=== PATIENT | male | born 1940 | race Caucasian/White ===

== ENCOUNTER 2016-06-28 05:46 | Day surgery (SDC) | payer BC, MEDICARE ==
[2016-06-22 16:56] VITALS: BMI 28.0
[2016-06-28] MEDS ORDERED: LACTATED RINGERS 1,000 ML IV SCH (06:06)
[2016-06-28] MEDS ORDERED: SODIUM CHLORIDE 0.9% 1,000 ML IV SCH ×2 (06:06→07:30)
[2016-06-28] MEDS ORDERED: BENZOCAINE SPRAY 100 APPLIC/CAN MUCOUS MEM ONE ×2 (07:00→07:09)
[2016-06-28] MEDS ORDERED: KETOROLAC 30 MG/ML 1 ML VIAL ONE (07:05)
[2016-06-28] MEDS ORDERED: PROPOFOL 10 MG/ML 20 ML VIAL IV ONE (07:05)
[2016-06-28 07:12] VITALS: RESP 16
[2016-06-28] MEDS ORDERED: FLUNISOLIDE INHALATION PRN (07:24)
[2016-06-28] MEDS ORDERED: NON-FORMULARY DRUG (Omeprazole [Prilosec] 20 MG) PO SCH (07:30)
--- NOTE | 2016-06-28 07:35 | ECHOT ---
DATE OF SERVICE: INDICATION: Evaluation of left atrial appendage. PROCEDURE: After explaining the procedure to the patient's, its risk and complications, his blood pressure, heart rate, O2 saturation was monitored. The throat was sprayed with Cetacaine. He received sedation per Anesthesia Department. The probe was introduced into the esophagus without difficulty. Images were obtained. Following that, the probe was removed. There was no immediate complication. FINDINGS: Left atrial size is mildly dilated. Left ventricular size and systolic function normal. The left atrial appendage is normal. Left ventricular size and systolic function are normal. The aortic valve with fibrocalcific change of aortic cusp with preserved opening. Mitral annular calcification was noted. The tricuspid valve is normal. Descending thoracic aorta revealed mild atherosclerotic changes. No pericardial effusion was noted. Contrast bubble study revealed no evidence of shunting across the interatrial septum. Doppler pulse wave obtained revealed a moderate mitral with mild to moderate tricuspid and mild aortic regurgitation. There was no shunting across the interatrial septum. CONCLUSION: 1. Normal left ventricular size and systolic function. 2. Dilated left atrium with normal appearance of left atrial appendage. 3. Aortic sclerosis with no evidence of stenosis. 4. Mitral annular calcification. 5. Moderate mitral with mild to moderate tricuspid regurgitation and mild aortic regurgitation. MTDD
--- NOTE | 2016-06-28 07:35 | CE ---
DATE OF SERVICE: CARDIOVERSION PROCEDURE NOTE INDICATIONS: Atrial flutter. PROCEDURE: After explaining the procedure to patient, its risks and complications and after performing transesophageal echocardiogram and obtaining sedated state by anesthesia department, a synchronized biphasic cardioversion using 200 joules was performed with druze of normal sinus rhythm. There was no immediate complication.
[2016-06-28 08:27] VITALS: TEMP 98
[2016-06-28 08:54] VITALS: BP 117/57; PULSE 74
[2016-06-28] MEDS ORDERED: predniSONE 10 MG TAB PO SCH (09:00)
[2016-06-28] MEDS ORDERED: THEOPHYLLINE 24 HOUR 300 MG CAP.ER.24H PO SCH (09:00)
[2016-06-28] MEDS ORDERED: DILTIAZEM CD 180 MG CAP.ER.24H PO SCH (09:00)
[2016-06-28] MEDS ORDERED: MONTELUKAST 10 MG TAB PO SCH (09:00)
[2016-06-28] MEDS ORDERED: AMIODARONE 200 MG TAB PO SCH (09:00)
[2016-06-28] MEDS ORDERED: NON-FORMULARY DRUG (Celecoxib 200 MG) PO SCH (09:00)
[2016-06-28] MEDS ORDERED: NON-FORMULARY DRUG (Rivaroxaban [Xarelto] 20 MG) PO SCH (09:00)
== END 2016-06-28 08:55 | disposition home or self-care (01) ==
LOC: CATHCVL 05:46
PROVIDERS: ATTEND Internal Medicine Interventional Cardiology
DX: I48.1 Persistent atrial fibrillation (principal); I25.10 Atherosclerotic heart disease of native coronary artery without angina pectoris; Z95.5 Presence of coronary angioplasty implant and graft; I08.3 Combined rheumatic disorders of mitral, aortic and tricuspid valves; I10 Essential (primary) hypertension; E78.5 Hyperlipidemia, unspecified; Z79.01 Long term (current) use of anticoagulants; Z79.51 Long term (current) use of inhaled steroids; Z79.52 Long term (current) use of systemic steroids; Z79.899 Other long term (current) drug therapy; Z88.6 Allergy status to analgesic agent; Z91.09 Other allergy status, other than to drugs and biological substances
CPT/HCPCS: 93312; 93320; 93005; 93325; 92960; J1885; J2704; 99152

== ENCOUNTER 2017-02-12 10:31 | Inpatient (IN) | payer BC, MEDICARE ==
[2017-02-12 16:38] LABS: Anisocytosis Slight; Basophils % (A) 0 %; CH 32.4; CHCM 32.6; Eosinophils # (A) 0.1 k/uL (0-0.7); Eosinophils % (A) 1 %; HCT 42.7 % (39.0-53.0); HDW 2.97; HGB 13.9 gm/dL (13.0-17.5); Luc # (Auto) 0.16; Luc % (Auto) 2; Lymphocytes # (A) 0.4 k/uL (1.0-4.8); Lymphocytes % (A) 5 %; MCH 32.5 pg (25.0-35.0); MCHC 32.5 g/dL (31.0-37.0); Macrocytosis Slight; Mean Platelet Volume 7.1; Monocytes # (A) 0.4 k/uL (0-1.0); Monocytes % (A) 5 %; Neutrophils # (A) 6.8 k/uL (1.3-7.7); Neutrophils % (A) 86 %; RBC 4.27 m/uL (4.30-5.90); RDW 16.5 % (11.5-15.5); WBC 7.9 k/uL (3.8-10.6); WBC (Perox) 8.57
[2017-02-12 16:47] LABS: Prothrombin Time 10.2 sec (9.0-12.0)
[2017-02-12 16:59] LABS: ALT 38 U/L (21-72); AST 23 U/L (17-59); Alkaline Phosphatase 59 U/L (38-126); Anion Gap 7 mmol/L; Blood Urea Nitrogen 18 mg/dL (9-20); Calcium 8.4 mg/dL (8.4-10.2); Carbon Dioxide 26 mmol/L (22-30); Chloride 105 mmol/L (98-107); Glucose 110 mg/dL (74-99); Non-African American GFR(MDRD) >60 (>60 ml/min/1.73 sqM); Potassium 4.5 mmol/L (3.5-5.1); Sodium 138 mmol/L (137-145); Total Bilirubin 0.4 mg/dL (0.2-1.3); Total Protein 5.4 g/dL (6.3-8.2)
[2017-02-12] MEDS: SODIUM CHLORIDE 0.9% 1,000 ML IV SCH (18:50)
[2017-02-12] MEDS ORDERED: BUDESONIDE 0.5 MG/2 ML NEBU INHALATION PRN (21:44)
[2017-02-13] MEDS: PANTOPRAZOLE 40 MG TABLET PO SCH (06:36)
[2017-02-13] MEDS: SODIUM CHLORIDE 0.9% 1,000 ML IV SCH ×2 (06:38→17:26)
[2017-02-13] MEDS: ALBUTEROL NEBULIZED 2.5 MG/3 ML INHALATION PRN (07:22)
[2017-02-13] MEDS ORDERED: DILTIAZEM CD 180 MG CAP.ER.24H PO SCH (09:00)
[2017-02-13] MEDS: MONTELUKAST 10 MG TAB PO SCH (09:09)
[2017-02-13] MEDS: MULTIVITAMINS, THERA 1 EACH TAB PO SCH (09:09)
[2017-02-13] MEDS: MELOXICAM 7.5 MG TAB PO SCH (09:10)
[2017-02-13] MEDS: CHOLECALCIFEROL 1,000 UNIT TAB PO SCH (09:10)
[2017-02-13] MEDS: RIVAROXABAN 10 MG TAB PO SCH (09:10)
[2017-02-13] MEDS: TAMSULOSIN 0.4 MG CAP.ER.24H PO SCH (09:11)
[2017-02-13] MEDS: THEOPHYLLINE 24 HOUR 300 MG CAP.ER.24H PO SCH (09:11)
[2017-02-13] MEDS: predniSONE 10 MG TAB PO SCH (09:11)
[2017-02-13] MEDS: CYANOCOBALAMIN 500 MCG TAB PO SCH (09:11)
--- NOTE | 2017-02-13 11:36 | ECHOF ---
Referral Reason:aflutter MEASUREMENTS -------- HEIGHT: 180.3 cm WEIGHT: 80.7 kg BP: 130/71 IVSd: 1.3 cm (0.6 - 1.1) LVIDd: 3.1 cm (3.9 - 5.3) LVPWd: 1.0 cm (0.6 - 1.1) EDV(Teich): 38 ml IVSs: 1.4 cm LVIDs: 2.2 cm LVPWs: 1.4 cm %IVS Thck: 9 % ESV(Teich): 16 ml EF(Teich): 57 % %FS: 29 % SV(Teich): 22 ml Ao Diam: 3.7 cm (2.0 - 3.7) AV Cusp: 1.9 cm (1.5 - 2.6) LA Diam: 2.8 cm (2.7 - 3.8) MV EXCURSION: 17.007 mm (> 18.000) MV EF SLOPE: 216 mm/s (70 - 150) MR Vmax: 1.27 m/s MR maxP.42 mmHg AV Vmax: 1.47 m/s AV maxP.63 mmHg AR Vmax: 3.44 m/s AR maxP.40 mmHg AR PHT: 512 ms AR Dec Time: 1765 ms AR Dec [place]: 2.0 m/s TR Vmax: 2.50 m/s TR maxP.10 mmHg RAP: 5.00 mmHg RVSP: 30.10 mmHg FINDINGS -------- The rhythm appears to be atrial flutter. This was a technically good study. There is mild concentric left ventricular hypertrophy. Overall left ventricular systolic function is normal with, an EF between 55 - 60 %. The right ventricle is normal in size and function. The left atrium is normal in size. The right atrium is normal in size. Aortic valve is trileaflet and is mildly thickened. There is mild aortic regurgitation. The mitral valve leaflets are mildly thickened. Mild mitral regurgitation is present. Mild tricuspid regurgitation present. The right ventricular systolic pressure, as measured by Doppler, is 30.10mmHg. Pulmonic valve appears structurally normal. The aortic root size is normal. The pericardium is normal. CONCLUSIONS -------- 1. The rhythm appears to be atrial flutter. 2. The mitral valve leaflets are mildly thickened. 3. Mild mitral regurgitation is present. 4. Mild tricuspid regurgitation present. 5. The right ventricular systolic pressure, as measured by Doppler, is 30.10mmHg. 6. Pulmonic valve appears structurally normal. 7. The aortic root size is normal. 8. The pericardium is normal. 9. This was a technically good study. 10. There is mild concentric left ventricular hypertrophy. 11. Overall left ventricular systolic function is normal with, an EF between 55 - 60 %. 12. The right ventricle is normal in size and function. 13. The left atrium is normal in size. 14. The right atrium is normal in size. 15. Aortic valve is trileaflet and is mildly thickened. 16. There is mild aortic regurgitation. G[employer] PLUMBING INSPECTOR: Angela Dukes RDCS
--- NOTE | 2017-02-13 14:49 | HP ---
CHIEF COMPLAINT: Shortness of breath and chest pain with palpitations going on close to 2 weeks with shortness of breath just starting over the last 24 hours. This is a 76-year-old white male with a longstanding history of atrial fib flutter who has been in atrial fib for a long period of time and had been asymptomatic and of a sudden had shortness of breath and nonspecific chest pain. Came to my office. He was seen to have borderline CHF with some pulmonary venous congestion. At that period of time was placed in the hospital accordingly. He was admitted up to [facility]. Patient came to the hospital and unbeknownst to me, instead of being placed upstairs was actually sat in a waiting area for up to 4-1/2 hours before he came upstairs. I just talked to Cardiology this morning and they received a consult on him 8:00, 9:00 last p.m. after I told the girl here up on [facility] to take care of him. Through the night he has had no chest pain. He is still short of breath and had a very restless night. His telemetry through the night showed a heart rate in atrial flutter somewhere between 80 to 130 and 140 which was much improved since his admission. He basically has also a history of asthma, COPD. He worked in the [employer] business for a long period of time. This gentleman had a longstanding history of cardiovascular disease. He has had cardiac stent placement. Other surgeries had with left knee total and herniography also and shoulder surgery. He had a reversed shoulder. His past medical history is that of hypertension, cardiovascular disease and atrial fib. His social history, patient is not a smoker, occasional drinker. Lives with his . His allergies are ASPIRIN and to IV DYE. His medications are that of a daily vitamin. He takes also vitamin B12. He takes a vitamin B6. He is on Xarelto 20 daily. Fosamax 0.4 daily. He is Lunesta 2 mg p.r.n. for sleep. Tylenol with Codeine No. 3 p.r.n. for severe back pain. Albuterol updrafts p.r.n. He is on Cardiozyme ER 180 at 24 hours, Spiriva 18 mcg by puff daily, Maxalt inhaler, Lasix 20 twice a day, Celebrex 200 mg daily, omeprazole 20 daily, prednisone 10, Theophylline 300 and potassium 10. He also was on [place] as needed for pain and Zaroxolyn 0.2 daily. There is some question about him still being on the amiodarone 200 mg a day. Cardiac consult has been taken care off and also an echocardiogram. REVIEW OF SYSTEMS: CARDIOPULMONARY: Shortness of breath, nonspecific chest pain with palpitations. This has been going on for 2 weeks with shortness of breath just being acute. GI: No hematemesis, melena, hematochezia, no constipation, no diarrhea. : Has been normal except he does have BPH and has a very hard time urinating without his Flomax. NEUROMUSCULAR: Has weakness in his arms and his legs, especially on his left side due to his polio longstanding and also some progressive arthritis. VASCULAR: He has some varicose veins in his lower legs with a fair amount of swelling. He does have a history of coronary artery disease. INTEGUMENTARY: He has got some stasis dermatitis and also varicosities in his legs. PHYSICAL EXAMINATION: Temperature is 100, blood pressure is 130/70, respiratory rate is 18, pulse rate is 84. EYES: Pupils are equal, round and reactive to light and accommodation. ENT showed tympanic membranes and pharynx appears to be negative. Neck is supple with a midline trachea. Chest has decreased breath sounds throughout. Heart is in a regular rate and on EKG shows evidence of a flutter. Abdomen is soft, nontender with no organomegaly. Lower extremities, he has got arthritis in these and you can see the knee replacement scar. He has got swelling in the lower legs along with varicosities. He has got this very distorted feet with severe arthritis, polio on the left side of his arm and hand with atrophy. He has decreased shoulder range of motion in both sides. He has got decreased hand strength on the right side because of polio but also because of arthritis. The cervical spine has decreased limitations of the neck. He has some kyphosis, lower back range of motion is within normal limits but patient is very unsteady on his legs and pain in his lower back. ASSESSMENT: 1. Acute onset of atrial flutter, acute atrial fibrillation/flutter. 2. Hypertension. 3. Polio. 4. Severe asthma, secondary chronic obstructive pulmonary disease. 5. Previous history of atrial fibrillation. 6. Benign prostatic hypertrophy. 7. Generalized osteoarthritis. 8. Previous history of coronary artery disease with stent placement. PLAN: Patient was now admitted. I talked with Cardiology. They will see him immediately and follow him accordingly. LEE
[2017-02-13] MEDS: DILTIAZEM ORAL 60 MG TAB PO SCH ×3 (17:26→20:58)
[2017-02-13 20:48] LABS: Glucose,Whole Blood 123 mg/dL (75-99)
[2017-02-13] MEDS: HYDROcodone/APAP 10-325MG 1 EACH TAB PO PRN (23:27)
[2017-02-14] MEDS: PANTOPRAZOLE 40 MG TABLET PO SCH (07:03)
[2017-02-14] MEDS: RIVAROXABAN 10 MG TAB PO SCH (08:44)
[2017-02-14] MEDS: MELOXICAM 7.5 MG TAB PO SCH (08:44)
[2017-02-14] MEDS: MULTIVITAMINS, THERA 1 EACH TAB PO SCH (08:44)
[2017-02-14] MEDS: DILTIAZEM ORAL 60 MG TAB PO SCH ×3 (08:44→20:27)
[2017-02-14] MEDS: CHOLECALCIFEROL 1,000 UNIT TAB PO SCH (08:44)
[2017-02-14] MEDS: predniSONE 10 MG TAB PO SCH (08:44)
[2017-02-14] MEDS: TAMSULOSIN 0.4 MG CAP.ER.24H PO SCH (08:44)
[2017-02-14] MEDS: CYANOCOBALAMIN 500 MCG TAB PO SCH (08:44)
[2017-02-14] MEDS: THEOPHYLLINE 24 HOUR 300 MG CAP.ER.24H PO SCH (08:44)
[2017-02-14] MEDS: MONTELUKAST 10 MG TAB PO SCH (08:44)
--- NOTE | 2017-02-14 12:38 | P.PN ---
Subjective Principal diagnosis: Atrial flutter This is a 76-year-old gentleman with history of hypertension, asthma, COPD, who presented to the hospital with symptoms of shortness of breath with associated palpitations. Patient was found to be in atrial flutter by EKG on admission. He was seen in consultation yesterday by Dr. Heredia. Cardizem orally was added to his medication regime. Patient has been on Xarelto as an outpatient for paroxysmal atrial fibrillation. Patient was advised to undergo atrial flutter ablation, this will be scheduled tomorrow with Dr. Borrego. This morning he continues to be in atrial flutter. Overall he states that his breathing is stable. CBC normal, potassium 4.5, BUN 18, creatinine 0.7. TSH is 0.3, troponins negative 3. Blood pressure today 112/60 with a heart rate in the 80s. Temperature 97.9. Echocardiogram with Doppler study was performed which revealed normal left ventricular systolic function. Objective - Vital Signs Vital signs: Vital Signs Temp 97.9 F 02/14/17 12:00 Pulse 82 02/14/17 12:00 Resp 16 02/14/17 12:00 BP 112/62 02/14/17 12:00 Pulse Ox 96 02/14/17 12:00 Intake & Output 02/13/17 02/14/17 02/14/17 18:59 06:59 18:59 Intake Total 1200 150 Output Total 350 Balance 850 150 Weight 80.9 kg Intake: IV 0 Sodium Chloride 0.9% 1, 0 000 ml @ 75 mls/hr IV . [id number] JIMMY Rx#:[id number] Oral 1200 150 Output: Urine 350 Other: # Voids 1 # Bowel Movements 0 - Exam PHYSICAL EXAMINATION: HEENT: Head is atraumatic, normocephalic. Pupils equal, round. Neck is supple. There is no elevated jugular venous pressure. HEART EXAMINATION: S1 and S2 irregularly irregular CHEST EXAMINATION: Lungs are clear to auscultation and precussion. No chest wall tenderness is noted on palpation or with deep breathing. ABDOMEN: Soft, nontender. Bowel sounds are heard. No organomegaly noted. EXTREMITIES: 2+ peripheral pulses with no evidence of peripheral edema and no calf tenderness noted. NEUROLOGIC patient is awake, alert and oriented -3. . - Labs CBC & Chem 7: 02/12/17 16:15 02/12/17 16:15 Labs: Abnormal Lab Results - Last 24 Hours (Table) 02/13/17 Range/Units 20:46 POC Glucose (mg/dL) 123 H (75-99) mg/dL Assessment and Plan (1) Atrial flutter Status: Acute (2) Paroxysmal a-fib Status: Acute (3) Asthma Status: Acute (4) Sleep apnea Status: Acute (5) CAD (coronary artery disease) Status: Acute Plan: From cardiology's perspective, we'll continue the patient on his current medications. He will be scheduled for atrial flutter ablation tomorrow with Dr. Borrego. DNP note has been reviewed, I agree with a documented findings and plan of care. Patient was seen and examined.
[2017-02-14] MEDS: SODIUM CHLORIDE 0.9% 1,000 ML IV SCH (15:25)
--- NOTE | 2017-02-14 15:42 | CONS ---
CONSULTATION Date of Consultation: DATE OF CONSULTATION: 02/13/2017 This is a patient of Dr. Cancino and Dr. Larose who presented to Dr. Larose's office complaining of shortness of breath for the last several weeks, and particularly so for the weekend prior. He denied any chest discomfort. He was just complaining of shortness of breath and lack of energy, tiredness and fatigue. When he came into the hospital he was in atrial flutter with RVR. He was sent by Dr. Larose to the ER and then subsequently came upstairs to the telemetry unit. When I saw him, he was still in atrial flutter and he has been anticoagulated appropriately. No loss of consciousness, dizziness, simply shortness of breath, tiredness and fatigue. PAST HISTORY: Atrial fibrillation. He has undergone electrical cardioversion by Dr. Cacnino about 6 months back. At that time, he had a ALEXANDER. He does have a mild RA and RV enlargement LV function is normal. Past history also includes hypertension, COPD. SOCIAL HISTORY: No history of smoking, occasional alcohol use. ALLERGIES: ASPIRIN and IV DYE. MEDICATIONS AT HOME: Reviewed and are documented in the chart and they include vitamins, Xarelto 20 mg p.o. daily, Fosamax, Lunesta, Tylenol with codeine, Cardizem ER 180 mg daily, Spiriva, Maxair, Lasix, Celebrex, omeprazole, prednisone 10 mg daily, Theophylline and potassium. He also takes Zaroxolyn as needed. REVIEW OF SYSTEMS: No fever, chills, or rigors. No cough or expectoration. No nausea, vomiting or diarrhea. No hematuria or dysuria. No stroke, seizures, skin lesions or musculoskeletal complaints. PHYSICAL EXAMINATION: His blood pressure on admission was 130/70 mmHg and his pulse rate is in the 80s to 90s. HEAD AND NECK EXAMINATION: Normal, no JVD, thyromegaly or carotid bruits. Heart sounds irregular with no murmurs, gallops, no rub. Breath sounds are reduced bilaterally. The are very faint rhonchi, no crackles bilaterally. Abdomen is soft, nontender. Extremities are warm, no edema. He has had knee surgery in the past. A 12-lead ECG shows a rhythm consistent with typical atrial flutter. IMPRESSION: 1. Atrial flutter, symptomatic on anticoagulation with Xarelto 20 mg p.o. daily. 2. Atrial fibrillation status post electrical cardioversion 6 months back. 3. Hypertension. 4. History of polio. 5. History of asthma, on steroids. 6. Past history of coronary artery disease with stent placement. SUGGEST: Continue anticoagulation with Xarelto 20 mg p.o. daily. Switch from oral Cardizem to short-acting Cardizem. Will hold Cardizem after 24 hours and proceed with atrial flutter ablation. This gentleman is already anticoagulated and will proceed with atrial flutter ablation on and hopefully he should be able to go home on Sunday. Check TSH. MMODL / IJN: [id number] /
[2017-02-15] MEDS: PANTOPRAZOLE 40 MG TABLET PO SCH (06:21)
[2017-02-15] MEDS: CHOLECALCIFEROL 1,000 UNIT TAB PO SCH (06:22)
[2017-02-15] MEDS: MELOXICAM 7.5 MG TAB PO SCH (06:22)
[2017-02-15] MEDS: CYANOCOBALAMIN 500 MCG TAB PO SCH (06:22)
[2017-02-15] MEDS: RIVAROXABAN 10 MG TAB PO SCH (06:24)
[2017-02-15] MEDS: predniSONE 10 MG TAB PO SCH (06:24)
[2017-02-15] MEDS: MONTELUKAST 10 MG TAB PO SCH (06:24)
[2017-02-15] MEDS: MULTIVITAMINS, THERA 1 EACH TAB PO SCH (06:24)
[2017-02-15] MEDS: SODIUM CHLORIDE 0.9% 1,000 ML IV SCH (06:25)
[2017-02-15] MEDS: THEOPHYLLINE 24 HOUR 300 MG CAP.ER.24H PO SCH (06:25)
[2017-02-15] MEDS: TAMSULOSIN 0.4 MG CAP.ER.24H PO SCH (06:25)
[2017-02-15] MEDS: ALBUTEROL NEBULIZED 2.5 MG/3 ML INHALATION PRN (09:03)
--- NOTE | 2017-02-15 11:14 | PN ---
This is a 76 -year-old white male that came in with acute atrial flutter. At this point, he is being, I talked with Dr. Borrego, he is being set up for ablation tomorrow. He has less shortness of breath, less chest pain. His flutter is unchanged anywhere from 80 to 120. No further chest pain at this time. Again, this gentleman has longstanding history of COPD. He has history of polio. History of atrial fib, hypertension, asthma and previous cardiac stent placement. Surgeries include that of total knee, hernia repair, shoulder , reverse shoulder surgery. Medications are unchanged from previous noted yesterday. Review of systems: Cardiopulmonary: Still some shortness of breath, nonspecific. Palpitations. No chest pain. No paroxysmal nocturnal dyspnea. Did not get much sleep last night the patient states. GI: No hematemesis, melena or hematochezia, constipation or diarrhea. : Normal except for BPH. He had a hard time urinating ( ). Neuromuscular: Just weakness in legs and arms especially left side due to polio. Some progressive arthritis. Varicose veins positive in both legs. Coronary artery disease. Integument: Stasis dermatitis and varicosity disease in his legs. PHYSICAL EXAMINATION: Temperature 98, heart rate was 83. Blood pressure 117/ 81. Respiratory rate 16. Eyes: Pupils are equal, round and reactive to light and accommodation. ENT: Tympanic membranes and pharynx to be negative. Neck is supple with midline trachea. Chest is essentially clear to auscultation with minimal wheezes. Heart is irregularly irregular with atrial flutter. Abdomen soft, nontender with no organomegaly. Weakness in left leg and deformity to his left hand from polio plus swelling in right lower leg. Lab work from yesterday Chem-17 is within normal limits as is hematological stable. Blood sugars have also been normal. ASSESSMENT: 1. Acute atrial flutter, history of atrial fibrillation. 2. History of polio. 3. Long standing history of hypertension. 4. Longstanding asthma. 5. Benign prostatic disorder. 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 7. Previous coronary artery disease with stent placement. 8. Generalized osteoarthritis. PLAN: I talked with Dr. Borrego. The patient is being set up for ablation. He understands all and was explained to accordingly. Please refer to my orders. MTDD
[2017-02-15] MEDS ORDERED: MIDAZOLAM 2 MG/2 ML VIAL IV ONE (11:21)
[2017-02-15] MEDS ORDERED: MIDAZOLAM 2 MG/2 ML VIAL ONE ×2 (11:22→12:23)
[2017-02-15] MEDS ORDERED: IV FLUID CONTINUATION 1,000 ML IV ONE (12:23)
[2017-02-15] MEDS ORDERED: NEOSTIGMINE 1 MG/ML 10 ML VIAL ONE (12:23)
[2017-02-15] MEDS ORDERED: fentaNYL (PF) 50 MCG/ML 2 ML AMP ONE (12:23)
[2017-02-15] MEDS ORDERED: LIDOCAINE 1% INJ 10MG/ML (20 ML MDV) ONE (12:23)
[2017-02-15] MEDS ORDERED: GLYCOPYRROLATE 0.2 MG/ML 2 ML VIAL ONE (12:23)
[2017-02-15] MEDS ORDERED: PHENYLEPHRINE-0.9% NACL SYG 1 MG/10 ML SYRINGE ONE (12:23)
[2017-02-15] MEDS ORDERED: SUCCINYLCHOLINE CHLORIDE 100 MG/5 ML SYR IV ONE (12:23)
[2017-02-15] MEDS ORDERED: ROCURONIUM BROMIDE 10 MG/ML 10 ML VIAL IV ONE (12:23)
[2017-02-15] MEDS ORDERED: ePHEDrine SULFATE/0.9% NACL/PF 50 MG/5 ML SYRINGE IV ONE (12:23)
[2017-02-15] MEDS ORDERED: PROPOFOL 10 MG/ML 20 ML VIAL IV ONE (12:23)
[2017-02-15] MEDS ORDERED: LIDOCAINE 2% INJ 20 MG/ML SQ ONE (13:12)
[2017-02-15] MEDS ORDERED: HEPARIN SODIUM (1,000 UNIT/ML) 1,000 UNIT in SODIUM CHLORIDE 0.9% 1,000 ML IRRIGATION ONE (15:51)
[2017-02-15] MEDS ORDERED: HYDROcodone/APAP 5-325MG 1 EACH TAB PO PRN (15:51)
[2017-02-15] MEDS ORDERED: ACETAMINOPHEN IV (For NPO) 1,000 MG in EMPTY BAG 1 BAG IVPB ONE (15:51)
[2017-02-15] MEDS ORDERED: ACETAMINOPHEN TAB 325 MG TAB PO PRN (15:51)
[2017-02-15] MEDS ORDERED: LACTATED RINGERS 1,000 ML IV ONE (15:51)
--- NOTE | 2017-02-15 15:54 | P.PCN ---
Preoperative Diagnosis: Procedures Comprehensive diagnostic EP study with attempted arrhythmia induction CS pacing and recording Programmed stimulation following Isuprel 3-D mapping of the right atrium Intracardiac echocardiography RF ablation of atrial flutter, typical with confirmed bidirectional the differential pacing Result Successful radiofrequency ablation for atrial flutter. Plan Anticoagulation long-term to continue Watch for episodes of atrial fibrillation Postoperative Diagnosis: Procedure(s) Performed: Implants: Indications for Procedure: Operative Findings: Description of Procedure:
[2017-02-15] MEDS: DILTIAZEM CD 180 MG CAP.ER.24H PO SCH (18:12)
--- NOTE | 2017-02-15 18:45 | PN ---
PROGRESS NOTE Date of Service: 76-year-old, white male that was admitted directly from my office with acute onset of atrial flutter, had been going on for a few days prior to admission. Had shortness of breath and nonspecific chest pain. He was brought to the hospital and was put up on telemetry. At that period of time Cardiology evaluated him and now he is being set up for his ablation which is to be performed today. Today his complaints are wheezing and on auscultation he was wheezing so an updraft was being completed before he went down. Last night he did fine except for some wheezing that he was having. He did have a history of atrial fibrillation status post electrical cardioversion six months ago. That was not successful. At this time Cardizem is being held for 24 hours as atrial flutter ablation is to be performed: Had a long talk with Dr. Borrego, process owner, that stated the above. LABORATORY DATA: Blood sugars were done and there was nothing new since February 12. REVIEW OF SYSTEMS: CARDIOPULMONARY: He is short of breath. Nonspecific chest discomfort, tightness in nature, no severe pain. No paroxysmal nocturnal dyspnea. He is wheezing at this time with minimal amount of cough. GI: No hematemesis melena or hematochezia. : Good urination. NEUROMUSCULAR: Just the weakness he has had from his polio in his arms and legs accordingly. PHYSICAL EXAMINATION: VITAL SIGNS: Blood pressure is 108/67, heart rate is in the 70s, respiratory rate is 16, O2 saturation is 94 with a 97 temperature. EYES: Pupils are equal, round, react to light and accommodation. ENT: Showed tympanic membranes and pharynx to be negative. NECK: Supple with a midline trachea. CHEST: Essentially clear except for some wheezes on expiration. HEART: Regular, irregular with atrial flutter. At the time that I listened to him his heart rate was between 90 and 110. His O2 saturation is 94 on room air. Alert, well oriented to person, place, and time. Both him and his understand the procedure that is about to occur. They both commented on how excellent Dr. Borrego presented the ablation procedure and reason for. Patient is anxious but there is no depression. ABDOMEN: Soft, nontender with no organomegaly. Negative swelling in the legs. Good strength and good palpable lower extremity pulses. ASSESSMENT: 1. Acute atrial flutter. 2. Previous history of atrial fibrillation. 3. Long-standing polio with left arm dystrophy. 4. Post-polio syndrome with some nonspecific generalized pain. 5. Hypertension. 6. History of asthma on steroids. 7. Coronary artery disease with previous stent placement. PLAN: We will place the patient on medication accordingly per Dr. Borrego. He will go for ablation today and patient understands if everything goes well, possibility of discharge in the a.m. Echocardiogram was also completed which shows his EF to be between 50 and 65%. Right heart pressure was normal and valves are all within normal limits. Considered to be with very, very mild left ventricular hypertrophy. Prognosis is good. Please refer to my orders. MMODL / IJN: [id number] /
[2017-02-15] MEDS: HYDROcodone/APAP 10-325MG 1 EACH TAB PO PRN (21:10)
[2017-02-16] MEDS: HYDROcodone/APAP 10-325MG 1 EACH TAB PO PRN (05:15)
[2017-02-16] MEDS: PANTOPRAZOLE 40 MG TABLET PO SCH (07:32)
[2017-02-16 08:13] VITALS: BP 101/59; PULSE 111; RESP 16; TEMP 97
[2017-02-16] MEDS: DILTIAZEM CD 180 MG CAP.ER.24H PO SCH (08:25)
[2017-02-16] MEDS: CHOLECALCIFEROL 1,000 UNIT TAB PO SCH (08:25)
[2017-02-16] MEDS: CYANOCOBALAMIN 500 MCG TAB PO SCH (08:25)
[2017-02-16] MEDS: predniSONE 10 MG TAB PO SCH (08:26)
[2017-02-16] MEDS: MULTIVITAMINS, THERA 1 EACH TAB PO SCH (08:26)
[2017-02-16] MEDS: MELOXICAM 7.5 MG TAB PO SCH (08:26)
[2017-02-16] MEDS: RIVAROXABAN 10 MG TAB PO SCH (08:26)
[2017-02-16] MEDS: MONTELUKAST 10 MG TAB PO SCH (08:26)
[2017-02-16] MEDS: TAMSULOSIN 0.4 MG CAP.ER.24H PO SCH (08:27)
[2017-02-16] MEDS: THEOPHYLLINE 24 HOUR 300 MG CAP.ER.24H PO SCH (08:27)
[2017-02-16] MEDS: SODIUM CHLORIDE 0.9% 1,000 ML IV SCH (08:27)
[2017-02-16 09:49] VITALS: BMI 25.7
--- NOTE | 2017-02-16 13:37 | P.PCN ---
Preoperative Diagnosis: Patient was brought to the EP lab in a fasting state. Written informed consent was obtained prior to the procedure. Both groins were prepped and draped as a protocol and 3 venous sheaths were placed in the right femoral veins. Diagnostic catheters and intracardiac echo catheter and mapping and ablation cath was replaced. Diagnostic catheters and the high right atrium His bundle area RV and Mark sinus Patient was in the tachycardia the start of the study tachycardia cycle length 183 ms QRS 88 ms TN interval 151 ms QT 300 ms. Later when he converted to sinus rhythm during ablation is sinus cycle length was 455 ms and HV interval was 44 ms and HV interval was 31 ms. Sinus node recovery times at 504 100 ms was 641 and 661 ms. AV node Wenckebach block 370 ms. VA Wenckebach block 320 ms AV node ERP from the Mark sinus was 450\to 60 ms High-dose Isuprel was returned sinus rhythm. No A. fib induced Intracardiac echocardiography was performed no thrombus in the right atrial appendage thrombus in the left atrial appendage normal RV size and function and normal LV size and function 3-D mapping was performed Entrainment mapping of the cavo tricuspid isthmus proved concealed entrainment from the site RF ablation was performed in the cava tricuspid isthmus Atrial flutter was terminated The RF line was then completed and bidirectional block was proven with differential pacing Intracardiac echocardiography at the end of the procedure showed no pericardial effusion. Patient was successfully extubated and transferred back to telemetry Impression Diagnostic EP study revealing typical atrial flutter proven by concealed entrainment from the cavo tricuspid isthmus. Successful mapping and ablation performed Patient has sinus tachycardia after the procedure with a normal pericardium by intracardiac echo. Check TSH Postoperative Diagnosis: Procedure(s) Performed: Implants: Indications for Procedure: Operative Findings: Description of Procedure:
--- NOTE | 2017-02-16 14:30 | P.PN ---
Subjective Principal diagnosis: Atrial flutter This is a 76-year-old gentleman with history of hypertension, asthma, COPD, who presented to the hospital with symptoms of shortness of breath with associated palpitations. Patient was found to be in atrial flutter by EKG on admission. He was seen in consultation yesterday by Dr. Heredia. Cardizem orally was added to his medication regime. Patient has been on Xarelto as an outpatient for paroxysmal atrial fibrillation. Patient was advised to undergo atrial flutter ablation, this will be scheduled tomorrow with Dr. Borrego. This morning he continues to be in atrial flutter. Overall he states that his breathing is stable. CBC normal, potassium 4.5, BUN 18, creatinine 0.7. TSH is 0.3, troponins negative 3. Blood pressure today 112/60 with a heart rate in the 80s. Temperature 97.9. Echocardiogram with Doppler study was performed which revealed normal left ventricular systolic function. 02/16/2017. Patient underwent diagnostic EP study as well as atrial flutter ablation yesterday. This morning he appears to be in a sinus tachycardia. He' s been up ambulating in the hallway this morning without any difficulty. Denies any dizziness, no lightheadedness, breathing is stable. Blood pressure 100/60 heart rate 110. 93 percent on room air. Patient was also noted to have a low TSH level, which will be addressed as an outpatient by his primary care. Objective - Vital Signs Vital signs: Vital Signs Temp 97.0 F L 02/16/17 08:00 Pulse 111 H 02/16/17 09:30 Resp 16 02/16/17 08:00 BP 101/59 02/16/17 08:00 Pulse Ox 93 L 02/16/17 08:00 Intake & Output 02/15/17 02/16/17 02/16/17 18:59 06:59 18:59 Intake Total 2252 236 Output Total 295 900 Balance 1956 - 236 Weight 81.5 kg 81.5 kg Intake: IV 2172 Intake, IV Titration 80 Amount Sodium Chloride 0.9% 1, 80 000 ml @ 20 mls/hr IV . Q24H JIMMY Rx#:[id number] Oral 236 Output: Urine 295 900 Other: Voiding Method Toilet Urinal Urinal # Voids 2 1 1 - Exam PHYSICAL EXAMINATION: HEENT: Head is atraumatic, normocephalic. Pupils equal, round. Neck is supple. There is no elevated jugular venous pressure. HEART EXAMINATION: S1 and S2 normal CHEST EXAMINATION: Lungs are clear to auscultation and precussion. No chest wall tenderness is noted on palpation or with deep breathing. ABDOMEN: Soft, nontender. Bowel sounds are heard. No organomegaly noted. EXTREMITIES: 2+ peripheral pulses with no evidence of peripheral edema and no calf tenderness noted. NEUROLOGIC patient is awake, alert and oriented -3. . - Labs CBC & Chem 7: 02/12/17 16:15 02/12/17 16:15 Assessment and Plan (1) Atrial flutter Status: Acute (2) Paroxysmal a-fib Status: Acute (3) Asthma Status: Acute (4) Sleep apnea Status: Acute (5) CAD (coronary artery disease) Status: Acute (6) S/P ablation of atrial flutter Status: Acute Plan: From cardiology's perspective, we'll continue the patient on his current medications. He may be able to be discharged home from cardiology's perspective. A low up appointment with Dr. Cancino. DNP note has been reviewed, I agree with a documented findings and plan of care. Patient was seen and examined.
--- NOTE | 2017-02-17 12:50 | DS ---
DISCHARGE SUMMARY DATE OF ADMISSION: 02/12/2017. DATE OF DISCHARGE: 02/16/2017 DISCHARGE DIAGNOSES: 1. Symptomatic acute atrial flutter. 2. History of hypertension. 3. Polio. 4. Severe asthma and secondary chronic obstructive pulmonary disease. 5. Previous history of atrial fibrillation. 6. Benign prostatic hypertrophy. 7. Generalized osteoarthritis and. 8. Previous coronary artery disease with stent placement. This is a 76-year-old white male that came to my office with acute atrial fib/flutter. He had a rate between 80 and 110 and he was very short of breath, immediately placed into the hospital and when he also appeared to have some borderline CHF and pulmonary congestion, at that time he was placed in the hospital on [facility]. I brought Cardiology to take into see him. Dr. Borrego saw him and took him up to ablation on day before discharge. It was successful and now patient is in sinus rhythm. At this time he feels good. He has no shortness of breath. No chest pain. He continues to do well and I had a long talk with him and now he is going to be discharged. DISCHARGE REVIEW OF SYSTEMS: At this period of time, his constitutional: He is well orientated to person, place and thing. He feels much improved with decreased shortness of breath. No chest pain. His eyes are without double vision. ENT: He said he has a dry mouth and some poor hearing. RESPIRATORY: He is coughing occasionally, says it is postnasal drip. CARDIOVASCULAR: No chest pain. No orthopnea. No paroxysmal nocturnal dyspnea and no palpitations. GI: No hematemesis, melena, hematochezia. : He says is no excessive urination. INTEGUMENTARY: He has no on his skin, except he does have some swelling still in the ankles. ENDOCRINE: He has a little bit of a rapid heartbeat. Will watch accordingly. Dr. Heredia I talked about it, will do some investigation of his thyroid. ALLERGY/IMMUNE: There is nothing new. HEMATOLOGICAL: He is not anemic. His white count has been normal. MUSCULOSKELETAL: Just weakness in his legs, especially in his left arm and leg due to his polio. He also has some atrophy on the other side. NEUROLOGICALLY: Occasionally he is unsteady, but that is with his neurological disease. PSYCHIATRIC: He is very happy with what happened. No shortness of breath or chest pain. No orthopnea. PHYSICAL EXAMINATION: At this time, his blood pressure 101/59, heart rate is right around 100, temperature is 97, respiratory rate 16. EYES: Pupils are equal, round, reactive to accommodation. ENT shows a dry mouth. Tympanic membranes are normal. Neck is supple with a midline trachea. Throat is negative. HEART: Sinus rhythm with no murmur. ABDOMEN: Soft, nontender with no organomegaly. He is in sinus rhythm. LUNGS: Clear to auscultation. Occasional wheeze here on deep inspiration. ABDOMEN: Soft, nontender with no organomegaly. No palpable masses. No hernias. LOWER EXTREMITIES: He has atrophy of all the left leg with some swelling bilaterally of both ankles. He also has some atrophy of the left hand which is that of polio. He also has some severe arthritis in both hands and wrists. PSYCHIATRIC: Again, well orientated to person, place and thing. No depression. No anxiety. Very happy with his outcome. LYMPHATIC: No lymph nodes in the lower groin area. SKIN: He does have some stasis dermatitis changes. He has some swelling of the legs. NEUROLOGICALLY: He is stable. Cranial nerves, grossly 2 through 12 intact. PLAN: He will be discharged home. His medications on dischargewill be: 1. Theophylline 200 mg daily. 2. Multiple vitamin. 3. Singular. 4. Albuterol updraft. 5. Pulmicort. 6. Vitamin D daily. 7. Cyanocobalmin daily. 8. Cardizem 180 daily. 9. Owings 10/325, 1 every 8 hours for severe back pain. 10.Singular 10. 11.Theophylline 24 daily. 12.He also will be on Celebrex 200 daily. 13.Omeprazole 20 daily. 14.Prednisone 10. 15.Xarelto 20. 16.Inhaler 1 puff p.r.n. or updrafts with albuterol every 6 hours p.r.n. 17.Aerospan 1 puff daily. 18.Flomax 0.4 daily. He will follow up with Dr. Cancino. He will follow up with myself within 1 to 2 weeks. He is going to be on a regular diet, at this time low salt, and his prognosis is good. MMODL / IJN: [id number] /
== END 2017-02-16 12:42 | disposition home or self-care (01) | DRG 274 ==
LOC: 6SEL 14:57
PROVIDERS: ADMIT Family Medicine; ATTEND Family Medicine
PROC: 02583ZZ Destruction of Conduction Mechanism, Percutaneous Approach (ICD-10-PCS; principal; 2017-02-15 12:30)
PROC: 4A0234Z Measurement of Cardiac Electrical Activity, Percutaneous Approach (ICD-10-PCS; 2017-02-15 12:30)
PROC: 4A023FZ Measurement of Cardiac Rhythm, Percutaneous Approach (ICD-10-PCS; 2017-02-15 12:30)
PROC: 02K83ZZ Map Conduction Mechanism, Percutaneous Approach (ICD-10-PCS; 2017-02-15 12:30)
DX: I48.3 Typical atrial flutter (principal); I11.0 Hypertensive heart disease with heart failure; J44.9 Chronic obstructive pulmonary disease, unspecified; I50.9 Heart failure, unspecified; I48.0 Paroxysmal atrial fibrillation; G14 Postpolio syndrome; I25.10 Atherosclerotic heart disease of native coronary artery without angina pectoris; I87.8 Other specified disorders of veins; N40.0 Benign prostatic hyperplasia without lower urinary tract symptoms; M19.91 Primary osteoarthritis, unspecified site; G47.30 Sleep apnea, unspecified; M54.9 Dorsalgia, unspecified; Z79.01 Long term (current) use of anticoagulants; Z79.52 Long term (current) use of systemic steroids; Z79.899 Other long term (current) drug therapy; Z95.5 Presence of coronary angioplasty implant and graft; Z96.652 Presence of left artificial knee joint; Z88.6 Allergy status to analgesic agent; Z91.041 Radiographic dye allergy status
CPT/HCPCS: 80053; 84439; 84443; 84484; 85025; 85610; 93306; 93613; 93623; 93656; 93662; 94640

== ENCOUNTER → 2017-03-20 | Outpatient (CLI) | payer BC, MEDICARE ==
--- NOTE | 2017-03-20 17:51 | PN ---
PROGRESS NOTE This is a 76-year-old male patient coming in for an annual check regarding his obstructive sleep apnea. The patient was diagnosed having MERLIN which was severe with an AHI of 56 and the patient was treated with a CPAP pressure of 8 cm of water. Since his last evaluation back in 2016, the patient has lost around 19 pounds. He used to weight 201 pounds and currently is down to 182. He is very compliant with CPAP therapy, CPAP used for more than 4 hours on 27 out of 30 days and his AHI while on treatment is down to 2.2. His leak factor is 28L per minute, and he is still benefitting from the treatment, waking up alert and refreshed during the day. He seems to be interested in losing more weight and he is aiming to a body weight of around 160. He has no other new onset co-morbidities. No chest pain. No nocturnal heartburn. No nocturia. No daytime sleepiness. He does not take any naps during the day. His current Richland score is at 5. REVIEW OF SYSTEMS: 12-point review of system was done and the positive findings are all mentioned above in the history of present illness. His interval history is positive for significant weight loss. No sleepwalking or sleep talking no parasomnias. BP is 105/68, pulse 82, respirations 16, and temperature is 97.6, saturation 97% on room air. Weight is 182, height is 5 feet 6 inches. GENERAL APPEARANCE: Calm, comfortable. HEENT: Short neck. Crowding of posterior pharynx. There is no goiter or neck mass. LUNGS: Diminished breath sounds; otherwise clear. HEART: Sounds are regular rate and rhythm. Normal S1, S2. No S3 or S4. No murmurs. ABDOMEN: Soft, nontender. No organomegaly. EXTREMITIES: No edema. No cyanosis or clubbing. NEURO: A and O x3. There are no focal neurological deficits. PSYCH: Negative for anxiety or depression. SKIN: Negative for ulcers, wounds or cellulitis. IMPRESSION: 1. Severe symptomatic obstructive sleep apnea with an apnea-hypopnea index of 56, continues to successfully be treated with continuous positive airway pressure pressure of 8 cm of water. 2. Chronic hypersomnia, improved. Richland score currently down to 5. 3. Obesity with interval weight loss. Current body mass index is down to 29.3. PLAN: 1. Continue CPAP therapy at the same level of pressure. 2. Renew the Mirage FX nose mask. 3. Encourage further weight loss. 4. Continue implementing good sleep hygiene measures. 5. See me back in a year's time, earlier if needed if treatment remains successful. MMALICIAL / IJN: [id number] /
== END ==
LOC: SLEEP 13:48
PROVIDERS: ATTEND Internal Medicine Critical Care Medicine
DX: G47.33 Obstructive sleep apnea (adult) (pediatric) (principal); G47.10 Hypersomnia, unspecified; E66.9 Obesity, unspecified; Z68.29 Body mass index [BMI] 29.0-29.9, adult

== ENCOUNTER 2018-04-22 08:21 | Emergency (ER) | payer BC, MEDICARE ==
--- NOTE | 2018-04-22 08:53 | ED ---
General Adult HPI - General Chief complaint: Extremity Injury, Lower Stated complaint: bruised leg Time Seen by Provider: 04/22/18 08:34 Source: patient, RN notes reviewed, old records reviewed Mode of arrival: wheelchair Limitations: no limitations - History of Present Illness Initial comments: 77 yo male presenting with pain swelling in the left leg. Patient's symptoms have been present for the past one week. Minor injury on the lateral aspect of his steven one week ago had noted some bruising and swelling in the area and swelling progressing into the ankle. Yesterday evening he struck the medial aspect of his left steven causing more pain and swelling. Patient is on Xarelto, for history of atrial fibrillation. Denies pain or numbness in his foot. He has been applying ice with minimal improvement. No injury noted otherwise. No head or neck trauma. No swelling in the right leg. - Related Data Home Medications Medication Instructions Recorded Confirmed Celecoxib [CeleBREX] 200 mg PO DAILY 06/24/15 04/22/18 Omeprazole [PriLOSEC] 20 mg PO AC-BRKFST 06/24/15 04/22/18 predniSONE 10 mg PO DAILY 06/24/15 04/22/18 Maxair Inhaler 1 - 2 puff INHALATION RT-DAILY PRN 08/19/15 04/22/18 Rivaroxaban [Xarelto] 20 mg PO DAILY 08/19/15 04/22/18 Flunisolide [Aerospan] 1 puff INHALATION RT-BID PRN 04/25/16 04/22/18 Tamsulosin [Flomax] 0.4 mg PO DAILY 02/12/17 04/22/18 Ascorbic Acid [Vitamin C] 1,000 mg PO DAILY 04/22/18 04/22/18 Magnesium 200 mg PO DAILY 04/22/18 04/22/18 Previous Rx's Medication Instructions Recorded Cholecalciferol [Vitamin D3] 1,000 unit PO DAILY tab 02/16/17 Cyanocobalamin [Vitamin B-12] 500 mcg PO DAILY tab 02/16/17 Diltiazem Cd [Cardizem CD] 180 mg PO DAILY cap 02/16/17 Montelukast [Singulair] 10 mg PO DAILY tab 02/16/17 Multivitamins, Thera [Multivitamin 1 each PO DAILY tab 02/16/17 (formulary)] Theophylline 24 Hour [Topehr-24] 300 mg PO DAILY cap 02/16/17 Allergies Allergy/AdvReac Type Severity Reaction Status Date / Time aspirin Allergy Rash/Hives Verified 04/22/18 09:29 Iodinated Contrast- Oral and Allergy Dyspnea, Verified 04/22/18 09:29 IV Dye HIVES [Iodinated Contrast Media - IV Dye] CHLORINE Allergy Dyspnea Uncoded 04/22/18 08:33 Review of Systems ROS Statement: Those systems with pertinent positive or pertinent negative responses have been documented in the HPI. ROS Other: All systems not noted in ROS Statement are negative. Past Medical History Past Medical History: Atrial Fibrillation, Asthma, Coronary Artery Disease (CAD) , Chest Pain / Angina, Eye Disorder, Osteoarthritis (OA), Sleep Apnea/CPAP/BIPAP Additional Past Medical History / Comment(s): HX CATARACTS. ONLY HAS LEFT KIDNEY - RT ONE REMOVED "BECAUSE IT WAS DETERIORATING". USES CPAP, HX POLIO LT ARM.. History of Any Multi-Drug Resistant Organisms: None Reported Past Surgical History: Appendectomy, Heart Catheterization With Stent, Hernia Repair, Joint Replacement, Orthopedic Surgery Additional Past Surgical History / Comment(s): RT KIDNEY REMOVED. EXC CATARACTS. LEFT HAND THUMB AND INDEX FINGER SX ON MUSCLE, LEFT KNEE REPLACEMENT , REVERSE TOTAL RT Shoulder. PTCA W/ STENT X2.ALEXANDER, CARDIVERSION Past Anesthesia/Blood Transfusion Reactions: No Reported Reaction Date of Last Stent Placement:: 2010 Past Psychological History: No Psychological Hx Reported Smoking Status: Former smoker - Past Family History Father Family Medical History: CVA/TIA Mother Family Medical History: Cancer Additional Family Medical History / Comment(s): BREAST CANCER General Exam Limitations: no limitations General appearance: alert, in no apparent distress Head exam: Present: atraumatic, normocephalic Eye exam: Present: normal appearance, PERRL ENT exam: Present: normal exam Neck exam: Present: normal inspection, full ROM. Absent: tenderness, meningismus Respiratory exam: Present: normal lung sounds bilaterally. Absent: respiratory distress, wheezes Cardiovascular Exam: Present: regular rate, normal rhythm GI/Abdominal exam: Present: soft. Absent: distended, tenderness Extremities exam: Present: tenderness (Left leg, distal pulses intact, 2+. There is ecchymosis on the lateral aspect of the mid steven and associated swelling. Ecchymosis and swelling on the medial aspect of the steven. There is 1 + pedal edema in the ankle. Right leg within normal limits.), pedal edema, calf tenderness, other Neurological exam: Present: alert, oriented X3 Psychiatric exam: Present: normal affect, normal mood Skin exam: Present: warm, dry Course Vital Signs 04/22/18 08:31 Pulse Rate 85 Respiratory 18 Rate Blood Pressure 127/88 O2 Sat by Pulse 97 Oximetry Medical Decision Making - Medical Decision Making 77 yo male with swelling and bruising in the left leg status post minor trauma. X-rays obtained, negative for acute bony abnormalities, there is some soft tissue swelling. No soft tissue gas. Patient has normal distal pulses. Ultrasound obtained which is negative for DVT. Patient is placed in an Don wrap for compression, will elevate and ice the extremity. Will follow-up with primary care physician for reevaluation. Disposition Clinical Impression: Ecchymosis, Hematoma of lower extremity Disposition: HOME SELF-CARE Instructions: Hematoma (ED), Contusion in Adults (ED) Is patient prescribed a controlled substance at d/c from ED?: No Referrals: Hugo Larose MD [Primary Care Provider] - 1-2 days Time of Disposition: 10:02
--- NOTE | 2018-04-22 09:07 | XR ---
EXAMINATION TYPE: XR tibia fibula LT DATE OF EXAM: 04/22/2018 COMPARISON: NONE HISTORY: Pain TECHNIQUE: Two views are submitted. FINDINGS: The osseous structures are intact. Postsurgical change involving the knee. Vascular calcifications no bacilio. Calcaneal spur noted and there is hypertrophic change and probable arthropathy involving the ct t. Soft tissue edema seen. IMPRESSION: 1. No acute osseous abnormality. 2. Probable arthropathy involving the foot with calcaneal spur and hypertrophic changes. Correlate cl inically.
--- NOTE | 2018-04-22 09:42 | US ---
EXAMINATION TYPE: US venous doppler duplex LE LT DATE OF EXAM: 04/22/2018 9:22 AM COMPARISON: US 2011 CLINICAL HISTORY: Pain. Left lower leg pain and swelling, no previous DVT, patient on blood thinners, exam done portable in ER. SIDE PERFORMED: Left TECHNIQUE: The lower extremity deep venous system is examined utilizing real time linear array sonog jeancarlos with graded compression, doppler sonography and color-flow sonography. VESSELS IMAGED: External Iliac Vein (EIV) Common Femoral Vein Deep Femoral Vein Greater Saphenous Vein * Femoral Vein Popliteal Vein Small Saphenous Vein * Proximal Calf Veins (* superficial vessels) Left Leg: Appears negative for DVT IMPRESSION: 1. No diagnostic evidence of DVT.
[2018-04-22 10:16] VITALS: BP 118/80; PULSE 75; RESP 16; TEMP 97.4
== END 2018-04-22 10:15 | disposition home or self-care (01) ==
LOC: EC 08:21
DX: S90.32XA Contusion of left foot, initial encounter (principal); I48.91 Unspecified atrial fibrillation; I25.119 Atherosclerotic heart disease of native coronary artery with unspecified angina pectoris; J45.909 Unspecified asthma, uncomplicated; M19.90 Unspecified osteoarthritis, unspecified site; G47.30 Sleep apnea, unspecified; Z99.89 Dependence on other enabling machines and devices; Z87.891 Personal history of nicotine dependence; Z79.01 Long term (current) use of anticoagulants; Z79.52 Long term (current) use of systemic steroids; Z79.899 Other long term (current) drug therapy; Z91.041 Radiographic dye allergy status; Z88.6 Allergy status to analgesic agent; Z91.09 Other allergy status, other than to drugs and biological substances; Z95.5 Presence of coronary angioplasty implant and graft; Z96.652 Presence of left artificial knee joint; W01.10XA Fall on same level from slipping, tripping and stumbling with subsequent striking against unspecified object, initial encounter
CPT/HCPCS: 99284

== ENCOUNTER 2019-11-23 08:15 | Emergency (ER) | payer BC, MEDICARE ==
[2019-11-23 08:22] VITALS: RESP 18; TEMP 98.2
[2019-11-23] MEDS ORDERED: HYDROmorphone 0.5 MG/0.5 ML SYRINGE IVP STA (08:42)
[2019-11-23] MEDS ORDERED: cefTRIAXone IN SWFI 1,000 MG/10 ML SYRINGE IVP STA (08:42)
--- NOTE | 2019-11-23 08:48 | ED ---
General Adult HPI - General Chief complaint: Wound/Laceration Stated complaint: R leg injury Time Seen by Provider: 11/23/19 08:15 Source: patient, RN notes reviewed, old records reviewed Mode of arrival: ambulatory Limitations: no limitations - History of Present Illness Initial comments: This a 79-year-old male who presents emergency Department stating that he cut his right lower leg medial aspect on some metal at home. Patient went to [facility] had the area sutured up. Patient states since then his legs become more swollen and more painful and is becoming very difficult to ambulate on. Patient denies any other injury. Patient also is noted the area around it is a little more red than normal and he is concerned that it may be infected. Patient is on Xarelto. Patient has a history of atrial fibrillation and is on chronic steroids for his asthma. - Related Data Home Medications Medication Instructions Recorded Confirmed Celecoxib [CeleBREX] 200 mg PO DAILY 06/24/15 09/23/18 Omeprazole [PriLOSEC] 20 mg PO AC-BRKFST 06/24/15 09/23/18 predniSONE 10 mg PO DAILY 06/24/15 09/23/18 Maxair Inhaler 1 - 2 puff INHALATION RT-DAILY PRN 08/19/15 09/23/18 Rivaroxaban [Xarelto] 20 mg PO DAILY 08/19/15 09/23/18 Flunisolide [Aerospan] 1 puff INHALATION RT-BID PRN 04/25/16 09/23/18 Tamsulosin [Flomax] 0.4 mg PO DAILY 02/12/17 09/23/18 Ascorbic Acid [Vitamin C] 1,000 mg PO DAILY 04/22/18 09/23/18 Magnesium 200 mg PO DAILY 04/22/18 09/23/18 Multivitamins, Thera [Multivitamin 1 tab PO DAILY 04/25/18 09/23/18 (formulary)] hydrOXYzine HCL [Atarax] 25 mg PO TID PRN 09/23/18 09/23/18 Previous Rx's Medication Instructions Recorded Cholecalciferol [Vitamin D3 (25 1,000 unit PO DAILY tab 02/16/17 Mcg = 1000 Iu)] Cyanocobalamin [Vitamin B-12] 500 mcg PO DAILY tab 02/16/17 Diltiazem Cd [Cardizem CD] 180 mg PO DAILY cap 02/16/17 Montelukast [Singulair] 10 mg PO DAILY tab 02/16/17 Theophylline 24 Hour [Topher-24] 300 mg PO DAILY cap 02/16/17 Docusate [Colace] 100 mg PO BID cap 04/30/18 Magnesium Hydroxide [Milk of 2,400 mg PO DAILY PRN ml 04/30/18 Magnesia Concentrate] HYDROcodone/APAP 7.5-325MG [[place] 1 each PO Q6H PRN #12 tab 05/02/18 7.5-325] Cephalexin [Keflex] 500 mg PO Q6HR #40 cap 11/23/19 Allergies Allergy/AdvReac Type Severity Reaction Status Date / Time aspirin Allergy Rash/Hives Verified 11/23/19 08:22 Iodinated Contrast Media Allergy Dyspnea, Verified 11/23/19 08:22 [Iodinated Contrast Media - HIVES IV Dye] CHLORINE Allergy Dyspnea Uncoded 11/23/19 08:22 Review of Systems ROS Statement: Those systems with pertinent positive or pertinent negative responses have been documented in the HPI. ROS Other: All systems not noted in ROS Statement are negative. Past Medical History Past Medical History: Atrial Fibrillation, Asthma, Coronary Artery Disease (CAD), Chest Pain / Angina, Eye Disorder, Osteoarthritis (OA), Sleep Apnea/C PAP/BIPAP Additional Past Medical History / Comment(s): HX CATARACTS. ONLY HAS LEFT KIDNEY- RT ONE REMOVED "BECAUSE IT WAS DETERIORATING". USES CPAP, HX POLIO LT ARM.. History of Any Multi-Drug Resistant Organisms: None Reported Past Surgical History: Appendectomy, Heart Catheterization With Stent, Hernia Repair, Joint Replacement, Orthopedic Surgery Additional Past Surgical History / Comment(s): RT KIDNEY REMOVED. EXC CATARACTS. LEFT HAND THUMB AND INDEX FINGER SX ON MUSCLE, LEFT KNEE REPLACEMENT, REVERSE TOTAL RT Shoulder. PTCA W/ STENT X2.ALEXANDER, CARDIVERSION Past Anesthesia/Blood Transfusion Reactions: No Reported Reaction Additional Past Anesthesia/Blood Transfusion Reaction / Comment(s): "has never received blood" Date of Last Stent Placement:: 2010 Past Psychological History: No Psychological Hx Reported Smoking Status: Former smoker Past Alcohol Use History: Occasional Past Drug Use History: None Reported - Past Family History Father Family Medical History: CVA/TIA Mother Family Medical History: Cancer Additional Family Medical History / Comment(s): BREAST CANCER General Exam - General Exam Comments Initial Comments: GENERAL: Patient is well-developed and well-nourished. Patient is nontoxic and well- hydrated and is in mild distress. ENT: Neck is soft and supple. No significant lymphadenopathy is noted. Oropharynx is clear. Moist mucous membranes. Neck has full range of motion without eliciting any pain. EYES: The sclera were anicteric and conjunctiva were pink and moist. Extraocular movements were intact and pupils were equal round and reactive to light. Eyelids were unremarkable. PULMONARY: Unlabored respirations. Good breath sounds bilaterally. No audible rales rhonchi or wheezing was noted. CARDIOVASCULAR: There is a regular rate and rhythm without any murmurs gallops or rubs. SKIN: Skin is clear with no lesions or rashes and otherwise unremarkable. NEUROLOGIC: Patient is alert and oriented x3. Cranial nerves II through XII are grossly intact. Motor and sensory are also intact. Normal speech, volume and content. Symmetrical smile. MUSCULOSKELETAL: Patient has a laceration to the medial aspect of his right leg which is been sutured up on Sunday. The area around it has some hematoma and mild erythema. It is exquisitely tender. PSYCHIATRIC: Normal psychiatric evaluation. Limitations: no limitations Course Vital Signs 11/23/19 08:17 Temperature 98.2 F Pulse Rate 102 H Respiratory 18 Rate Blood Pressure 124/78 O2 Sat by Pulse 98 Oximetry Medical Decision Making - Lab Data Result diagrams: 11/23/19 09:00 11/23/19 09:00 Lab Results 11/23/19 11/23/19 11/23/19 Range/Units 09:00 09:00 09:00 WBC 8.0 (3.8-10.6) k/uL RBC 4.20 L (4.30-5.90) m/uL Hgb 8.5 L (13.0-17.5) gm/dL Hct 30.7 L (39.0-53.0) % MCV 73.1 L (80.0-100.0) fL MCH 20.2 L (25.0-35.0) pg MCHC 27.7 L (31.0-37.0) g/dL RDW 17.5 H (11.5-15.5) % Plt Count 208 (150-450) k/uL Hypochromasia Marked Anisocytosis Slight Microcytosis Moderate Sodium 137 (137-145) mmol/L Potassium 3.8 (3.5-5.1) mmol/L Chloride 106 (98-107) mmol/L Carbon Dioxide 25 (22-30) mmol/L Anion Gap 6 mmol/L BUN 21 H (9-20) mg/dL Creatinine 0.77 (0.66-1.25) mg/dL Est GFR (CKD-EPI)AfAm >90 (>60 ml/min/1.73 sqM) Est GFR (CKD-EPI)NonAf 87 (>60 ml/min/1.73 sqM) Glucose 101 H (74-99) mg/dL Plasma Lactic Acid Alvaro 0.9 (0.7-2.0) mmol/L Calcium 8.5 (8.4-10.2) mg/dL Total Bilirubin 0.3 (0.2-1.3) mg/dL AST 24 (17-59) U/L ALT 14 (4-49) U/L Alkaline Phosphatase 48 (38-126) U/L Total Protein 5.7 L (6.3-8.2) g/dL Albumin 3.3 L (3.5-5.0) g/dL Disposition Clinical Impression: Infected wound, Bakers cyst Disposition: HOME SELF-CARE Condition: Good Additional Instructions: Patient should follow-up with Dr. Hinkle. Patient should take antibiotics as prescribed. Prescriptions: Cephalexin [Keflex] 500 mg PO Q6HR #40 cap Is patient prescribed a controlled substance at d/c from ED?: No Referrals: Hugo Larose MD [Primary Care Provider] - 1-2 days Time of Disposition: 10:08
[2019-11-23] MEDS ORDERED: FUROSEMIDE 10 MG/ML 4 ML VIAL IV STA (09:01)
[2019-11-23 09:21] LABS: Anisocytosis Slight; HCT 30.7 % (39.0-53.0); HGB 8.5 gm/dL (13.0-17.5); Hypochromasia Marked; MCH 20.2 pg (25.0-35.0); MCHC 27.7 g/dL (31.0-37.0); MCV 73.1 fL (80.0-100.0); Mean Platelet Volume 8.3; Microcytosis Moderate; Platelet Count 208 k/uL (150-450); RDW 17.5 % (11.5-15.5)
[2019-11-23 09:31] LABS: ALT 14 U/L (4-49); AST 24 U/L (17-59); African American GFR (CKD) >90 (>60 ml/min/1.73 sqM); Albumin 3.3 g/dL (3.5-5.0); Alkaline Phosphatase 48 U/L (38-126); Anion Gap 6 mmol/L; Blood Urea Nitrogen 21 mg/dL (9-20); Calcium 8.5 mg/dL (8.4-10.2); Carbon Dioxide 25 mmol/L (22-30); Chloride 106 mmol/L (98-107); Glucose 101 mg/dL (74-99); Non-African American GFR(CKD) 87 (>60 ml/min/1.73 sqM); Potassium 3.8 mmol/L (3.5-5.1); Sodium 137 mmol/L (137-145); Total Bilirubin 0.3 mg/dL (0.2-1.3); Total Protein 5.7 g/dL (6.3-8.2)
--- NOTE | 2019-11-23 09:49 | US ---
EXAMINATION TYPE: US venous doppler duplex LE RT DATE OF EXAM: 11/23/2019 9:33 AM COMPARISON: NONE CLINICAL HISTORY: Swollen leg . Right leg swelling, patient on blood thinners SIDE PERFORMED: Right TECHNIQUE: The lower extremity deep venous system is examined utilizing real time linear array sonog jeancarlos with graded compression, doppler sonography and color-flow sonography. VESSELS IMAGED: External Iliac Vein (EIV) Common Femoral Vein Deep Femoral Vein Greater Saphenous Vein * Femoral Vein Popliteal Vein Small Saphenous Vein * Proximal Calf Veins (* superficial vessels) Right Leg: Appears negative for DVT There is a complex 3.9 cm popliteal fossa mass lesion. IMPRESSION: 1. THIS EXAMINATION IS NEGATIVE FOR DVT WITHIN THE RIGHT LEG. 2. PROMINENT, COMPLEX POPLITEAL MASS ON THE RIGHT.
[2019-11-23 10:11] LABS: Basophils # (M) 0.08 k/uL (0-0.2); Eosinophils # (M) 0.08 k/uL (0-0.7); Monocytes # (M) 0.72 k/uL (0-1.0); Neutrophils # (M) 5.92 k/uL (1.3-7.7); Neutrophils % (M) 74 %; Nucleated Red Blood Cells 0 /100 WBC (0-0); Total Cells Counted 100
[2019-11-23 10:12] LABS: Poikilocytosis (M) Present
--- NOTE | 2019-11-23 10:12 | CONS ---
CONSULTATION Mr. Reina is well known to me from the past. Patient came to the emergency room with history of trauma to the right leg lower extremity. He had a wound on his right lower extremity. Patient came to [facility] last week and stitches were placed to cover the wound. Today he came with swelling of the right lower extremity. There was a flap necrosis noted of the skin and it is a U shaped laceration with flap necrosis. Measurement is 4 x 4 cm. The patient had ultrasound. There is no evidence of DVT. MEDICAL HISTORY: Patient has history of COPD, hypertension. The patient on Xarelto and prednisone. Femorals are palpable. The PT, DP not palpable they are by the Doppler. Patient has marked swelling of the foot and lower extremity with flap necrosis of the wound. PLAN: The patient will go home today. We will we will re-evaluate in the wound clinic at [facility] and most likely patient will need debridement of the flap necrosis and local wound care. There is no sign of infection noted. I will contact the patient. Thank you for this consultation. MMALICIAL / IJN: [id number] /
[2019-11-23 10:39] VITALS: BP 117/70; PULSE 83
== END 2019-11-23 10:39 | disposition home or self-care (01) ==
LOC: EC 08:15
DX: T81.49XA Infection following a procedure, other surgical site, initial encounter (principal); M71.21 Synovial cyst of popliteal space [Baker], right knee; S81.811D Laceration without foreign body, right lower leg, subsequent encounter; I48.91 Unspecified atrial fibrillation; J45.909 Unspecified asthma, uncomplicated; I25.119 Atherosclerotic heart disease of native coronary artery with unspecified angina pectoris; M19.90 Unspecified osteoarthritis, unspecified site; G47.30 Sleep apnea, unspecified; Z79.1 Long term (current) use of non-steroidal anti-inflammatories (NSAID); Z79.01 Long term (current) use of anticoagulants; Z79.51 Long term (current) use of inhaled steroids; Z79.52 Long term (current) use of systemic steroids; Z79.899 Other long term (current) drug therapy; Z87.891 Personal history of nicotine dependence; Z88.6 Allergy status to analgesic agent; Z91.041 Radiographic dye allergy status; Z99.89 Dependence on other enabling machines and devices; Z90.5 Acquired absence of kidney; Z95.5 Presence of coronary angioplasty implant and graft; Z96.652 Presence of left artificial knee joint; X58.XXXA Exposure to other specified factors, initial encounter
CPT/HCPCS: 36415; 80053; 83605; 85025; 87040; 93971; 99284; 96374; 96375 ×2; J1940; J0696; J1170

== ENCOUNTER → 2020-03-12 | Outpatient (CLI) | payer BC, MEDICARE ==
--- NOTE | 2020-03-12 11:22 | CT ---
EXAMINATION TYPE: CT pelvis wo con DATE OF EXAM: 03/12/2020 COMPARISON: None HISTORY: Right inguinal hernia CT DLP: 519.8 mGycm Automated exposure control for dose reduction was used. Helical imaging through the pelvis following oral contrast only FINDINGS: Left inguinal hernia contains fat. Prostate shows calcifications. No free fluid within the pelvis. No bowel obstruction. Diverticular changes associated with the colon. Nonobstructive calculi noted with in the left kidney. Aorta shows atheromatous change. No evident retroperitoneal adenopathy. Degenerat alexander disc changes are present within the lower lumbar spine, there is associated facet arthropathy. Th ere may be spinal stenosis L4-5. IMPRESSION: LEFT INGUINAL HERNIA. DEGENERATIVE DISC DISEASE AND SPINAL STENOSIS, FACET ARTHROPATHY. NONOBSTRUCTIV E LEFT NEPHROLITHIASIS.
== END | disposition home or self-care (01) ==
LOC: RADCTMAIN 07:40
PROVIDERS: ATTEND Surgery
DX: K40.90 Unilateral inguinal hernia, without obstruction or gangrene, not specified as recurrent (principal); N20.0 Calculus of kidney
CPT/HCPCS: 72192

== ENCOUNTER 2020-11-07 09:59 | Observation (INO) | payer BC, MEDICARE ==
[2020-11-07] MEDS ORDERED: ONDANSETRON 4 MG/2 ML VIAL IVP STA (10:26)
[2020-11-07] MEDS ORDERED: HYDROmorphone 1 MG/ML 1 ML SYRINGE IVP STA (10:26)
--- NOTE | 2020-11-07 10:31 | ED ---
General Adult HPI - General Chief complaint: Abdominal Pain Stated complaint: Abd pain Time Seen by Provider: 11/07/20 10:05 Source: patient, family, RN notes reviewed, old records reviewed Mode of arrival: wheelchair Limitations: physical limitation - History of Present Illness Initial comments: This is a 80-year-old male with past medical history significant for atrial fibrillation, VA, asthma, nephrectomy and significant pedal edema. Patient comes in today because he is having abdominal pain. Patient states 2 weeks ago he had similar abdominal pain radiated from both sides of the lower abdomen to the back and then it went away eventually patient states 2 days ago he had another pain very similar and it eventually went away however last night the pain started the front of his abdomen radiating around to his back and it has not gone away since. Patient states she had a bowel movement yesterday today it doesn't appear that he is passing gas. Patient states he believes his abdomen is getting a little bigger than it normally is. Patient denies any nausea vomiting diarrhea. Patient denies any fever chills or cough. Patient denies chest pain difficulty breathing shortness of breath. - Related Data Home Medications Medication Instructions Recorded Confirmed Celecoxib [CeleBREX] 200 mg PO DAILY 06/24/15 11/07/20 Omeprazole [PriLOSEC] 20 mg PO AC-BRKFST 06/24/15 11/07/20 predniSONE 10 mg PO DAILY 06/24/15 11/07/20 Rivaroxaban [Xarelto] 20 mg PO DAILY 08/19/15 11/07/20 Tamsulosin [Flomax] 0.4 mg PO DAILY 02/12/17 11/07/20 Ascorbic Acid [Vitamin C] 1,000 mg PO DAILY 04/22/18 11/07/20 Magnesium 200 mg PO DAILY 04/22/18 11/07/20 Albuterol Sulfate [Proair Hfa] 1 - 2 puff INHALATION RT-Q6H PRN 11/07/20 11/07/20 Beclomethasone Dip 80 Mcg/Puff 2 puff INHALATION RT-DAILY 11/07/20 11/07/20 [Qvar 80 mcg] Budesonide/Glycopyr/Formoterol 2 puff INHALATION RT-DAILY 11/07/20 11/07/20 [Breztri Aerosphere Inhaler] EPINEPHrine (Auto Inject) [Epipen] 0.3 mg IM ONCE PRN 11/07/20 11/07/20 HYDROcodone/APAP 10-325MG [[place] 1 tab PO Q8H PRN 11/07/20 11/07/20 10-325] Previous Rx's Medication Instructions Recorded Cholecalciferol [Vitamin D3 (25 1,000 unit PO DAILY tab 02/16/17 Mcg = 1000 Iu)] Cyanocobalamin [Vitamin B-12] 500 mcg PO DAILY tab 02/16/17 Diltiazem Cd [Cardizem CD] 180 mg PO DAILY cap 02/16/17 Montelukast [Singulair] 10 mg PO DAILY tab 02/16/17 Theophylline 24 Hour [Topher-24] 300 mg PO DAILY cap 02/16/17 Allergies Allergy/AdvReac Type Severity Reaction Status Date / Time aspirin Allergy Rash/Hives Verified 11/07/20 12:24 Iodinated Contrast Media Allergy Dyspnea, Verified 11/07/20 12:24 [Iodinated Contrast Media - HIVES IV Dye] CHLORINE Allergy Dyspnea Uncoded 11/07/20 10:12 Review of Systems ROS Statement: Those systems with pertinent positive or pertinent negative responses have been documented in the HPI. ROS Other: All systems not noted in ROS Statement are negative. Past Medical History Past Medical History: Atrial Fibrillation, Asthma, Coronary Artery Disease (CAD), Chest Pain / Angina, Eye Disorder, Osteoarthritis (OA), Sleep Apnea/CPAP/BIPAP Additional Past Medical History / Comment(s): HX CATARACTS. ONLY HAS LEFT KIDNEY- RT ONE REMOVED "BECAUSE IT WAS DETERIORATING". USES CPAP, HX POLIO LT ARM.. History of Any Multi-Drug Resistant Organisms: MRSA Date of last positivie culture/infection: 12/29/19 MDRO Source:: LEG MRSA Past Surgical History: Ablation, Appendectomy, Heart Catheterization With Stent, Hernia Repair, Joint Replacement, Orthopedic Surgery Additional Past Surgical History / Comment(s): RT KIDNEY REMOVED. EXC CATARACTS. LEFT HAND THUMB AND INDEX FINGER SX ON MUSCLE, LEFT KNEE REPLACEMENT, REVERSE TOTAL RT Shoulder. PTCA W/ STENT X2.ALEXANDER, CARDIVERSION, cervical cage neck, and back vertaflex Past Anesthesia/Blood Transfusion Reactions: No Reported Reaction Additional Past Anesthesia/Blood Transfusion Reaction / Comment(s): "has never received blood" Date of Last Stent Placement:: 2010 Past Psychological History: No Psychological Hx Reported Smoking Status: Never smoker Past Alcohol Use History: Occasional Past Drug Use History: None Reported - Past Family History Father Family Medical History: CVA/TIA Mother Family Medical History: Cancer Additional Family Medical History / Comment(s): BREAST CANCER General Exam - General Exam Comments Initial Comments: GENERAL: Patient is well-developed and well-nourished. Patient is nontoxic and well- hydrated and is in moderate distress. ENT: Neck is soft and supple. No significant lymphadenopathy is noted. Oropharynx is clear. Moist mucous membranes. Neck has full range of motion without eliciting any pain. EYES: The sclera were anicteric and conjunctiva were pink and moist. Extraocular movements were intact and pupils were equal round and reactive to light. Eyelids were unremarkable. PULMONARY: Unlabored respirations. Good breath sounds bilaterally. No audible rales rhonchi or wheezing was noted. CARDIOVASCULAR: There is a regular rate and rhythm without any murmurs gallops or rubs. ABDOMEN: Patient's abdomen is diffusely distended with diffuse tenderness but more tenderness on the left lower quadrant. SKIN: Skin is clear with no lesions or rashes and otherwise unremarkable. NEUROLOGIC: Patient is alert and oriented x3. Cranial nerves II through XII are grossly intact. Motor and sensory are also intact. Normal speech, volume and content. Symmetrical smile. MUSCULOSKELETAL: Normal extremities with adequate strength and full range of motion. Patient has 2+ edema bilaterally LYMPHATICS: No significant lymphadenopathy is noted PSYCHIATRIC: Normal psychiatric evaluation. Limitations: physical limitation Course Vital Signs 11/07/20 10:09 Temperature 98 F Pulse Rate 98 Respiratory 18 Rate Blood Pressure 112/76 O2 Sat by Pulse 95 Oximetry Medical Decision Making - Medical Decision Making EKG shows sinus tachycardia with occasional PAC at a rate of 106 bpm TN interval is 128 QRS 76 QT interval 322 QTC is 427. Patient's EKG shows no ST segment lizandro vation or depression. Patient ambulated but continued to have significant abdominal pain patient did not feel comfortable going home at this time. I spoke with Dr. Foy he agreed to admit the patient admitted the patient I wrote admitting orders. - Lab Data Result diagrams: 11/07/20 10:45 11/07/20 10:45 Lab Results 11/07/20 11/07/20 11/07/20 Range/Units 10:45 10:45 10:45 WBC 12.7 H (3.8-10.6) k/uL RBC 4.68 (4.30-5.90) m/uL Hgb 11.6 L (13.0-17.5) gm/dL Hct 38.7 L (39.0-53.0) % MCV 82.8 (80.0-100.0) fL MCH 24.8 L (25.0-35.0) pg MCHC 30.0 L (31.0-37.0) g/dL RDW 18.5 H (11.5-15.5) % Plt Count 178 (150-450) k/uL MPV 7.9 Neutrophils % 87 % Lymphocytes % 5 % Monocytes % 6 % Eosinophils % 1 % Basophils % 0 % Neutrophils # 11.0 H (1.3-7.7) k/uL Lymphocytes # 0.7 L (1.0-4.8) k/uL Monocytes # 0.8 (0-1.0) k/uL Eosinophils # 0.1 (0-0.7) k/uL Basophils # 0.0 (0-0.2) k/uL Hypochromasia Marked Anisocytosis Slight Microcytosis Slight PT 10.0 (9.0-12.0) sec INR 0.9 (<1.2) APTT 26.3 (22.0-30.0) sec Sodium (137-145) mmol/L Potassium (3.5-5.1) mmol/L Chloride (98-107) mmol/L Carbon Dioxide (22-30) mmol/L Anion Gap mmol/L BUN (9-20) mg/dL Creatinine (0.66-1.25) mg/dL Est GFR (CKD-EPI)AfAm (>60 ml/min/1.73 sqM) Est GFR (CKD-EPI)NonAf (>60 ml/min/1.73 sqM) Glucose (74-99) mg/dL Plasma Lactic Acid Alvaro (0.7-2.0) mmol/L Calcium (8.4-10.2) mg/dL Total Bilirubin (0.2-1.3) mg/dL AST (17-59) U/L ALT (4-49) U/L Alkaline Phosphatase (38-126) U/L Total Protein (6.3-8.2) g/dL Albumin (3.5-5.0) g/dL Amylase (30-110) U/L Lipase (23-300) U/L Urine Color Yellow Urine Appearance Clear (Clear) Urine pH 7.5 (5.0-8.0) Ur Specific [place] 1.024 (1.001-1.035) Urine Protein Trace H (Negative) Urine Glucose (UA) Negative (Negative) Urine Ketones Negative (Negative) Urine Blood Negative (Negative) Urine Nitrite Negative (Negative) Urine Bilirubin Negative (Negative) Urine Urobilinogen <2.0 (<2.0) mg/dL Ur Leukocyte Esterase Negative (Negative) 11/07/20 11/07/20 Range/Units 10:45 10:45 WBC (3.8-10.6) k/uL RBC (4.30-5.90) m/uL Hgb (13.0-17.5) gm/dL Hct (39.0-53.0) % MCV (80.0-100.0) fL MCH (25.0-35.0) pg MCHC (31.0-37.0) g/dL RDW (11.5-15.5) % Plt Count (150-450) k/uL MPV Neutrophils % % Lymphocytes % % Monocytes % % Eosinophils % % Basophils % % Neutrophils # (1.3-7.7) k/uL Lymphocytes # (1.0-4.8) k/uL Monocytes # (0-1.0) k/uL Eosinophils # (0-0.7) k/uL Basophils # (0-0.2) k/uL Hypochromasia Anisocytosis Microcytosis PT (9.0-12.0) sec INR (<1.2) APTT (22.0-30.0) sec Sodium 138 (137-145) mmol/L Potassium 3.9 (3.5-5.1) mmol/L Chloride 103 (98-107) mmol/L Carbon Dioxide 30 (22-30) mmol/L Anion Gap 5 mmol/L BUN 24 H (9-20) mg/dL Creatinine 0.85 (0.66-1.25) mg/dL Est GFR (CKD-EPI)AfAm >90 (>60 ml/min/1.73 sqM) Est GFR (CKD-EPI)NonAf 83 (>60 ml/min/1.73 sqM) Glucose 99 (74-99) mg/dL Plasma Lactic Acid Alvaro 1.0 (0.7-2.0) mmol/L Calcium 8.2 L (8.4-10.2) mg/dL Total Bilirubin 0.6 (0.2-1.3) mg/dL AST 24 (17-59) U/L ALT 18 (4-49) U/L Alkaline Phosphatase 59 (38-126) U/L Total Protein 5.6 L (6.3-8.2) g/dL Albumin 3.2 L (3.5-5.0) g/dL Amylase 52 (30-110) U/L Lipase 44 (23-300) U/L Urine Color Urine Appearance (Clear) Urine pH (5.0-8.0) Ur Specific [place] (1.001-1.035) Urine Protein (Negative) Urine Glucose (UA) (Negative) Urine Ketones (Negative) Urine Blood (Negative) Urine Nitrite (Negative) Urine Bilirubin (Negative) Urine Urobilinogen (<2.0) mg/dL Ur Leukocyte Esterase (Negative) Disposition Clinical Impression: Abdominal pain, Back pain Disposition: ADMITTED IP TO THIS [facility] Instructions (If sedation given, give patient instructions): Abdominal Pain (ED) Referrals: Lorraine Toney DO [Primary Care Provider] - 1-2 days Time of Disposition: 13:14
[2020-11-07 11:22] LABS: Anisocytosis Slight; Basophils % (A) 0 %; Eosinophils # (A) 0.1 k/uL (0-0.7); Eosinophils % (A) 1 %; HCT 38.7 % (39.0-53.0); HGB 11.6 gm/dL (13.0-17.5); Hypochromasia Marked; Lymphocytes # (A) 0.7 k/uL (1.0-4.8); Lymphocytes % (A) 5 %; MCH 24.8 pg (25.0-35.0); MCV 82.8 fL (80.0-100.0); Mean Platelet Volume 7.9; Microcytosis Slight; Monocytes # (A) 0.8 k/uL (0-1.0); Monocytes % (A) 6 %; Neutrophils % (A) 87 %; Platelet Count 178 k/uL (150-450); RBC 4.68 m/uL (4.30-5.90); RDW 18.5 % (11.5-15.5); WBC 12.7 k/uL (3.8-10.6)
[2020-11-07 11:24] LABS: Appearance,Urine Clear (Clear); Bilirubin,Urine Negative (Negative); Blood,Urine Negative (Negative); Color,Urine Yellow; Glucose,Urine (UA) Negative (Negative); Ketones,Urine Negative (Negative); Leukocyte Esterase,Urine Negative (Negative); Nitrite,Urine Negative (Negative); PH, Urine 7.5 (5.0-8.0); Protein,Urine Trace (Negative); Specific Gravity,Urine 1.024 (1.001-1.035); Urobilinogen,Urine <2.0 mg/dL (<2.0)
[2020-11-07 11:32] LABS: INR 0.9 (<1.2); Partial Thromboplastin Time 26.3 sec (22.0-30.0)
[2020-11-07 11:35] LABS: Albumin 3.2 g/dL (3.5-5.0); Amylase 52 U/L (30-110); Anion Gap 5 mmol/L; Carbon Dioxide 30 mmol/L (22-30); Chloride 103 mmol/L (98-107); Glucose 99 mg/dL (74-99); Potassium 3.9 mmol/L (3.5-5.1); Sodium 138 mmol/L (137-145); Total Protein 5.6 g/dL (6.3-8.2)
[2020-11-07 11:36] LABS: ALT 18 U/L (4-49); AST 24 U/L (17-59); African American GFR (CKD) >90 (>60 ml/min/1.73 sqM); Alkaline Phosphatase 59 U/L (38-126); Blood Urea Nitrogen 24 mg/dL (9-20); Calcium 8.2 mg/dL (8.4-10.2); Lipase 44 U/L (23-300); Non-African American GFR(CKD) 83 (>60 ml/min/1.73 sqM); Total Bilirubin 0.6 mg/dL (0.2-1.3)
--- NOTE | 2020-11-07 11:56 | CT ---
EXAMINATION TYPE: CT abdomen pelvis wo con DATE OF EXAM: 11/07/2020 HISTORY: Abdominal pain bilaterally, front to back CT DLP: 844.4 mGycm. Automated Exposure Control for Dose Reduction was Utilized. TECHNIQUE: CT scan of the abdomen and pelvis is performed without oral or IV contrast. History of re nal failure and single kidney. History of IV contrast allergy. COMPARISON: CT pelvis March 12, 2020 FINDINGS: Within the limitations of a non-contrast study, the following observations are made. LUNG BASES: Small to tiny bilateral pleural effusions are partially imaged with associated compressiv e atelectasis and/or consolidation. Cardiomegaly with coronary artery calcification.. LIVER/GB: No significant abnormality is appreciated. PANCREAS: Moderate to severe generalized atrophy. SPLEEN: No significant abnormality is seen. ADRENALS: No significant abnormality is seen. KIDNEYS: Right kidney is congenitally absent. There is increased left-sided retroperitoneal fat or re troperitoneal lipomatosis with local mass effect on adjacent structures. There is cortical thinning w ith scattered thin-walled cysts throughout the left kidney consistent with product of chronic medical renal disease. There are approximately 4-6 scattered left renal calculi including 10 mm elongated ca lculus axial image 73. There is no hydronephrosis or obstructing ureteral calculi however seen. Bladd er poorly distended without intraluminal calculi. BOWEL: Some diverticula in the left and sigmoid colon. Left: Deviated anteriorly due to retroperitone al lipomatosis. Stomach poorly distended and thus suboptimally evaluated. No suspicious small or larg e bowel dilatation. GENITAL ORGANS: Prostate gland not enlarged. Single tiny left-sided pelvic phlebolith. LYMPH NODES: No new greater than 1cm abdominal or pelvic lymph nodes are appreciated. OSSEOUS STRUCTURES: Postsurgical change to the posterior aspect lower lumbar spine. There is grade 1 anterolisthesis L4 on L5 and grade 1 retrolisthesis L5 on S1. Moderate to advanced disc space narrowi ng defect in this phenomenon L2-L3 through the L4-L5 levels. Moderate disc space narrowing and vacuum disc phenomenon L5-S1 level. There is facet arthropathy and ligamentum flavum hypertrophy contributi ng to multilevel spinal canal effacement with most prominent stenosis L4-L5 level axial image 90 rede monstrated. OTHER: Moderate calcified plaque in ectatic abdominal aorta. No greater than 3.0 cm aneurysm. IMPRESSION: Single left kidney with nonobstructing left renal calculi. Evidence of chronic medical re nal disease. 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 Chronic changes without new ac port gamble process identified.
[2020-11-07] MEDS ORDERED: HYDROmorphone 0.5 MG/0.5 ML SYRINGE IVP STA (13:23)
[2020-11-07] MEDS ORDERED: HYDROmorphone 0.5 MG/0.5 ML SYRINGE IVP PRN (13:23)
[2020-11-07] MEDS ORDERED: SODIUM CHLORIDE 0.9% 1,000 ML IV ONE (13:24)
[2020-11-07 15:47] VITALS: RESP 18
[2020-11-07] MEDS ORDERED: ALBUTEROL NEBULIZED 2.5 MG/3 ML INHALATION PRN (16:42)
[2020-11-07] MEDS ORDERED: HYDROcodone/APAP 10-325MG 1 EACH TAB PO PRN (16:42)
[2020-11-07] MEDS ORDERED: MELOXICAM 7.5 MG TAB PO SCH (16:45)
[2020-11-07] MEDS: PANTOPRAZOLE 40 MG TABLET PO SCH (17:21)
[2020-11-07] MEDS: CYANOCOBALAMIN 500 MCG TAB PO SCH (17:21)
[2020-11-07] MEDS: TAMSULOSIN 0.4 MG CAP.ER.24H PO SCH (17:21)
[2020-11-07] MEDS: MONTELUKAST 10 MG TAB PO SCH (17:21)
[2020-11-07] MEDS: MAGNESIUM OXIDE 400 MG TAB PO SCH (17:21)
[2020-11-07] MEDS: ASCORBIC ACID 500 MG TAB PO SCH (17:21)
[2020-11-07] MEDS: CHOLECALCIFEROL 25 MCG (1000 IU) TABLET PO SCH (17:21)
[2020-11-07] MEDS ORDERED: NON FORMULARY DRUG (Epinephrine (Auto Inject) 0.3 MG/0.3 ML Syringe) IM PRN (17:46)
[2020-11-07] MEDS ORDERED: traMADol 50 MG TAB PO PRN (17:46)
--- NOTE | 2020-11-07 17:56 | P.HPIM ---
History of Present Illness Patient was a 71-year-old male came in with compensative for circumferential abdominal pain in the mid abdomen just above the umbilical area and sharp in nature and nonradiating. Patient has significant back issues patient has multi ple surgeries in the back including a mesh in the neck and multiple lower back surgeries. Patient had significant degenerative disease and the CT of the abdomen CT of the abdomen was obtained which showed nephrolithiasis which appears to be incidental finding symptoms are not consistent with kidney stone pain. Patient had extensive history patient has bilateral lower x-ray the edema appears to be secondary to venous insufficiency. Patient had right-sided nephrectomy in the past, does have history of atrial fibrillation and is on anticoagulation. Denied any history of congestive heart failure. Patient had normal bowel movements and denied any diarrhea denied any nausea vomiting. Denied any fever chills. Patient had similar pain 3 weeks ago which resolved after a few hours. Review of Systems REVIEW OF SYSTEMS: CONSTITUTIONAL: No fever, no malaise, no fatigue. HEENT: No recent visual problems or hearing problems. Denied any sore throat. CARDIOVASCULAR: No chest pain, orthopnea, PND, no palpitations, no syncope. PULMONARY: No shortness of breath, no cough, no hemoptysis. GASTROINTESTINAL: As mentioned in HPI NEUROLOGICAL: No headaches, no weakness, no numbness. HEMATOLOGICAL: Denies any bleeding or petechiae. GENITOURINARY: Denies any burning micturition, frequency, or urgency. MUSCULOSKELETAL/RHEUMATOLOGICAL: Denies any joint pain, swelling, or any muscle pain. ENDOCRINE: Denies any polyuria or polydipsia. The rest of the 14-point review of systems is negative. Past Medical History Past Medical History: Atrial Fibrillation, Asthma, Coronary Artery Disease (CAD), Chest Pain / Angina, Eye Disorder, Osteoarthritis (OA), Sleep Apnea/CPAP/BIPAP Additional Past Medical History / Comment(s): HX CATARACTS. ONLY HAS LEFT KIDNEY- RT ONE REMOVED "BECAUSE IT WAS DETERIORATING". USES CPAP, HX POLIO LT ARM.. History of Any Multi-Drug Resistant Organisms: MRSA Date of last positivie culture/infection: 12/29/19 MDRO Source:: LEG MRSA Past Surgical History: Ablation, Appendectomy, Heart Catheterization With Stent, Hernia Repair, Joint Replacement, Orthopedic Surgery Additional Past Surgical History / Comment(s): RT KIDNEY REMOVED. EXC CATARACTS. LEFT HAND THUMB AND INDEX FINGER SX ON MUSCLE, LEFT KNEE REPLACEMENT, REVERSE TOTAL RT Shoulder. PTCA W/ STENT X2.ALEXANDER, CARDIVERSION, cervical cage neck, and back vertaflex Past Anesthesia/Blood Transfusion Reactions: No Reported Reaction Additional Past Anesthesia/Blood Transfusion Reaction / Comment(s): "has never received blood" Date of Last Stent Placement:: 2010 Past Psychological History: No Psychological Hx Reported Additional Psychological History / Comment(s): PT IS INDEPENDANT. LIVES WITH HIS IN 2 STORY HOME THAT HAS 6 [address].. NO PETS. NO OUTSIDE SERVICES. HAS A CPAP MACHINE. Smoking Status: Never smoker Past Alcohol Use History: Occasional Additional Past Alcohol Use History / Comment(s): SMOKED 28 YEARS, <1PPD, QUIT 1986. Past Drug Use History: None Reported - Past Family History Father Family Medical History: CVA/TIA Mother Family Medical History: Cancer Additional Family Medical History / Comment(s): BREAST CANCER Medications and Allergies Home Medications Medication Instructions Recorded Confirmed Type Celecoxib [CeleBREX] 200 mg PO DAILY 06/24/15 11/07/20 History Omeprazole [PriLOSEC] 20 mg PO AC-BRKFST 06/24/15 11/07/20 History predniSONE 10 mg PO DAILY 06/24/15 11/07/20 History Rivaroxaban [Xarelto] 20 mg PO DAILY 08/19/15 11/07/20 History Tamsulosin [Flomax] 0.4 mg PO DAILY 02/12/17 11/07/20 History Cholecalciferol [Vitamin D3 (25 1,000 unit PO DAILY tab 02/16/17 11/07/20 Rx Mcg = 1000 Iu)] Cyanocobalamin [Vitamin B-12] 500 mcg PO DAILY tab 02/16/17 11/07/20 Rx Diltiazem Cd [Cardizem CD] 180 mg PO DAILY cap 02/16/17 11/07/20 Rx Montelukast [Singulair] 10 mg PO DAILY tab 02/16/17 11/07/20 Rx Theophylline 24 Hour [Topher-24] 300 mg PO DAILY cap 02/16/17 11/07/20 Rx Ascorbic Acid [Vitamin C] 1,000 mg PO DAILY 04/22/18 11/07/20 History Magnesium 200 mg PO DAILY 04/22/18 11/07/20 History Albuterol Sulfate [Proair Hfa] 1 - 2 puff INHALATION RT-Q6H PRN 11/07/20 11/07/20 History Beclomethasone Dip 80 Mcg/Puff 2 puff INHALATION RT-DAILY 11/07/20 11/07/20 History [Qvar 80 mcg] Budesonide/Glycopyr/Formoterol 2 puff INHALATION RT-DAILY 11/07/20 11/07/20 History [Breztri Aerosphere Inhaler] EPINEPHrine (Auto Inject) [Epipen] 0.3 mg IM ONCE PRN 11/07/20 11/07/20 History HYDROcodone/APAP 10-325MG [[place] 1 tab PO Q8H PRN 11/07/20 11/07/20 History 10-325] Allergies Allergy/AdvReac Type Severity Reaction Status Date / Time aspirin Allergy Rash/Hives Verified 11/07/20 12:24 Iodinated Contrast Media Allergy Dyspnea, Verified 11/07/20 12:24 [Iodinated Contrast Media - HIVES IV Dye] CHLORINE Allergy Dyspnea Uncoded 11/07/20 10:12 Physical Exam Vitals: Vital Signs Temp Pulse Pulse Resp BP BP Pulse Ox 11/07/20 15:45 97.8 F 76 18 116/65 94 L 11/07/20 15:25 98.2 F 101 H 20 126/78 98 11/07/20 13:30 97.8 F 105 H 20 127/74 96 11/07/20 10:09 98 F 98 18 112/76 95 Intake and Output 11/07/20 11/07/20 11/07/20 06:59 14:59 22:59 Other: Weight 83.915 kg 83.915 kg PHYSICAL EXAMINATION: GENERAL: The patient is alert and oriented x3, not in any acute distress. Well developed, well nourished. HEENT: Pupils are round and equally reacting to light. EOMI. No scleral icterus. No conjunctival pallor. Normocephalic, atraumatic. No pharyngeal erythema. No thyromegaly. CARDIOVASCULAR: S1 and S2 present. No murmurs, rubs, or gallops. PULMONARY: Chest is clear to auscultation, no wheezing or crackles. ABDOMEN: Soft, nontender, nondistended, normoactive bowel sounds. No palpable organomegaly. MUSCULOSKELETAL: Patient has multiple deformities in both hands from rheumatoid arthritis EXTREMITIES: No cyanosis, clubbing, she does have 2+ pitting pedal edema especially extending up to both knees. NEUROLOGICAL: Gross neurological examination did not reveal any new focal deficits. does have weakness in the right arm secondary to cervical degenerative disc disease and cervical neuropathy and patient has poorly on the left arm SKIN: No rashes. Results CBC & Chem 7: 11/07/20 10:45 11/07/20 10:45 Labs: Abnormal Lab Results - Last 24 Hours (Table) 11/07/20 11/07/20 11/07/20 Range/Units 10:45 10:45 10:45 WBC 12.7 H (3.8-10.6) k/uL Hgb 11.6 L (13.0-17.5) gm/dL Hct 38.7 L (39.0-53.0) % MCH 24.8 L (25.0-35.0) pg MCHC 30.0 L (31.0-37.0) g/dL RDW 18.5 H (11.5-15.5) % Neutrophils # 11.0 H (1.3-7.7) k/uL Lymphocytes # 0.7 L (1.0-4.8) k/uL BUN 24 H (9-20) mg/dL Calcium 8.2 L (8.4-10.2) mg/dL Total Protein 5.6 L (6.3-8.2) g/dL Albumin 3.2 L (3.5-5.0) g/dL Urine Protein Trace H (Negative) Thrombosis Risk Factor Assmnt - Choose All That Apply Any of the Below Risk Factors Present?: Yes Each Factor Represents 1 point: Obesity (BMI >25) Other Risk Factors: Yes Each Risk Factor Represents 3 Points: Age 75 years or older Thrombosis Risk Factor Assessment Total Risk Factor Score: 4 Thrombosis Risk Factor Assessment Level: Moderate Risk Assessment and Plan Plan: Abdominal pain: Patient's abdominal pain is mostly circumferential appears to be secondary to thoracolumbar degenerative disc disease, orthopedic surgeon and a patient services specialist will be consulted. Patient will be started on prednisone. Will not use any nonsteroidal anti-inflammatory medications because of one kidney. Patient will be started on tramadol for pain continue with his home [place] dose. Physical therapy occupational therapy will be consulted. -Bilateral pedal edema: Patient will be started on IV Lasix IV fluids will be discontinued patient the pedal edema is secondary to venous insufficiency. -Paroxysmal A. fib patient is presently sinus tachycardia patient will be continued on anticoagulation with is also continue his home rate control medications. -Leukocytosis: Reactive in nature -Chronic back pain and chronic back issues -Incidental finding of nephrolithiasis: I do not believe this is contributing to his abdominal pain will get the opinion of the neurologist. 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 -Coronary artery disease with stents in the past -DVT prophylaxis patient is already on anticoagulation with xarelto.
[2020-11-07] MEDS ORDERED: FUROSEMIDE 40 MG TAB PO STA (20:23)
[2020-11-07] MEDS: predniSONE 10 MG TAB PO SCH (20:43)
[2020-11-07] MEDS: RIVAROXABAN 20 MG TAB PO SCH (20:43)
[2020-11-07] MEDS: DILTIAZEM CD 180 MG CAP.ER.24H PO SCH (20:43)
[2020-11-07] MEDS ORDERED: FUROSEMIDE 10 MG/ML 4 ML VIAL IV SCH (21:00)
[2020-11-08] MEDS ORDERED: NON FORMULARY DRUG (Budesonide/Glycopyr/Formoterol [Breztri Aerosphere Inhaler] 10.7 GM Hf INHALATION SCH (08:00)
[2020-11-08] MEDS ORDERED: FLUTICASONE 110 MCG INHALER INHALATION SCH (08:00)
--- NOTE | 2020-11-08 08:48 | P.GSCN ---
History of Present Illness Consult date: 11/08/20 History of present illness: 80 yo male in [facility] for mid abdominal pain. Had a ct scan that identified left renal stones without obstruction. 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 He has had no flank pain, hematuria or fever. He has not passed any stones. He feels better this am. A ct scan[which I cannot see due to pacs error] shos several small stones and one 1 cm stone without hydronephrosis. The urine doesnt show any blood. Past Medical History Past Medical History: Atrial Fibrillation, Asthma, Coronary Artery Disease (CAD), Chest Pain / Angina, Eye Disorder, Osteoarthritis (OA), Sleep Apnea/CPAP/BIPAP Additional Past Medical History / Comment(s): HX CATARACTS. ONLY HAS LEFT KIDNEY- RT ONE REMOVED "BECAUSE IT WAS DETERIORATING". USES CPAP, HX POLIO LT ARM.. History of Any Multi-Drug Resistant Organisms: MRSA Year Discovered:: 12/29/19 MDRO Source:: LEG MRSA Past Surgical History: Ablation, Appendectomy, Heart Catheterization With Stent, Hernia Repair, Joint Replacement, Orthopedic Surgery Additional Past Surgical History / Comment(s): RT KIDNEY REMOVED. EXC CATARACTS. LEFT HAND THUMB AND INDEX FINGER SX ON MUSCLE, LEFT KNEE REPLACEMENT, REVERSE TOTAL RT Shoulder. PTCA W/ STENT X2.ALEXANDER, CARDIVERSION, cervical cage neck, and back vertaflex Past Anesthesia/Blood Transfusion Reactions: No Reported Reaction Additional Past Anesthesia/Blood Transfusion Reaction / Comm: "has never received blood" Date of Last Stent Placement:: 2010 Past Psychological History: No Psychological Hx Reported Additional Psychological History / Comment(s): PT IS INDEPENDANT. LIVES WITH HIS IN 2 STORY HOME THAT HAS 6 PORCH STEPS.. NO PETS. NO OUTSIDE SERVICES. HAS A CPAP MACHINE. Smoking Status: Never smoker Past Alcohol Use History: Occasional Additional Past Alcohol Use History / Comment(s): SMOKED 28 YEARS, <1PPD, QUIT 1986. Past Drug Use History: None Reported - Past Family History Father Family Medical History: CVA/TIA Mother Family Medical History: Cancer Additional Family Medical History / Comment(s): BREAST CANCER Medications and Allergies Home Medications Medication Instructions Recorded Confirmed Type Celecoxib [CeleBREX] 200 mg PO DAILY 06/24/15 11/07/20 History Omeprazole [P[facility]LOSEC] [facility] 06/24/15 11/07/20 History predniSONE 10 mg PO DAILY 06/24/15 11/07/20 History Rivaroxaban [Xarelto] 20 mg PO DAILY 08/19/15 11/07/20 History Tamsulosin [Flomax] 0.4 mg PO DAILY 02/12/17 11/07/20 History Cholecalciferol [Vitamin D3 (25 1,000 unit PO DAILY tab 02/16/17 11/07/20 Rx Mcg = 1000 Iu)] Cyanocobalamin [Vitamin B-12] 500 mcg PO DAILY tab 02/16/17 11/07/20 Rx Diltiazem Cd [Cardizem CD] 180 mg PO DAILY cap 02/16/17 11/07/20 Rx Montelukast [Singulair] 10 mg PO DAILY tab 02/16/17 11/07/20 Rx Theophylline 24 Hour [Topher-24] 300 mg PO DAILY cap 02/16/17 11/07/20 Rx Ascorbic Acid [Vitamin C] 1,000 mg PO DAILY 04/22/18 11/07/20 History Magnesium 200 mg PO DAILY 04/22/18 11/07/20 History Albuterol Sulfate [Proair Hfa] 1 - 2 puff INHALATION RT-Q6H PRN 11/07/20 11/07/20 History Beclomethasone Dip 80 Mcg/Puff 2 puff INHALATION RT-DAILY 11/07/20 11/07/20 History [Qvar 80 mcg] Budesonide/Glycopyr/Formoterol 2 puff INHALATION RT-DAILY 11/07/20 11/07/20 History [Breztri Aerosphere Inhaler] EPINEPHrine (Auto Inject) [Epipen] 0.3 mg IM ONCE PRN 11/07/20 11/07/20 History HYDROcodone/APAP 10-325MG [[place] 1 tab PO Q8H PRN 11/07/20 11/07/20 History 10-325] Allergies Allergy/AdvReac Type Severity Reaction Status Date / Time aspirin Allergy Rash/Hives Verified 11/07/20 12:24 Iodinated Contrast Media Allergy Dyspnea, Verified 11/07/20 12:24 [Iodinated Contrast Media - HIVES IV Dye] CHLORINE Allergy Dyspnea Uncoded 11/07/20 10:12 Surgical - Exam Vital Signs Temp Pulse Resp BP Pulse Ox 98 F 98 18 112/76 95 11/07/20 10:09 11/07/20 10:09 11/07/20 10:09 11/07/20 10:09 11/07/20 10:09 - General well developed, well nourished, no distress, obese - Eyes PERRL - ENT no hearing loss - Neck trachea midline - Respiratory normal expansion, normal respiratory effort - Cardiovascular Rhythm: regular - Abdomen Abdomen: soft, non tender - Genitourinary normal penis with no external lesions, testicles present - Integumentary no rash, no growths - Neurologic normal coordination - Musculoskeletal normal gait, normal posture - Psychiatric oriented to time, oriented to person, oriented to place, speech is normal, memory intact Results - Labs 11/07/20 10:45 11/07/20 10:45 Abnormal Lab Results - Last 24 Hours (Table) 11/07/20 11/07/20 11/07/20 Range/Units 10:45 10:45 10:45 WBC 12.7 H (3.8-10.6) k/uL Hgb 11.6 L (13.0-17.5) gm/dL Hct 38.7 L (39.0-53.0) % MCH 24.8 L (25.0-35.0) pg MCHC 30.0 L (31.0-37.0) g/dL RDW 18.5 H (11.5-15.5) % Neutrophils # 11.0 H (1.3-7.7) k/uL Lymphocytes # 0.7 L (1.0-4.8) k/uL BUN 24 H (9-20) mg/dL Calcium 8.2 L (8.4-10.2) mg/dL Total Protein 5.6 L (6.3-8.2) g/dL Albumin 3.2 L (3.5-5.0) g/dL Urine Protein Trace H (Negative) Diabetes panel 11/07/20 Range/Units 10:45 Sodium 138 (137-145) mmol/L Potassium 3.9 (3.5-5.1) mmol/L Chloride 103 (98-107) mmol/L Carbon Dioxide 30 (22-30) mmol/L BUN 24 H (9-20) mg/dL Creatinine 0.85 (0.66-1.25) mg/dL Glucose 99 (74-99) mg/dL Calcium 8.2 L (8.4-10.2) mg/dL AST 24 (17-59) U/L ALT 18 (4-49) U/L Alkaline Phosphatase 59 (38-126) U/L Total Protein 5.6 L (6.3-8.2) g/dL Albumin 3.2 L (3.5-5.0) g/dL Calcium panel 11/07/20 Range/Units 10:45 Calcium 8.2 L (8.4-10.2) mg/dL Albumin 3.2 L (3.5-5.0) g/dL Pituitary panel 11/07/20 Range/Units 10:45 Sodium 138 (137-145) mmol/L Potassium 3.9 (3.5-5.1) mmol/L Chloride 103 (98-107) mmol/L Carbon Dioxide 30 (22-30) mmol/L BUN 24 H (9-20) mg/dL Creatinine 0.85 (0.66-1.25) mg/dL Glucose 99 (74-99) mg/dL Calcium 8.2 L (8.4-10.2) mg/dL Adrenal panel 11/07/20 Range/Units 10:45 Sodium 138 (137-145) mmol/L Potassium 3.9 (3.5-5.1) mmol/L Chloride 103 (98-107) mmol/L Carbon Dioxide 30 (22-30) mmol/L BUN 24 H (9-20) mg/dL Creatinine 0.85 (0.66-1.25) mg/dL Glucose 99 (74-99) mg/dL Calcium 8.2 L (8.4-10.2) mg/dL Total Bilirubin 0.6 (0.2-1.3) mg/dL AST 24 (17-59) U/L ALT 18 (4-49) U/L Alkaline Phosphatase 59 (38-126) U/L Total Protein 5.6 L (6.3-8.2) g/dL Albumin 3.2 L (3.5-5.0) g/dL - Imaging CT scan - abdomen: image reviewed CT scan - pelvis: image reviewed Assessment and Plan Assessment: Impression: Left renal stones. Solitary kidney,left. abdominal pain non urologic Plan: observe the stones. I will review the xray and determine whether anything needs to be done with these stones.
[2020-11-08] MEDS: MAGNESIUM OXIDE 400 MG TAB PO SCH (08:53)
[2020-11-08] MEDS: predniSONE 10 MG TAB PO SCH (08:53)
[2020-11-08] MEDS: RIVAROXABAN 20 MG TAB PO SCH (08:53)
[2020-11-08] MEDS: DILTIAZEM CD 180 MG CAP.ER.24H PO SCH (08:53)
[2020-11-08] MEDS: CHOLECALCIFEROL 25 MCG (1000 IU) TABLET PO SCH (08:53)
[2020-11-08] MEDS: ASCORBIC ACID 500 MG TAB PO SCH (08:53)
[2020-11-08] MEDS: MONTELUKAST 10 MG TAB PO SCH (08:53)
[2020-11-08] MEDS: CYANOCOBALAMIN 500 MCG TAB PO SCH (08:54)
[2020-11-08] MEDS: TAMSULOSIN 0.4 MG CAP.ER.24H PO SCH (08:54)
[2020-11-08] MEDS: PANTOPRAZOLE 40 MG TABLET PO SCH (08:54)
[2020-11-08] MEDS ORDERED: FUROSEMIDE 40 MG TAB PO SCH (09:00)
[2020-11-08 11:18] LABS: African American GFR (CKD) 93.8 (60.0-200.0); Anion Gap 7.3 mmol/L (4.00-12.00); Carbon Dioxide 29.7 mmol/L (21.6-31.8); Non-African American GFR(CKD) 80.9 (60.0-200.0); Potassium 3.8 mmol/L (3.5-5.5)
--- NOTE | 2020-11-08 12:59 | P.CNOR ---
History of Present Illness - [facility] Consult date: 11/08/20 Requesting physician: Vasquez Foy Consult reason: low back pain (Chronic low back pain), other (Abdominal pain) History of present illness: Patient is a pleasant 80-year-old male who is seen and examined at bedside with his family present. Patient does have a significant medical history and a significant history in regards to his spine. He states last week he had an e pisode where he had some pain radiating from around his ribs all the way around to the front of his abdomen bilaterally. This sensation when away in a couple hours. He states he began to have his sensation again over the weekend and presented to the emergency department for further evaluation. He states he has a history of a right nephrectomy performed in 1966 or 1967. He states more recently he has had some increased swelling on the right side of his abdomen. He felt his pain may be in this regard and he presented for further evaluation. He states at the bedside today his pain has significantly improved. He would like to be discharged home today. He is unsure of the cause of his pain. His pain is intermittent. He does admit to chronic low back pain. He states he traveled to [place] over the winter. Prior to traveling to [place] he was working through injections through the [facility] in [place], [place]. He states he underwent an ablation while in [place] at his lumbar spine as well. Upon returning to [place], he states in July 2020 he underwent surgical intervention with Dr. Stone (who is located at [place] [id number]) with verteflex placement. He continues to follow with his surgeon regularly. He states he saw his surgeon last week and is scheduled for further evaluation next month. He also has a significant history including polio as a child and has chronic w eakness with his left upper extremity. He states a year and a half ago he was also found to have significant changes at his cervical spine. He underwent surgical intervention performed by Dr. Davidson in which he states he had an anterior cervical fusion followed by posterior cervical fusion 2 days later. He feels he has had significant weakness with his right upper extremity following a surgical intervention. He is right-handed. He continues to follow with Dr. Davidson as well. He states Dr. Davidson is not currently planning for further surgical intervention of his cervical spine. He also has significant swelling in the bilateral lower extremities. He has followed with Dr. Hinkle in vascular surgery. He does use compression in the outpatient setting. He states he was scheduled for further evaluation by another vascular surgeon today but was unable to keep this appointment as he is currently admitted to the hospital. Patient's other medical diagnoses include atrial fibrillation and coronary artery disease. He is on anticoagulation. He was also found to have some small stones within his left kidney. He has been seen by urology who did not feel his current symptoms were specifically related to the stones. Past Medical History Past Medical History: Atrial Fibrillation, Asthma, Coronary Artery Disease (CAD), Chest Pain / Angina, Eye Disorder, Osteoarthritis (OA), Sleep Apnea/CPAP/BIPAP Additional Past Medical History / Comment(s): HX CATARACTS. ONLY HAS LEFT KIDNEY- RT ONE REMOVED "BECAUSE IT WAS DETERIORATING". USES CPAP, HX POLIO LT ARM.. History of Any Multi-Drug Resistant Organisms: MRSA Year Discovered:: 12/29/19 MDRO Source:: LEG MRSA Past Surgical History: Ablation, Appendectomy, Heart Catheterization With Stent, Hernia Repair, Joint Replacement, Orthopedic Surgery Additional Past Surgical History / Comment(s): RT KIDNEY REMOVED. EXC CATARACTS. LEFT HAND THUMB AND INDEX FINGER SX ON MUSCLE, LEFT KNEE REPLACEMENT, REVERSE TOTAL RT Shoulder. PTCA W/ STENT X2.ALEXANDER, CARDIVERSION, cervical cage neck, and back vertaflex Past Anesthesia/Blood Transfusion Reactions: No Reported Reaction Additional Past Anesthesia/Blood Transfusion Reaction / Comm: "has never received blood" Date of Last Stent Placement:: 2010 Past Psychological History: No Psychological Hx Reported Additional Psychological History / Comment(s): PT IS INDEPENDANT. LIVES WITH HIS IN 2 STORY HOME THAT HAS 6 [address] STE[address].. NO PETS. NO OUTSIDE SERVICES. HAS A CPAP MACHINE. Smoking Status: Never smoker Past Alcohol Use History: Occasional Additional Past Alcohol Use History / Comment(s): SMOKED 28 YEARS, <1PPD, QUIT 1986. Past Drug Use History: None Reported - Past Family History Father Family Medical History: CVA/TIA Mother Family Medical History: Cancer Additional Family Medical History / Comment(s): BREAST CANCER Medications and Allergies Home Medications Medication Instructions Recorded Confirmed Type Celecoxib [CeleBREX] 200 mg PO DAILY 06/24/15 11/07/20 History Omeprazole [PriLOSEC] 20 mg PO AC-[facility] 06/24/15 11/07/20 History predniSONE 10 mg PO DAILY 06/24/15 11/07/20 History Rivaroxaban [Xarelto] 20 mg PO DAILY 08/19/15 11/07/20 History Tamsulosin [Flomax] 0.4 mg PO DAILY 02/12/17 11/07/20 History Cholecalciferol [Vitamin D3 (25 1,000 unit PO DAILY tab 02/16/17 11/07/20 Rx Mcg = 1000 Iu)] Cyanocobalamin [Vitamin B-12] 500 mcg PO DAILY tab 02/16/17 11/07/20 Rx Diltiazem Cd [Cardizem CD] 180 mg PO DAILY cap 02/16/17 11/07/20 Rx Montelukast [Singulair] 10 mg PO DAILY tab 02/16/17 11/07/20 Rx Theophylline 24 Hour [Topher-24] 300 mg PO DAILY cap 02/16/17 11/07/20 Rx Ascorbic Acid [Vitamin C] 1,000 mg PO DAILY 04/22/18 11/07/20 History Magnesium 200 mg PO DAILY 04/22/18 11/07/20 History Albuterol Sulfate [Proair Hfa] 1 - 2 puff INHALATION RT-Q6H PRN 11/07/20 11/07/20 History Beclomethasone Dip 80 Mcg/Puff 2 puff INHALATION RT-DAILY 11/07/20 11/07/20 History [Qvar 80 mcg] Budesonide/Glycopyr/Formoterol 2 puff INHALATION RT-DAILY 11/07/20 11/07/20 History [Breztri Aerosphere Inhaler] EPINEPHrine (Auto Inject) [Epipen] 0.3 mg IM ONCE PRN 11/07/20 11/07/20 History HYDROcodone/APAP 10-325MG [[place] 1 tab PO Q8H PRN 11/07/20 11/07/20 History 10-325] Allergies Allergy/AdvReac Type Severity Reaction Status Date / Time aspirin Allergy Rash/Hives Verified 11/07/20 12:24 Iodinated Contrast Media Allergy Dyspnea, Verified 11/07/20 12:24 [Iodinated Contrast Media - HIVES IV Dye] CHLORINE Allergy Dyspnea Uncoded 11/07/20 10:12 Physical Examination Physical exam: Patient is awake, alert, and oriented 3 Vital signs stable Adequate chest excursion with deep inspiration and expiration Examination of thoracic and lumbar spine reveals skin is intact with no abrasions, lacerations, or bruises; no erythema, purulence or signs of infection Evidence of a well-healed incision along the lower lumbar spine No pain on palpation over the thoracic or lumbar spines Dorsiflexion, plantarflexion, and extensor hallucis longus positive sustained bilaterally Lower extremity strength 5/5 bilaterally Evidence of a well-healed incision over the left anterior knee Significant 2+ pitting edema of the bilateral lower extremities from the mid steven through the feet with some skin changes Straight leg test negative bilateral lower extremities Negative Lasegue's test bilaterally No signs or symptoms of DVT; no calf pain Neurovascularly intact Results Pertinent studies: CT of the abdomen and pelvis performed on 11/07/2020 reviewed for orthopedic pur poses: Postoperative changes with hardware intact at the lower lumbar spine which appears to be at L3 4 and L4-5; L4-5 spondylolisthesis, facet arthropathy, and ligamentum flavum hypertrophy resulting in significant spinal canal stenosis; multilevel spinal canal stenosis; significant degenerative disc disease throughout the lumbar spine with multilevel vacuum disc phenomenon; no evidence of vertebral body compression fracture; visualized thoracic spine appears to be in good alignment and good position without significant degenerative disc; significant lumbar degenerative scoliosis; I do not see any evidence of obvious or significant stenosis at the visualized thoracic spine from T7-12 - Labs Labs: Abnormal Lab Results - Last 24 Hours (Table) 11/08/20 Range/Units 06:05 Glucose 125 H (70-110) mg/dL Calcium 8.0 L (8.7-10.3) mg/dL H & H 11/07/20 Range/Units 10:45 Hgb 11.6 L (13.0-17.5) gm/dL Hct 38.7 L (39.0-53.0) % Coagulation 11/07/20 Range/Units 10:45 INR 0.9 (<1.2) Result Diagrams: 11/07/20 10:45 11/08/20 06:05 Assessment and Plan Assessment: Assessment: L4-5 spondylolisthesis L4-5 significant spinal stenosis Lumbar facet arthropathy Lumbar degenerative disc disease Degenerative scoliosis Intermittent thoracic radiculopathy Abdominal pain Chronic low back pain History of lumbar surgery with verteflex placement in July [address] Stone with retained hardware History of anterior cervical fusion and posterior cervical fusion performed [address] Davidson with postoperative right upper extremity weakness History of right nephrectomy in 1966 or 1967 Left renal stones Atrial fibrillation Currently on anticoagulation Significant bilateral lower extremity swelling History of polio with chronic left upper extremity weakness Coronary artery disease (1) Status post lumbar spine operation Current Visit: Yes Status: Acute Code(s): Z98.890 - OTHER SPECIFIED POSTPROCEDURAL STATES SNOMED Code(s): 706266443 (2) Chronic low back pain Current Visit: Yes Status: Acute Code(s): M54.5 - LOW BACK PAIN; G89.29 - OTHER CHRONIC PAIN SNOMED Code(s): 213340918 (3) Spondylolisthesis at L4-L5 level Current Visit: Yes Status: Acute Code(s): M43.16 - SPONDYLOLISTHESIS, LUMBAR REGION SNOMED Code(s): 816050875 (4) Lumbar stenosis Current Visit: Yes Status: Acute Code(s): M48.061 - SPINAL STENOSIS, LUMBAR REGION WITHOUT NEUROGENIC ABIGAIL SNOMED Code(s): 18849725 (5) Lumbar facet arthropathy Current Visit: Yes Status: Acute Code(s): M47.816 - SPONDYLOSIS W/O MYELOPATHY OR RADICULOPATHY, LUMBAR REGION SNOMED Code(s): 768472293 (6) Lumbar degenerative disc disease Current Visit: Yes Status: Acute Code(s): M51.36 - OTHER INTERVERTEBRAL DISC DEGENERATION, LUMBAR REGION SNOMED Code(s): 67651527 (7) Degenerative scoliosis Current Visit: Yes Status: Acute Code(s): M41.80 - OTHER FORMS OF SCOLIOSIS, SITE UNSPECIFIED SNOMED Code(s): 335912616 (8) History of fusion of cervical spine Current Visit: Yes Status: Acute Code(s): Z98.1 - ARTHRODESIS STATUS SNOMED Code(s): 1603186451804 (9) Thoracic radiculopathy Current Visit: Yes Status: Acute Code(s): M54.14 - RADICULOPATHY, THORACIC REGION SNOMED Code(s): 36003860 (10) History of nephrectomy, right Current Visit: Yes Status: Acute Code(s): Z90.5 - ACQUIRED ABSENCE OF KIDNEY SNOMED Code(s): 36614871068264 (11) Atrial fibrillation Current Visit: Yes Status: Acute Code(s): I48.91 - UNSPECIFIED ATRIAL FIBRILLATION SNOMED Code(s): 77829886 (12) Polio Current Visit: Yes Status: Acute Code(s): A80.9 - ACUTE POLIOMYELITIS, UNSPECIFIED SNOMED Code(s): 954560377 (13) Upper extremity weakness Current Visit: Yes Status: Acute Code(s): R29.898 - OTH SYMPTOMS AND SIGNS INVOLVING THE MUSCULOSKELETAL SYSTEM SNOMED Code(s): 390614922 (14) Swelling of both lower extremities Current Visit: Yes Status: Acute Code(s): M79.89 - OTHER SPECIFIED SOFT TISSUE DISORDERS SNOMED Code(s): 243974788 (15) Abdominal pain Current Visit: Yes Status: Acute Code(s): R10.9 - UNSPECIFIED ABDOMINAL PAIN SNOMED Code(s): 63870697 (16) CAD (coronary artery disease) Current Visit: No Status: Acute Code(s): I25.10 - ATHSCL HEART DISEASE OF [place] CORONARY ARTERY W/O ANG PCTRS SNOMED Code(s): 44833468 Plan: Plan: 1. After physical examination of the patient, further discussion with the patient, reviewing of imaging, and obtaining further history, we will currently plan to continue conservative treatment in regards to the patient's thoracolumbar spine. He is experiencing intermittent pain radiating around the ribs and over his abdomen bilaterally. He has had 2 separate episodes of this. The first episode the pain subsided in a couple hours. His current episode his symptoms have significantly improved over 1 day. It is difficult to determine the exact cause of these episodes. It could be related to his abdomen or possibly his thoracic spine. He was concerned about his abdomen as he does have a history of a right nephrectomy [place] in [address] imaging did not show any significant findings in regards to his abdomen. I do not see any evidence of obvious or significant stenosis at the visualized thoracic spine from T7-12. Today he is not experiencing any significant pain radiating around his ribs and abdomen. He is not having any neurological change in his bilateral lower extremities. He has good range of motion of his bilateral lower extremities. He does have a significant surgical history in regards to his s pine. He recently underwent surgical intervention in July [address] Stone in which he had verteflex implants placed at multiple levels. This hardware remains intact. He has followed with Dr. Stone just last week. He is also scheduled for follow-up evaluation next month. He does feel his symptoms have significantly improved and does feel he is ready for discharge home today. He will plan to continue following with Dr. Stone in the outpatient setting in regards to his thoracic and lumbar spine. We discussed that if his symptoms return he could discuss his symptoms with Dr. Stone and they could discuss the possibility of further imaging. Patient feels this is a good plan of care. He feels his symptoms are currently adequately controlled. He also has multiple other medical diagnoses he is trying to manage including significant changes in his cervical spine in which he underwent an anterior cervical fusion and posterior cervical fusion performed by Dr. Davidson 18 mon ths ago. He has had right upper extremity weakness following his cervical surgeries. He is known to have a history of polio with chronic left upper extremity weakness. He does follow with Dr. Davidson in the outpatient setting and is encouraged to continue doing so. He has also been following with Dr. Hinkle in regards to his significant swelling in his bilateral lower extremities. He was scheduled for further evaluation with another vascular surgeon today. We discussed he should continue to follow with vascular surgery in regards to his significant lower extremity swelling. CT abdomen and pelvis did show evidence of left-sided renal stones. He'll plan to follow with urology for further treatment and evaluation. At this time, he is clear for discharge from an orthopedic spine standpoint. Patient currently follows with 2 separate spine surgeons in the outpatient setting and already has a follow-up evaluation scheduled with Dr. Stone following his recent surgical intervention. He will plan to have any other further evaluation in regards to his thoracic and lumbar spines to be managed by Dr. Stone. We will not plan to have the patient follow up with us in the outpatient setting and strongly recommend him continuing with Dr. Stone and Dr. Davidson. Time with Patient: Greater than 30 (Including obtaining history, physical examination, reviewing of imaging, and dictation.)
[2020-11-08 14:50] VITALS: BP 106/72; PULSE 86; TEMP 98.1
--- NOTE | 2020-11-08 15:20 | P.CONS ---
History of Present Illness - Reason for Consult Consult date: 11/08/20 abdominal pain Requesting physician: Vasquez Foy - Chief Complaint Abdominal and back pain - History of Present Illness A pleasant 80-year-old white male who presented to the emergency department yesterday after having abdominal pain that wrapped around from his lower stomach to his back lasting 1-2 days. He states the pain was sharp. Denied any other symptoms of nausea, vomiting, or any signs or symptoms of GI bleed. His past medical history includes atrial fibrillation for which he is on several toe, asthma, coronary artery disease, I disorder, sleep apnea, previous right kidney removal, and chronic back pain. His initial workup he had a CT of the abdomen which showed a single left kidney with nonobstructing left renal calculi. Evidence of chronic medical renal disease. 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 Chronic changes without new acute process identified. Today's labs WBC 12.7, hemoglobin 11.6, hematocrit 30.7, platelets 178. Amylase 52, lipase 44, total bili 0.6, a clamp acetate 59, AST 24, ALT 18. Patient reports previous colonoscopy in 2016 with no significant findings. States his bowel movements have been normal, no history of constipation. Today pain is much better. Orthopedics and neurology on consult. Review of Systems REVIEW OF SYSTEMS: CARDIOPULMONARY: No chest pain or shortness of breath. Gastrointestinal: Abdominal pain. No nausea or vomiting. No hematemesis, coffee-ground emesis. No rectal bleeding, or melena. GENITOURINARY: No dysuria or hematuria. MUSCULOSKELETAL: Reports normal range of motion., Joint pain. Back pain. SKIN: No rashes. No jaundice. ENDOCRINE: No chills, fevers. No excessive weight gain or loss. No polydipsia or polyuria. PSYCHIATRIC: Unremarkable. NEUROLOGY: No change in mental status. Denies dizziness, headache. ENT: Vision unremarkable. CONSTITUTIONAL: No recent weight loss. No fever, chills, night sweats. Past Medical History Past Medical History: Atrial Fibrillation, Asthma, Coronary Artery Disease (CAD), Chest Pain / Angina, Eye Disorder, Osteoarthritis (OA), Sleep Apnea/CPAP/BIPAP Additional Past Medical History / Comment(s): HX CATARACTS. ONLY HAS LEFT KIDNEY- RT ONE REMOVED "BECAUSE IT WAS DETERIORATING". USES CPAP, HX POLIO LT ARM.. History of Any Multi-Drug Resistant Organisms: MRSA Year Discovered:: 12/29/19 MDRO Source:: LEG MRSA Past Surgical History: Ablation, Appendectomy, Heart Catheterization With Stent, Hernia Repair, Joint Replacement, Orthopedic Surgery Additional Past Surgical History / Comment(s): RT KIDNEY REMOVED. EXC CATARACTS. LEFT HAND THUMB AND INDEX FINGER SX ON MUSCLE, LEFT KNEE REPLACEMENT, REVERSE TOTAL RT Shoulder. PTCA W/ STENT X2.ALEXANDER, CARDIVERSION, cervical cage neck, and back vertaflex Past Anesthesia/Blood Transfusion Reactions: No Reported Reaction Additional Past Anesthesia/Blood Transfusion Reaction / Comm: "has never received blood" Date of Last Stent Placement:: 2010 Past Psychological History: No Psychological Hx Reported Additional Psychological History / Comment(s): PT IS INDEPENDANT. LIVES WITH HIS IN 2 STORY HOME THAT HAS 6 [address] STEPS.. NO PETS. NO OUTSIDE SERVICES. HAS A CPAP MACHINE. Smoking Status: Never smoker Past Alcohol Use History: Occasional Additional Past Alcohol Use History / Comment(s): SMOKED 28 YEARS, <1PPD, QUIT 1986. Past Drug Use History: None Reported - Past Family History Father Family Medical History: CVA/TIA Mother Family Medical History: Cancer Additional Family Medical History / Comment(s): BREAST CANCER Medications and Allergies Home Medications Medication Instructions Recorded Confirmed Type Omeprazole [PriLOSEC] 20 mg PO AC-BRKFST 06/24/15 11/07/20 History predniSONE 10 mg PO DAILY 06/24/15 11/07/20 History Rivaroxaban [Xarelto] 20 mg PO DAILY 08/19/15 11/07/20 History Tamsulosin [Flomax] 0.4 mg PO DAILY 02/12/17 11/07/20 History Cholecalciferol [Vitamin D3 (25 1,000 unit PO DAILY tab 02/16/17 11/07/20 Rx Mcg = 1000 Iu)] Cyanocobalamin [Vitamin B-12] 500 mcg PO DAILY tab 02/16/17 11/07/20 Rx Diltiazem Cd [Cardizem CD] 180 mg PO DAILY cap 02/16/17 11/07/20 Rx Montelukast [Singulair] 10 mg PO DAILY tab 02/16/17 11/07/20 Rx Theophylline 24 Hour [Topher-24] 300 mg PO DAILY cap 02/16/17 11/07/20 Rx Ascorbic Acid [Vitamin C] 1,000 mg PO DAILY 04/22/18 11/07/20 History Magnesium 200 mg PO DAILY 04/22/18 11/07/20 History Albuterol Sulfate [Proair Hfa] 1 - 2 puff INHALATION RT-Q6H PRN 11/07/20 11/07/20 History Beclomethasone Dip 80 Mcg/Puff 2 puff INHALATION RT-DAILY 11/07/20 11/07/20 History [Qvar 80 mcg] Budesonide/Glycopyr/Formoterol 2 puff INHALATION RT-DAILY 11/07/20 11/07/20 History [Breztri Aerosphere Inhaler] EPINEPHrine (Auto Inject) [Epipen] 0.3 mg IM ONCE PRN 11/07/20 11/07/20 History HYDROcodone/APAP 10-325MG [[place] 1 tab PO Q8H PRN 11/07/20 11/07/20 History 10-325] Furosemide [Lasix] 40 mg PO BID@0900,1600 4 Days #8 11/08/20 Rx tab predniSONE 10 mg PO BID 5 Days #10 tab 11/08/20 Rx Allergies Allergy/AdvReac Type Severity Reaction Status Date / Time aspirin Allergy Rash/Hives Verified 11/07/20 12:24 Iodinated Contrast Media Allergy Dyspnea, Verified 11/07/20 12:24 [Iodinated Contrast Media - HIVES IV Dye] CHLORINE Allergy Dyspnea Uncoded 11/07/20 10:12 Physical Exam Vitals: Vital Signs Temp Pulse Pulse Pulse Resp BP BP 11/08/20 07:19 76 69 18 11/08/20 07:00 97.4 F L 83 16 99/66 11/08/20 02:00 76 69 18 11/08/20 01:19 97.9 F 82 22 104/61 11/07/20 20:00 76 69 18 11/07/20 18:48 98.8 F 69 18 101/66 11/07/20 15:45 97.8 F 76 18 116/65 11/07/20 15:25 98.2 F 101 H 20 126/78 11/07/20 13:30 97.8 F 105 H 20 127/74 11/07/20 10:09 98 F 98 18 112/76 Pulse Ox 11/08/20 07:19 11/08/20 07:00 95 11/08/20 02:00 11/08/20 01:19 95 11/07/20 20:00 11/07/20 18:48 91 L 11/07/20 15:45 94 L 11/07/20 15:25 98 11/07/20 13:30 96 11/07/20 10:09 95 Intake and Output 11/07/20 11/08/20 11/08/20 22:59 06:59 14:59 Intake Total 200 Balance 200 Intake: Oral 200 Other: Voiding Method Toilet Toilet Toilet # Voids 1 2 Weight 83.915 kg General appearance: The patient is alert, oriented, appears in no acute distress. HET: Head is normocephalic and atraumatic. Conjunctiva pink. Sclera anicteric. Oropharynx is clear without lesions. Neck: Supple without lymphadenopathy. Trachea midline. Heart: S1 S2. Regular rate and rhythm. Lungs: Clear to auscultation. Abdomen: Soft, nontender, nondistended with bowel sounds. Guarding or rigidity. Extremities: Normal skin color and turgor. No cyanosis, rash, ulceration, clubbing, or edema. Radial and pedal pulses are 2/4 bilaterally. Neurological: No focal deficits. Alert and Oriented 3. Results CBC & Chem 7: 11/07/20 10:45 11/08/20 06:05 Labs: Abnormal Lab Results - Last 24 Hours (Table) 11/07/20 11/07/20 11/07/20 Range/Units 10:45 10:45 10:45 WBC 12.7 H (3.8-10.6) k/uL Hgb 11.6 L (13.0-17.5) gm/dL Hct 38.7 L (39.0-53.0) % MCH 24.8 L (25.0-35.0) pg MCHC 30.0 L (31.0-37.0) g/dL RDW 18.5 H (11.5-15.5) % Neutrophils # 11.0 H (1.3-7.7) k/uL Lymphocytes # 0.7 L (1.0-4.8) k/uL BUN 24 H (9-20) mg/dL Calcium 8.2 L (8.4-10.2) mg/dL Total Protein 5.6 L (6.3-8.2) g/dL Albumin 3.2 L (3.5-5.0) g/dL Urine Protein Trace H (Negative) CT scan - abdomen: report reviewed (Single left kidney with nonobstructing left renal calculi. Evidence of chronic medical renal disease. Left-sided lipomatous atrophia with local mass effect. Chronic changes without acute process identified.) Assessment and Plan (1) Abdominal pain Narrative/Plan: This is a pleasant 80-year-old male patient who presented to the emergency department with complaints of severe abdominal pain started 2 days ago and wrapped around his back. He has a history of chronic back pain as well as previous right nephrectomy. He had a CT of the abdomen which showed single left kidney with nonobstructing left renal calculi. Evidence of chronic medical renal disease. 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 Stat es his abdominal pain was not associated with any nausea or vomiting. He denies any changes in his bowel movements, states last bowel movement was Sunday. He has no history of constipation. Last colonoscopy was in 2015 which he states was normal. His pain is significantly better today. Urology has seen patient for renal calculi, conservative management at this time. Due to the fact that the patient has no further abdominal pain, or any other GI symptoms no further workup is warranted at this time. Discussed with patient in pain rated turns patient follow-up with gastroenterology outpatient. Current Visit: Yes Status: Acute Code(s): R10.9 - UNSPECIFIED ABDOMINAL PAIN SNOMED Code(s): 02225443 (2) Renal calculi Current Visit: Yes Status: Acute Code(s): N20.0 - CALCULUS OF KIDNEY SNOMED Code(s): 57885354 (3) Back pain Current Visit: Yes Status: Acute Code(s): M54.9 - DORSALGIA, UNSPECIFIED SNOMED Code(s): 437932082 (4) History of nephrectomy, right Current Visit: Yes Status: Acute Code(s): Z90.5 - ACQUIRED ABSENCE OF KIDNEY SNOMED Code(s): 63292935770244 Plan: 1. CT of the abdomen and pelvis reviewed 2. Continue current medical management 3. Protonix 40 mg daily 4. No plans on endoscopic evaluation at this time, patient's symptoms have resolved Patient may be discharged home from a gastroenterology standpoint, discussed with patient if symptoms return he may call for outpatient follow-up. Thank you for this consultation, patient is cleared for discharge from gastroenterology Dr. Heber Anderson I agree with the dictator's note, documented as a scribe by Janie Bell.
--- NOTE | 2020-11-09 13:08 | P.DS ---
Providers Date of admission: 11/07/20 13:17 Expected date of discharge: 11/09/20 Attending physician: Vasquez Foy Consults: 11/07/20 13:24 Consult Physician Urgent Consulting Provider: Sree Bae Consult Reason/Comments: Abdominal pain Do you want consulting provider notified?: Yes 11/07/20 17:45 Consult Physician Routine Consulting Provider: Valencia Luz Consult Reason/Comments: Back pain Do you want consulting provider notified?: Yes 11/07/20 17:51 Consult Physician Routine Consulting Provider: Jason Roa Consult Reason/Comments: Nephrolithiasis Do you want consulting provider notified?: Yes Primary care physician: Lorraine Bhakta Hospital Course: Final diagnosis -Abdominal pain: Patient's abdominal pain is mostly circumferential appears to b e secondary to thoracolumbar degenerative disc disease -Bilateral pedal edema is secondary to venous insufficiency -Paroxysmal A. 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 -Coronary artery disease with stents in the past -DVT prophylaxis Discharge disposition Patient is being discharged in a stable condition with guarded prognosis to home. Patient will follow-up with Dr. Bhakta in the outpatient setting upon discharge. Patient is to follow-up with his orthopedic surgeon along with pain management in the outpatient setting. Total time taken is greater than 35 minutes. Hospital course Patient was a 71-year-old male came in with compensative for circumferential abdominal pain in the mid abdomen just above the umbilical area and sharp in nature and nonradiating. Patient has significant back issues patient has multiple surgeries in the back including a mesh in the neck and multiple lower back surgeries. Patient had significant degenerative disease and the CT of the abdomen CT of the abdomen was obtained which showed nephrolithiasis which appears to be incidental finding symptoms are not consistent with kidney stone pain. Patient had extensive history patient has bilateral lower x-ray the edema appears to be secondary to venous insufficiency. Patient had right-sided nephrectomy in the past, does have history of atrial fibrillation and is on anticoagulation. Denied any history of congestive heart failure. Patient had normal bowel movements and denied any diarrhea denied any nausea vomiting. Denied any fever chills. Patient had similar pain 3 weeks ago which resolved after a few hours. 11/08/2020 Patient was seen and evaluated by urology recommending outpatient follow-up and also evaluated by orthopedics and recommending continuing to follow-up with Dr. Stone along with Dr. Siu his orthopedic specialists in the outpatient setting along with continuing with his pain management doctor. Patient states his abdominal pain has resolved and was evaluated by urology recommending outpatient follow-up and close monitoring of kidney stones and on CT showing nonobstructive of the solitary left kidney. Currently no reports of chest pain, shortness of breath, or palpitations. Patient is afebrile. No reports of nausea or vomiting and patient is tolerating diet. Patient will be discharged home today. On exam vital signs are stable. Cardio S1, S2 are muffled. Respiratory system shows diminished breath sounds at the bases with no wheezing or rhonchi noted. Abdomen is soft and obese, and nontender. Nervous system shows no focal deficits. Please refer to medication reconciliation sheet for a list of medications. Patient Condition at Discharge: Stable Plan - Discharge Summary Discharge Rx Participant: Yes New Discharge Prescriptions: New Furosemide [Lasix] 40 mg PO BID@0900,1600 4 Days #8 tab predniSONE 10 mg PO BID 5 Days #10 tab Continue Omeprazole [PriLOSEC] 20 mg PO AC-BRKFST predniSONE 10 mg PO DAILY Rivaroxaban [Xarelto] 20 mg PO DAILY Tamsulosin [Flomax] 0.4 mg PO DAILY Cholecalciferol [Vitamin D3 (25 Mcg = 1000 Iu)] 1,000 unit PO DAILY tab Cyanocobalamin [Vitamin B-12] 500 mcg PO DAILY tab Diltiazem Cd [Cardizem CD] 180 mg PO DAILY cap Montelukast [Singulair] 10 mg PO DAILY tab Theophylline 24 Hour [Topher-24] 300 mg PO DAILY cap Ascorbic Acid [Vitamin C] 1,000 mg PO DAILY Magnesium 200 mg PO DAILY EPINEPHrine (Auto Inject) [Epipen] 0.3 mg IM ONCE PRN PRN Reason: Anaphylaxis Beclomethasone Dip 80 Mcg/Puff [Qvar 80 mcg] 2 puff INHALATION RT-DAILY HYDROcodone/APAP 10-325MG [[place] 10-325] 1 tab PO Q8H PRN PRN Reason: Pain Albuterol Sulfate [Proair Hfa] 1 - 2 puff INHALATION RT-Q6H PRN PRN Reason: Shortness Of Breath Budesonide/Glycopyr/Formoterol [Breztri Aerosphere Inhaler] 2 puff INHALATION RT-DAILY Discontinued Celecoxib [CeleBREX] 200 mg PO DAILY Discharge Medication List Omeprazole [PriLOSEC] 20 mg PO AC-BRKFST 06/24/15 [History] predniSONE 10 mg PO DAILY 06/24/15 [History] Rivaroxaban [Xarelto] 20 mg PO DAILY 08/19/15 [History] Tamsulosin [Flomax] 0.4 mg PO DAILY 02/12/17 [History] Cholecalciferol [Vitamin D3 (25 Mcg = 1000 Iu)] 1,000 unit PO DAILY tab 02/16/17 [Rx] Cyanocobalamin [Vitamin B-12] 500 mcg PO DAILY tab 02/16/17 [Rx] Diltiazem Cd [Cardizem CD] 180 mg PO DAILY cap 02/16/17 [Rx] Montelukast [Singulair] 10 mg PO DAILY tab 02/16/17 [Rx] Theophylline 24 Hour [Topher-24] 300 mg PO DAILY cap 02/16/17 [Rx] Ascorbic Acid [Vitamin C] 1,000 mg PO DAILY 04/22/18 [History] Magnesium 200 mg PO DAILY 04/22/18 [History] Albuterol Sulfate [Proair Hfa] 1 - 2 puff INHALATION RT-Q6H PRN 11/07/20 [History] Beclomethasone Dip 80 Mcg/Puff [Qvar 80 mcg] 2 puff INHALATION RT-DAILY 11/07/20 [History] Budesonide/Glycopyr/Formoterol [Breztri Aerosphere Inhaler] 2 puff INHALATION RT-DAILY 11/07/20 [History] EPINEPHrine (Auto Inject) [Epipen] 0.3 mg IM ONCE PRN 11/07/20 [History] HYDROcodone/APAP 10-325MG [[place] 10-325] 1 tab PO Q8H PRN 11/07/20 [History] Furosemide [Lasix] 40 mg PO BID@0900,1600 4 Days #8 tab 11/08/20 [Rx] predniSONE 10 mg PO BID 5 Days #10 tab 11/08/20 [Rx] Follow up Appointment(s)/Referral(s): Lorraine Bhakta DO [Primary Care Provider] - 1-2 days Ambulatory/Diagnostic Orders: Complete Blood Count w/diff [LAB.AMB] Time Frame: 3 Days, Location: None Selected Patient Instructions/Handouts: Abdominal Pain (ED) Activity/Diet/Wound Care/Special Instructions: Activity Limited until follow-up Follow-up with primary care provider upon discharge Follow up with her orthopedic surgeon outpatient Follow-up with pain management outpatient Call and Reschedule vascular surgery and follow up this week continue with Lasix twice daily for the next 4 days and elevate lower extremities rest Continue With Don wraps compression stockings to lower extremities from the toes up to the knees and elevate while at rest Continue with prednisone 10 mg twice daily for the next 5 days and then resume 10 mg daily Recommend repeat labs in 2-3 days to monitor kidney functions and white blood count Follow-up with urology outpatient Discharge Disposition: HOME SELF-CARE
== END 2020-11-08 15:16 | disposition home or self-care (01) ==
LOC: EC 09:59 → 6NMEDSUR 13:17
PROVIDERS: ADMIT Internal Medicine; ATTEND Internal Medicine
DX: R10.9 Unspecified abdominal pain (principal); N20.0 Calculus of kidney; I87.2 Venous insufficiency (chronic) (peripheral); M51.06 Intervertebral disc disorders with myelopathy, lumbar region; M51.16 Intervertebral disc disorders with radiculopathy, lumbar region; M50.00 Cervical disc disorder with myelopathy, unspecified cervical region; M48.061 Spinal stenosis, lumbar region without neurogenic claudication; R00.0 Tachycardia, unspecified; I48.0 Paroxysmal atrial fibrillation; A80.9 Acute poliomyelitis, unspecified; Z20.822 Contact with and (suspected) exposure to COVID-19; I25.10 Atherosclerotic heart disease of native coronary artery without angina pectoris; M41.80 Other forms of scoliosis, site unspecified; M47.26 Other spondylosis with radiculopathy, lumbar region; N18.9 Chronic kidney disease, unspecified; G89.29 Other chronic pain; M54.5 Low back pain; M19.90 Unspecified osteoarthritis, unspecified site; M43.16 Spondylolisthesis, lumbar region; Z91.048 Other nonmedicinal substance allergy status; G47.30 Sleep apnea, unspecified; M47.16 Other spondylosis with myelopathy, lumbar region; G62.9 Polyneuropathy, unspecified; J45.909 Unspecified asthma, uncomplicated; Z79.1 Long term (current) use of non-steroidal anti-inflammatories (NSAID); Z79.899 Other long term (current) drug therapy; Z79.01 Long term (current) use of anticoagulants; Z91.041 Radiographic dye allergy status; Z88.6 Allergy status to analgesic agent; Z90.5 Acquired absence of kidney; Z95.5 Presence of coronary angioplasty implant and graft; Z98.49 Cataract extraction status, unspecified eye; Z16.24 Resistance to multiple antibiotics; Z96.652 Presence of left artificial knee joint; Z98.1 Arthrodesis status; Z86.12 Personal history of poliomyelitis; Z80.3 Family history of malignant neoplasm of breast; Z82.3 Family history of stroke
CPT/HCPCS: 96361 ×3; 96376; 96374; 96375; 99285; 36415; 94640 ×2; 93005; 97161; 97530; 97166; 80053; 80048; 82150; 83605; 83690; 85025; 85610; 85730; 81003; 87635; 74176; G0378 ×2; J2405; J1170 ×2; J7512 ×2

== ENCOUNTER 2020-11-17 08:51 | Inpatient (IN) | payer MEDICARE ==
[2020-11-17] MEDS ORDERED: HYDROmorphone 1 MG/ML 1 ML SYRINGE IVP STA (09:28)
--- NOTE | 2020-11-17 10:26 | ED ---
General Adult HPI - General Chief complaint: Extremity Problem,Nontraumatic Stated complaint: leg pain & swelling Time Seen by Provider: 11/17/20 08:55 Source: patient, family, RN notes reviewed, old records reviewed Mode of arrival: wheelchair Limitations: no limitations - History of Present Illness Initial comments: This is a 80-year-old male who presents emergency Department with a past medical history significant for atrial fibrillation chronic back pain and chronic leg pain with pedal edema. Patient comes in today because he states his left leg is becoming much more painful to the point where he can't stand on it and it is becoming more reddened.. Patient also states the leg is very warm. Patient states the redness started at the foot and now is progressed up to the posterior thigh. Patient states he has been a little bit short of breath patient believes it is secondary to pain. Patient states he took 2 [place] was 418 and he had a f ever it might be down because of the Tylenol. Patient denies any abdominal pain. Patient denies any chest pain. Patient denies any known fever or chills - Related Data Home Medications Medication Instructions Recorded Confirmed Omeprazole [PriLOSEC] 20 mg PO AC-BRKFST 06/24/15 11/17/20 predniSONE 10 mg PO DAILY 06/24/15 11/17/20 Rivaroxaban [Xarelto] 20 mg PO DAILY 08/19/15 11/17/20 Tamsulosin [Flomax] 0.4 mg PO DAILY 02/12/17 11/17/20 Ascorbic Acid [Vitamin C] 1,000 mg PO DAILY 04/22/18 11/17/20 Magnesium 200 mg PO DAILY 04/22/18 11/17/20 Albuterol Sulfate [Proair Hfa] 1 - 2 puff INHALATION RT-Q6H PRN 11/07/20 11/17/20 Beclomethasone Dip 80 Mcg/Puff 2 puff INHALATION RT-DAILY 11/07/20 11/17/20 [Qvar 80 mcg] Budesonide/Glycopyr/Formoterol 2 puff INHALATION RT-DAILY 11/07/20 11/17/20 [Breztri Aerosphere Inhaler] EPINEPHrine (Auto Inject) [Epipen] 0.3 mg IM ONCE PRN 11/07/20 11/17/20 HYDROcodone/APAP 10-325MG [[place] 1 tab PO Q8H PRN 11/07/20 11/17/20 10-325] Clotrimazole Chato [Mycelex 10 mg MUCOUS MEM 5XD 11/17/20 11/17/20 Chato] Previous Rx's Medication Instructions Recorded Cholecalciferol [Vitamin D3 (25 1,000 unit PO DAILY tab 02/16/17 Mcg = 1000 Iu)] Cyanocobalamin [Vitamin B-12] 500 mcg PO DAILY tab 02/16/17 Diltiazem Cd [Cardizem CD] 180 mg PO DAILY cap 02/16/17 Montelukast [Singulair] 10 mg PO DAILY tab 02/16/17 Theophylline 24 Hour [Topher-24] 300 mg PO DAILY cap 02/16/17 Furosemide [Lasix] 40 mg PO BID@0900,1600 4 Days #8 11/08/20 tab Allergies Allergy/AdvReac Type Severity Reaction Status Date / Time aspirin Allergy Rash/Hives Verified 11/17/20 09:51 Iodinated Contrast Media Allergy Dyspnea, Verified 11/17/20 09:51 [Iodinated Contrast Media - HIVES IV Dye] CHLORINE Allergy Dyspnea Uncoded 11/17/20 08:57 Review of Systems ROS Statement: Those systems with pertinent positive or pertinent negative responses have been documented in the HPI. ROS Other: All systems not noted in ROS Statement are negative. Past Medical History Past Medical History: Atrial Fibrillation, Asthma, Coronary Artery Disease (CAD), Chest Pain / Angina, Eye Disorder, Osteoarthritis (OA), Sleep Apnea/CPAP/BIPAP Additional Past Medical History / Comment(s): HX CATARACTS. ONLY HAS LEFT KIDNEY- RT ONE REMOVED "BECAUSE IT WAS DETERIORATING". USES CPAP, HX POLIO LT A RM.. History of Any Multi-Drug Resistant Organisms: MRSA Date of last positivie culture/infection: 12/29/19 MDRO Source:: LEG MRSA Past Surgical History: Ablation, Appendectomy, Heart Catheterization With Stent, Hernia Repair, Joint Replacement, Orthopedic Surgery Additional Past Surgical History / Comment(s): RT KIDNEY REMOVED. EXC CATARACTS. LEFT HAND THUMB AND INDEX FINGER SX ON MUSCLE, LEFT KNEE REPLACEMENT, REVERSE TOTAL RT Shoulder. PTCA W/ STENT X2.LAEXANDER, CARDIVERSION, cervical cage neck, and back vertaflex Past Anesthesia/Blood Transfusion Reactions: No Reported Reaction Additional Past Anesthesia/Blood Transfusion Reaction / Comment(s): "has never received blood" Date of Last Stent Placement:: 2010 Past Psychological History: No Psychological Hx Reported Smoking Status: Never smoker Past Alcohol Use History: Occasional Past Drug Use History: None Reported - Past Family History Father Family Medical History: CVA/TIA Mother Family Medical History: Cancer Additional Family Medical History / Comment(s): BREAST CANCER General Exam - General Exam Comments Initial Comments: GENERAL: Patient is well-developed and well-nourished. Patient is nontoxic and well- hydrated and is in moderate distress. ENT: Neck is soft and supple. No significant lymphadenopathy is noted. Oropharynx is clear. Moist mucous membranes. Neck has full range of motion without eliciting any pain. EYES: The sclera were anicteric and conjunctiva were pink and moist. Extraocular movements were intact and pupils were equal round and reactive to light. Eyelids were unremarkable. PULMONARY: Unlabored respirations. Good breath sounds bilaterally. No audible rales rhonchi or wheezing was noted. CARDIOVASCULAR: Patient is tachycardic and has an irregular heartbeat ABDOMEN: Soft and nontender with normal bowel sounds. SKIN: Skin is clear with no lesions or rashes and otherwise unremarkable. NEUROLOGIC: Patient is alert and oriented x3. Cranial nerves II through XII are grossly intact. Motor and sensory are also intact. Normal speech, volume and content. Symmetrical smile. MUSCULOSKELETAL: Both legs have 2+ edema left is greater than right left leg has erythema from the foot all the way up to the posterior thigh and is extremely tender to palpation LYMPHATICS: No significant lymphadenopathy is noted PSYCHIATRIC: Normal psychiatric evaluation. Limitations: no limitations Course Vital Signs 11/17/20 11/17/20 11/17/20 08:51 09:27 09:33 Temperature 97.5 F L 98.5 F Pulse Rate 128 H 122 H Respiratory 20 18 Rate Blood Pressure 119/73 107/72 O2 Sat by Pulse 94 L 93 L Oximetry 11/17/20 10:07 Temperature Pulse Rate 110 H Respiratory 18 Rate Blood Pressure 99/75 O2 Sat by Pulse 96 Oximetry Medical Decision Making - Medical Decision Making EKG shows atrial fibrillation with rapid ventricular response at 111 bpm QRS is 80 QT interval 316 QTC is 429. Patient's EKG shows no ST segment elevation or depression. Patient has an elevated white count and lactic acid along with erythema and warmth the left leg patient will be diagnosed with cellulitis and started the patient on antibiotics. I spoke with sheet agreed to admit the patient admitted the patient wrote admitting orders. Patient also had some decrease in his hemoglobin that will be monitored. I wrote admitting orders I consulted Dr. Hinkle - Lab Data Result diagrams: 11/17/20 09:35 11/17/20 09:35 Lab Results 11/17/20 11/17/20 11/17/20 Range/Units 09:35 09:35 09:35 WBC 28.8 H (3.8-10.6) k/uL RBC 3.89 L (4.30-5.90) m/uL Hgb 10.0 L D (13.0-17.5) gm/dL Hct 31.3 L (39.0-53.0) % MCV 80.5 (80.0-100.0) fL MCH 25.7 (25.0-35.0) pg MCHC 32.0 (31.0-37.0) g/dL RDW 17.7 H (11.5-15.5) % Plt Count 280 (150-450) k/uL MPV 7.7 Hypochromasia Moderate Anisocytosis Slight Microcytosis Slight PT 14.3 H (9.0-12.0) sec INR 1.4 H (<1.2) APTT 37.0 H (22.0-30.0) sec Sodium 137 (137-145) mmol/L Potassium 4.6 (3.5-5.1) mmol/L Chloride 101 (98-107) mmol/L Carbon Dioxide 29 (22-30) mmol/L Anion Gap 7 mmol/L BUN 34 H (9-20) mg/dL Creatinine 1.15 (0.66-1.25) mg/dL Est GFR (CKD-EPI)AfAm 70 (>60 ml/min/1.73 sqM) Est GFR (CKD-EPI)NonAf 61 (>60 ml/min/1.73 sqM) Glucose 197 H (74-99) mg/dL Plasma Lactic Acid Avlaro (0.7-2.0) mmol/L Calcium 8.4 (8.4-10.2) mg/dL Total Bilirubin 0.5 (0.2-1.3) mg/dL AST 26 (17-59) U/L ALT 23 (4-49) U/L Alkaline Phosphatase 116 (38-126) U/L Total Protein 5.2 L (6.3-8.2) g/dL Albumin 2.6 L (3.5-5.0) g/dL 11/17/20 Range/Units 09:35 WBC (3.8-10.6) k/uL RBC (4.30-5.90) m/uL Hgb (13.0-17.5) gm/dL Hct (39.0-53.0) % MCV (80.0-100.0) fL MCH (25.0-35.0) pg MCHC (31.0-37.0) g/dL RDW (11.5-15.5) % Plt Count (150-450) k/uL MPV Hypochromasia Anisocytosis Microcytosis PT (9.0-12.0) sec INR (<1.2) APTT (22.0-30.0) sec Sodium (137-145) mmol/L Potassium (3.5-5.1) mmol/L Chloride (98-107) mmol/L Carbon Dioxide (22-30) mmol/L Anion Gap mmol/L BUN (9-20) mg/dL Creatinine (0.66-1.25) mg/dL Est GFR (CKD-EPI)AfAm (>60 ml/min/1.73 sqM) Est GFR (CKD-EPI)NonAf (>60 ml/min/1.73 sqM) Glucose (74-99) mg/dL Plasma Lactic Acid Alvaro 2.4 H* (0.7-2.0) mmol/L Calcium (8.4-10.2) mg/dL Total Bilirubin (0.2-1.3) mg/dL AST (17-59) U/L ALT (4-49) U/L Alkaline Phosphatase (38-126) U/L Total Protein (6.3-8.2) g/dL Albumin (3.5-5.0) g/dL Critical Care Time Critical Care Time: Yes Total Critical Care Time: 35 Disposition Clinical Impression: Cellulitis, leg, Anemia, Sepsis Disposition: ADMITTED IP TO THIS HOSP Referrals: Lorraine Toney DO [Primary Care Provider] - 1-2 days Time of Disposition: 11:02
[2020-11-17 10:28] LABS: Anisocytosis Slight; Basophils % (A) 0 %; Eosinophils # (A) 0.1 k/uL (0-0.7); Eosinophils % (A) 0 %; HCT 31.3 % (39.0-53.0); Hypochromasia Moderate; Lymphocytes # (A) 0.3 k/uL (1.0-4.8); Lymphocytes % (A) 1 %; MCH 25.7 pg (25.0-35.0); MCV 80.5 fL (80.0-100.0); Mean Platelet Volume 7.7; Microcytosis Slight; Monocytes # (A) 0.4 k/uL (0-1.0); Monocytes % (A) 1 %; Neutrophils # (A) 28.1 k/uL (1.3-7.7); Neutrophils % (A) 97 %; Platelet Count 280 k/uL (150-450); RBC 3.89 m/uL (4.30-5.90); RDW 17.7 % (11.5-15.5); WBC 28.8 k/uL (3.8-10.6)
[2020-11-17 10:34] LABS: Albumin 2.6 g/dL (3.5-5.0); Calcium 8.4 mg/dL (8.4-10.2); Potassium 4.6 mmol/L (3.5-5.1); Total Bilirubin 0.5 mg/dL (0.2-1.3); Total Protein 5.2 g/dL (6.3-8.2)
[2020-11-17 10:39] LABS: INR 1.4 (<1.2); Prothrombin Time 14.3 sec (9.0-12.0)
[2020-11-17] MEDS ORDERED: PIPERACILLIN-TAZOBACTAM 3.375 GM in SODIUM CHLORIDE 0.9% 100 ML IVPB ONE (11:00)
--- NOTE | 2020-11-17 11:01 | US ---
EXAMINATION TYPE: US venous doppler duplex LE LT DATE OF EXAM: 11/17/2020 9:34 AM COMPARISON: 11/23/2019 CLINICAL HISTORY: Rule out DVT. Edema SIDE PERFORMED: Left TECHNIQUE: The lower extremity deep venous system is examined utilizing real time linear array sonog jeancarlos with graded compression, doppler sonography and color-flow sonography. VESSELS IMAGED: Common Femoral Vein Deep Femoral Vein Greater Saphenous Vein * Femoral Vein Popliteal Vein Small Saphenous Vein * Left Leg: Negative for DVT IMPRESSION: 1. No evidence of deep venous thrombosis in the left lower extremity veins. There is left lower extre mity edema.
--- NOTE | 2020-11-17 11:06 | XR ---
EXAMINATION TYPE: XR chest 2V DATE OF EXAM: 11/17/2020 COMPARISON: Chest x-ray 01/17/2018, CT chest dated 08/19/2015 HISTORY: Fever, abnormal chest x-ray TECHNIQUE: Frontal and lateral views of the chest are obtained. FINDINGS: There is flattening of hemidiaphragms, increased AP diameter chest. Aorta is dense. The he art remains enlarged. Interstitium appears mildly increased. There is no evident pneumothorax or pleu ral effusion. Mediastinum shows a widened appearance which may be technical. Postop change noted the right shoulder. There are overlying leads, postop changes noted in the cervical spine. IMPRESSION: Correlate for pulmonary venous hypertension and interstitial edema in a patient with pre -existing COPD.
[2020-11-17] MEDS ORDERED: ALBUTEROL NEBULIZED 2.5 MG/3 ML INHALATION PRN (11:28)
[2020-11-17 11:33] LABS: Poikilocytosis (M) Present
--- NOTE | 2020-11-17 11:35 | P.HPIM ---
History of Present Illness This is a pleasant 80 years old male past medical history of atrial fibrillation on Xarelto, coronary artery disease status post stent , obstructive sleep apnea. He is a patient of Dr. Velez. Patient is a known case of bilateral leg swelling and difficulty walking however over the last 2 days is becoming more hard for him to wake and more painful At baseline and he uses a walker and the last couple days he had difficulty walk ing due to his left leg swelling and pain. Also patient reports shortness of breath with exertion for more than a week. However he denies chest pain. He is not on home oxygen. He saw his cardiologi st Dr. Cancino about one week ago for him visit and they recommended he put a heart monitor also just routine. Patient denies any syncope or dizziness. No abdominal pain, no urinary complaints. Vital showing tachycardia with heart rate around 110, blood pressure 99/75. He is saturating 96% on 2 L Labs showing worsening leukocytosis from 12.7 last month up to 28.8 KG today. His hemoglobin went down to 11.6 down to 10.0 today. While his platelets are normal at 280. INR is 1.4. Sodium 1 potassium are within the reference range, creatinine is stable at 1.1. Plasma lactic that is slightly elevated at 2.4. Liver enzymes not increased Chest x-ray: Correlate for pulmonary venous hypertension and interstitial edema in a patient with pre-existing COPD Venous Doppler: Negative DVT in the left leg Irrigationist Designer felt patient was started on Zosyn Review of Systems CONSTITUTIONAL: No fever, no malaise, no fatigue. HEENT: No recent visual problems or hearing problems. Denied any sore throat. CARDIOVASCULAR: No orthopnea, PND, no palpitations, no syncope. PULMONARY: No chest wall tenderness, no hemoptysis. GASTROINTESTINAL: No diarrhea, no nausea, no vomiting, no abdominal pain. Normoactive bowel sounds. NEUROLOGICAL: No headaches, no weakness, no numbness. HEMATOLOGICAL: Denies any bleeding or petechiae. GENITOURINARY: Denies any burning micturition, frequency, or urgency. MUSCULOSKELETAL/RHEUMATOLOGICAL: Denies any joint pain, swelling, or any muscle pain. ENDOCRINE: Denies any polyuria or polydipsia. Past Medical History Past Medical History: Atrial Fibrillation, Asthma, Coronary Artery Disease (CA D), Chest Pain / Angina, Eye Disorder, Osteoarthritis (OA), Sleep Apnea/CPAP/BIPAP Additional Past Medical History / Comment(s): HX CATARACTS. ONLY HAS LEFT KIDNEY- RT ONE REMOVED "BECAUSE IT WAS DETERIORATING". USES CPAP, HX POLIO LT ARM.. History of Any Multi-Drug Resistant Organisms: MRSA Date of last positivie culture/infection: 12/29/19 MDRO Source:: LEG MRSA Past Surgical History: Ablation, Appendectomy, Heart Catheterization With Stent, Hernia Repair, Joint Replacement, Orthopedic Surgery Additional Past Surgical History / Comment(s): RT KIDNEY REMOVED. EXC CATARACTS. LEFT HAND THUMB AND INDEX FINGER SX ON MUSCLE, LEFT KNEE REPLACEMENT, REVERSE TOTAL RT Shoulder. PTCA W/ STENT X2.ALEXANDER, CARDIVERSION, cervical cage neck, and back vertaflex Past Anesthesia/Blood Transfusion Reactions: No Reported Reaction Additional Past Anesthesia/Blood Transfusion Reaction / Comment(s): "has never received blood" Date of Last Stent Placement:: 2010 Past Psychological History: No Psychological Hx Reported Smoking Status: Never smoker Past Alcohol Use History: Occasional Past Drug Use History: None Reported - Past Family History Father Family Medical History: CVA/TIA Mother Family Medical History: Cancer Additional Family Medical History / Comment(s): BREAST CANCER Medications and Allergies Home Medications Medication Instructions Recorded Confirmed Type Omeprazole [PriLOSEC] 20 mg PO AC-BRKFST 06/24/15 11/17/20 History predniSONE 10 mg PO DAILY 06/24/15 11/17/20 History Rivaroxaban [Xarelto] 20 mg PO DAILY 08/19/15 11/17/20 History Tamsulosin [Flomax] 0.4 mg PO DAILY 02/12/17 11/17/20 History Cholecalciferol [Vitamin D3 (25 1,000 unit PO DAILY tab 02/16/17 11/17/20 Rx Mcg = 1000 Iu)] Cyanocobalamin [Vitamin B-12] 500 mcg PO DAILY tab 02/16/17 11/17/20 Rx Diltiazem Cd [Cardizem CD] 180 mg PO DAILY cap 02/16/17 11/17/20 Rx Montelukast [Singulair] 10 mg PO DAILY tab 02/16/17 11/17/20 Rx Theophylline 24 Hour [Topher-24] 300 mg PO DAILY cap 02/16/17 11/17/20 Rx Ascorbic Acid [Vitamin C] 1,000 mg PO DAILY 04/22/18 11/17/20 History Magnesium 200 mg PO DAILY 04/22/18 11/17/20 History Albuterol Sulfate [Proair Hfa] 1 - 2 puff INHALATION RT-Q6H PRN 11/07/20 History Beclomethasone Dip 80 Mcg/Puff 2 puff INHALATION RT-DAILY 11/07/20 11/17/20 History [Qvar 80 mcg] Budesonide/Glycopyr/Formoterol 2 puff INHALATION RT-DAILY 11/07/20 11/17/20 History [Breztri Aerosphere Inhaler] EPINEPHrine (Auto Inject) [Epipen] 0.3 mg IM ONCE PRN 11/07/20 11/17/20 History HYDROcodone/APAP 10-325MG [[place] 1 tab PO Q8H PRN 11/07/20 11/17/20 History 10-325] Furosemide [Lasix] 40 mg PO BID@0900,1600 4 Days #8 11/08/20 11/17/20 Rx tab Clotrimazole Chato [Mycelex 10 mg MUCOUS MEM 5XD 11/17/20 11/17/20 History Chato] Allergies Allergy/AdvReac Type Severity Reaction Status Date / Time aspirin Allergy Rash/Hives Verified 11/17/20 09:51 Iodinated Contrast Media Allergy Dyspnea, Verified 11/17/20 09:51 [Iodinated Contrast Media - HIVES IV Dye] CHLORINE Allergy Dyspnea Uncoded 11/17/20 08:57 Physical Exam Vitals: Vital Signs Temp Pulse Resp BP Pulse Ox 11/17/20 10:07 110 H 18 99/75 96 11/17/20 09:33 122 H 18 107/72 93 L 11/17/20 09:27 98.5 F 11/17/20 08:51 97.5 F L 128 H 20 119/73 94 L Intake and Output 11/16/20 11/17/20 11/17/20 22:59 06:59 14:59 Other: Weight 83.915 kg GENERAL: The patient is alert and oriented x3, not in any acute distress. Well developed, well nourished. HEENT: Pupils are round and equally reacting to light. EOMI. No scleral icterus. No conjunctival pallor. Normocephalic, atraumatic. No pharyngeal erythema. No thyromegaly. CARDIOVASCULAR: S1 and S2 present. No murmurs, rubs, or gallops. -PULMONARY: Chest is clear to auscultation, no wheezing or crackles. Bilateral basal crepitation, more on the right side ABDOMEN: Soft, nontender, nondistended, normoactive bowel sounds. No palpable organomegaly. MUSCULOSKELETAL: No joint swelling or deformity. -EXTREMITIES: No cyanosis, clubbing, bilateral pitting leg edema, significantly more on the left side. Left leg with redness, tenderness and swelling mainly posteriorly through both the leg and the left side NEUROLOGICAL: Gross neurological examination did not reveal any focal deficits. SKIN: No rashes. No petechiae Results CBC & Chem 7: 11/17/20 09:35 11/17/20 09:35 Labs: Abnormal Lab Results - Last 24 Hours (Table) 11/17/20 11/17/20 11/17/20 Range/Units 09:35 09:35 09:35 WBC 28.8 H (3.8-10.6) k/uL RBC 3.89 L (4.30-5.90) m/uL Hgb 10.0 L D (13.0-17.5) gm/dL Hct 31.3 L (39.0-53.0) % RDW 17.7 H (11.5-15.5) % PT 14.3 H (9.0-12.0) sec INR 1.4 H (<1.2) APTT 37.0 H (22.0-30.0) sec BUN 34 H (9-20) mg/dL Glucose 197 H (74-99) mg/dL Plasma Lactic Acid Alvaro (0.7-2.0) mmol/L Total Protein 5.2 L (6.3-8.2) g/dL Albumin 2.6 L (3.5-5.0) g/dL 11/17/20 Range/Units 09:35 WBC (3.8-10.6) k/uL RBC (4.30-5.90) m/uL Hgb (13.0-17.5) gm/dL Hct (39.0-53.0) % RDW (11.5-15.5) % PT (9.0-12.0) sec INR (<1.2) APTT (22.0-30.0) sec BUN (9-20) mg/dL Glucose (74-99) mg/dL Plasma Lactic Acid Alvaro 2.4 H* (0.7-2.0) mmol/L Total Protein (6.3-8.2) g/dL Albumin (3.5-5.0) g/dL Assessment and Plan Assessment: Left leg cellulitis Atrial fibrillation on Xarelto acute on chronic congestive heart failure, unknown ejection fraction. Old echo from 2017 showing ejection fraction of 55-60% History of coronary artery disease, status post stent placement Obstructive sleep apnea Chronic bilateral leg swelling with chronic venous insufficiency Chronic gait difficulty secondary to his bilateral leg swelling
[2020-11-17 14:00] LABS: Anisocytosis Slight; HCT 29.5 % (39.0-53.0); HGB 9.3 gm/dL (13.0-17.5); Hypochromasia Marked; MCH 25.4 pg (25.0-35.0); MCHC 31.5 g/dL (31.0-37.0); MCV 80.6 fL (80.0-100.0); Mean Platelet Volume 7.6; Microcytosis Slight; Platelet Count 271 k/uL (150-450); RBC 3.66 m/uL (4.30-5.90); RDW 17.6 % (11.5-15.5); WBC 30.5 k/uL (3.8-10.6)
[2020-11-17 15:40] LABS: Band Neutrophils % 9 %; Eosinophils # (M) 0.31 k/uL (0-0.7); Lymphocytes # (M) 0.61 k/uL (1.0-4.8); Metamyelocytes # (M) 0.31 k/uL (0); Metamyelocytes % 1 %; Monocytes # (M) 0.31 k/uL (0-1.0); Neutrophils % (M) 86 %; Nucleated Red Blood Cells 0 /100 WBC (0-0); Total Cells Counted 100
[2020-11-17] MEDS: HYDROmorphone 0.5 MG/0.5 ML SYRINGE IVP PRN ×2 (16:02→21:52)
[2020-11-17] MEDS ORDERED: PIPERACILLIN-TAZOBACTAM 3.375 GM in SODIUM CHLORIDE 0.9% 100 ML IVPB SCH (19:00)
--- NOTE | 2020-11-17 21:33 | CONS ---
DATE OF CONSULTATION: 11/17/2020 This is a 80-year-old gentleman, well known to me from the past. The patient came with marked swelling and redness of the left lower extremity. The patient had a history of a chronic wound to the left leg. We treated him with local wound care and healed completely. The patient also has history of bilateral lower leg lymphedema. The patient was treated with lymphedema pump. MEDICAL HISTORY: Positive for coronary artery stent and atrial fibrillation on Xarelto. No history of diabetes. PHYSICAL EXAMINATION: Patient was seen in the intensive care unit. NECK: Supple. Trachea central. Chest: Good air into both lung with few crackles noted to the lung bases. Vascular examination: Brachial, radial and femoral pulses are present. Patient has marked swelling and redness of the left lower extremity. The patient has mild swelling of the right lower extremity. IMPRESSION: Marked cellulitis of the left lower extremity. The patient had a venous ultrasound. There is no evidence for deep vein thrombosis. PLAN: Silvadene cream with Don wrap with 1 pillow elevation. The patient is on IV antibiotic. Follow with you. Thank you for the consultation. MMODL / IJN: [id number] / LEE
[2020-11-17 21:44] LABS: Anisocytosis Slight; Basophils # (A) 0.1 k/uL (0-0.2); Basophils % (A) 0 %; Eosinophils # (A) 0.1 k/uL (0-0.7); Eosinophils % (A) 1 %; HCT 31.6 % (39.0-53.0); HGB 9.7 gm/dL (13.0-17.5); Hypochromasia Marked; Lymphocytes # (A) 0.2 k/uL (1.0-4.8); Lymphocytes % (A) 1 %; MCH 25.1 pg (25.0-35.0); MCHC 30.6 g/dL (31.0-37.0); MCV 82.1 fL (80.0-100.0); Mean Platelet Volume 8.9; Monocytes # (A) 0.2 k/uL (0-1.0); Monocytes % (A) 1 %; Neutrophils # (A) 23.3 k/uL (1.3-7.7); Neutrophils % (A) 98 %; Platelet Count 257 k/uL (150-450); RBC 3.84 m/uL (4.30-5.90); RDW 17.5 % (11.5-15.5); WBC 23.8 k/uL (3.8-10.6)
[2020-11-18] MEDS: HYDROcodone/APAP 10-325MG 1 EACH TAB PO PRN (02:55)
[2020-11-18] MEDS: PIPERACILLIN-TAZOBACTAM 3.375 GM in SODIUM CHLORIDE 0.9% 100 ML IVPB SCH ×3 (05:59→23:14)
[2020-11-18] MEDS ORDERED: PANTOPRAZOLE 40 MG TABLET PO STA (06:07)
[2020-11-18 06:46] LABS: African American GFR (CKD) 62 (>60 ml/min/1.73 sqM); Anion Gap 4 mmol/L; Blood Urea Nitrogen 31 mg/dL (9-20); Calcium 7.8 mg/dL (8.4-10.2); Carbon Dioxide 31 mmol/L (22-30); Chloride 99 mmol/L (98-107); Glucose 130 mg/dL (74-99); Non-African American GFR(CKD) 53 (>60 ml/min/1.73 sqM); Potassium 4.8 mmol/L (3.5-5.1); Sodium 134 mmol/L (137-145)
[2020-11-18] MEDS ORDERED: FAMOTIDINE 20 MG/2 ML VIAL IV SCH (09:00)
[2020-11-18] MEDS: HYDROmorphone 0.5 MG/0.5 ML SYRINGE IVP PRN ×3 (09:06→20:47)
[2020-11-18] MEDS: TAMSULOSIN 0.4 MG CAP.ER.24H PO SCH (09:08)
[2020-11-18] MEDS: DILTIAZEM CD 180 MG CAP.ER.24H PO SCH (09:08)
[2020-11-18] MEDS: CYANOCOBALAMIN 500 MCG TAB PO SCH (09:08)
[2020-11-18] MEDS: RIVAROXABAN 20 MG TAB PO SCH (09:08)
[2020-11-18] MEDS: predniSONE 10 MG TAB PO SCH (09:08)
[2020-11-18] MEDS: MONTELUKAST 10 MG TAB PO SCH (09:08)
[2020-11-18] MEDS: MAGNESIUM OXIDE 400 MG TAB PO SCH (09:08)
[2020-11-18] MEDS: THEOPHYLLINE 24 HOUR 300 MG CAP.ER.24H PO SCH (09:08)
[2020-11-18 10:53] LABS: Basophils # (A) 0.06 X 10*3/uL (0.00-0.10); Basophils % (A) 0.3 %; Eosinophils # (A) 0.12 X 10*3/uL (0.04-0.35); Eosinophils % (A) 0.5 %; HCT 30.6 % (39.6-50.0); HGB 8.7 g/dL (13.0-17.0); Lymphocytes # (A) 0.28 X 10*3/uL (0.90-5.00); Lymphocytes % (A) 1.2 %; MCH 24.6 pg (27.0-32.0); MCHC 28.4 g/dL (32.0-37.0); MCV 86.4 fL (80.0-97.0); Mean Platelet Volume 9.8 fL (9.5-12.2); Monocytes # (A) 0.12 X 10*3/uL (0.20-1.00); Monocytes % (A) 0.5 %; Neutrophils # (A) 22.13 X 10*3/uL (1.80-7.70); Neutrophils % (A) 96.6 %; Platelet Count 241 X 10*3/uL (140-440); RBC 3.54 X 10*6/uL (4.40-5.60); RDW 19.2 % (11.5-14.5); WBC 22.91 X 10*3/uL (4.50-10.00)
--- NOTE | 2020-11-18 14:33 | P.PN ---
Subjective This is a pleasant 80 years old male past medical history of atrial fibrillation on Xarelto, coronary artery disease status post stent , obstructive sleep apnea. He is a patient of Dr. Velez. Patient is a known case of bilateral leg swelling and difficulty walking however over the last 2 days is becoming more hard for him to wake and more painful At baseline and he uses a walker and the last couple days he had difficulty walking due to his left leg swelling and pain. Also patient reports shortness of breath with exertion for more than a week. However he denies chest pain. He is not on home oxygen. He saw his cupola repairer Dr. Cancino about one week ago for him visit and they recommended he put a heart monitor also just routine. Patient denies any syncope or dizziness. No abdominal pain, no urinary complaints. Vital showing tachycardia with heart rate around 110, blood pressure 99/75. He is saturating 96% on 2 L Labs showing worsening leukocytosis from 12.7 last month up to 28.8 KG today. His hemoglobin went down to 11.6 down to 10.0 today. While his platelets are normal at 280. INR is 1.4. Sodium 1 potassium are within the reference range, creatinine is stable at 1.1. Plasma lactic that is slightly elevated at 2.4. Liver enzymes not increased Chest x-ray: Correlate for pulmonary venous hypertension and interstitial edema in a patient with pre-existing COPD Venous Doppler: Negative DVT in the left leg Concrete Boom Operator felt patient was started on Zosyn 11/18/2020 Patient with left leg cellulitis, still complaining of from redness and tenderness in his left lower extremity. He is hemodynamically stable. Tachycar eileen is better Labs showing persistent leukocytosis at 22. Creatinine is slightly up to 1.2.going to order a urine analysis and check a bladder scan. Probecalcitonin is elevated at 1.56 Patient remains on Zosyn Horizontal consult infectious disease team as well as. Objective - Vital Signs Vital signs: Vital Signs Temp 97.6 F 11/18/20 05:53 Pulse 96 11/18/20 10:00 Resp 18 11/18/20 10:00 BP 100/64 11/18/20 10:00 Pulse Ox 98 11/18/20 10:00 Intake & Output 11/17/20 11/18/20 11/18/20 18:59 06:59 18:59 Weight 83.915 kg - Labs CBC & Chem 7: 11/18/20 05:32 11/18/20 05:32 Labs: Abnormal Lab Results - Last 24 Hours (Table) 11/17/20 11/17/20 11/18/20 Range/Units 13:02 21:30 05:32 WBC 30.5 H 23.8 H (3.8-10.6) k/uL RBC 3.66 L 3.84 L (4.30-5.90) m/uL Hgb 9.3 L 9.7 L (13.0-17.5) gm/dL Hct 29.5 L 31.6 L (39.0-53.0) % MCH (27.0-32.0) pg MCHC 30.6 L (31.0-37.0) g/dL RDW 17.6 H 17.5 H (11.5-15.5) % Immature Gran # (0.00-0.04) X 10*3/uL Neutrophils # 23.3 H (1.3-7.7) k/uL Neutrophils # (Manual) 28.90 H (1.3-7.7) k/uL Lymphocytes # 0.2 L (1.0-4.8) k/uL Lymphocytes # (Manual) 0.61 L (1.0-4.8) k/uL Monocytes # (0.20-1.00) X 10*3/uL Metamyelocytes # (Man) 0.31 H (0) k/uL Sodium (137-145) mmol/L Carbon Dioxide (22-30) mmol/L BUN (9-20) mg/dL Creatinine (0.66-1.25) mg/dL Glucose (74-99) mg/dL Calcium (8.4-10.2) mg/dL Procalcitonin 1.56 H (0.02-0.09) ng/mL 11/18/20 11/18/20 Range/Units 05:32 05:32 WBC 22.91 H (3.8-10.6) k/uL RBC 3.54 L (4.30-5.90) m/uL Hgb 8.7 L (13.0-17.5) gm/dL Hct 30.6 L (39.0-53.0) % MCH 24.6 L (27.0-32.0) pg MCHC 28.4 L (31.0-37.0) g/dL RDW 19.2 H (11.5-15.5) % Immature Gran # 0.20 H (0.00-0.04) X 10*3/uL Neutrophils # 22.13 H (1.3-7.7) k/uL Neutrophils # (Manual) (1.3-7.7) k/uL Lymphocytes # 0.28 L (1.0-4.8) k/uL Lymphocytes # (Manual) (1.0-4.8) k/uL Monocytes # 0.12 L (0.20-1.00) X 10*3/uL Metamyelocytes # (Man) (0) k/uL Sodium 134 L (137-145) mmol/L Carbon Dioxide 31 H (22-30) mmol/L BUN 31 H (9-20) mg/dL Creatinine 1.27 H (0.66-1.25) mg/dL Glucose 130 H (74-99) mg/dL Calcium 7.8 L (8.4-10.2) mg/dL Procalcitonin (0.02-0.09) ng/mL Microbiology - Last 24 Hours (Table) 11/17/20 09:35 Blood Culture - Preliminary Blood No Growth after 24 hours 11/17/20 09:35 Blood Culture - Preliminary Blood No Growth after 24 hours Assessment and Plan Assessment: Left leg cellulitis Atrial fibrillation on Xarelto acute on chronic congestive heart failure, unknown ejection fraction. Old echo from 2017 showing ejection fraction of 55-60% History of coronary artery disease, status post stent placement Obstructive sleep apnea Chronic bilateral leg swelling with chronic venous insufficiency Chronic gait difficulty secondary to his bilateral leg swelling Plan: This is a pleasant 80 years old male who presents with left leg cellulitis. Continue with Zosyn. Follow-up blood culture. Follow-up WBC. Vascular surgery consult. Infectious disease consult Labs and medication were reviewed.. Continue same treatment. Continue with symptomatic treatment. Resume home medication. Monitor lytes and vitals. DVT and GI prophylaxis. Further recommendationsas per clinical course of the patient DVT prophylaxis: Xarelto GI Prophylaxis: Pepcid PT/OT: Pending Prognosis is guarded
[2020-11-18 18:14] LABS: Appearance,Urine Clear (Clear); Bilirubin,Urine Negative (Negative); Blood,Urine Negative (Negative); Color,Urine Yellow; Glucose,Urine (UA) Trace (Negative); Ketones,Urine Negative (Negative); Leukocyte Esterase,Urine Negative (Negative); Mucus,Urine Rare /hpf; Nitrite,Urine Negative (Negative); PH, Urine 5.5 (5.0-8.0); Protein,Urine 1+ (Negative); RBC,Urine 3 /hpf (0-5); Specific Gravity,Urine 1.025 (1.001-1.035); Urobilinogen,Urine <2.0 mg/dL (<2.0); WBC,Urine 1 /hpf (0-5)
--- NOTE | 2020-11-18 21:56 | PN ---
PROGRESS NOTE This is a 80-year-old gentleman, well known to me from the past. The patient came to the emergency room with extensive cellulitis of the left lower extremity. The patient had a venous ultrasound. There is no evidence for deep vein thrombosis. The patient has history of lymphedema in the past. He has been going to the lymphedema clinic. He has been using lymphedema pump. The patient had this swelling and redness for the past few days. The patient has been admitted. We have a placed Silvadene cream and compression wrap, 1 pillow elevation. The patient is on IV antibiotic under care of Infectious Disease. We will follow with you. Thank you for the consult. MMODL / IJN: [id number] /
[2020-11-19] MEDS: HYDROmorphone 0.5 MG/0.5 ML SYRINGE IVP PRN ×4 (02:24→14:45)
--- NOTE | 2020-11-19 08:51 | CONS ---
CONSULTATION DATE OF SERVICE: 11/18/2020 REASON FOR CONSULTATION: Left lower extremity cellulitis. HISTORY OF PRESENT ILLNESS: The patient is a 80-year-old male presenting to the ER yesterday morning for evaluation of increasing pain, swelling and redness to the left lower extremity. The patient said has been getting worse over the last few days before presentation to hospital. The patient denies any history of any trauma. The patient complaining of pain to the left big toe to be more of a dull aching and throbbing intensity 6/10 no radiation. The patient did not have any open wound or any drainage. Has been complaining of some soreness in the mouth, but no difficulty swallowing or breathing. Denies high-grade fever. Did have some chills and has difficulty walking or putting any weight on his left leg. With these symptoms, the patient was evaluated by the ER physician. On arrival to the ER, patient was afebrile. No fever recorded subsequently. The patient did have a white count of 30,000 . The patient did have lower extremity Doppler was negative for DVT. BUN was slightly elevated. Urine is negative. The patient has been started on Zosyn and admitted to the hospital. Infectious Disease was consulted for further management for antibiotic therapy. REVIEW OF SYSTEMS: Positive points have been mentioned in HPI. Rest of systems are negative. PAST MEDICAL HISTORY: Atrial fibrillation, asthma, coronary artery disease, osteoarthritis, sleep apnea, cataract surgery. PAST SURGERY HISTORY: Appendectomy, heart catheterization with stent, hernia repair. Joint replacement. SOCIAL HISTORY: No history of smoking. Occasionally drinks. No drug use. FAMILY HISTORY: Father with history of CAD. Mother history of breast cancer. ALLERGIES: IODINATED CONTRAST DYE, ASPIRIN. MEDICATIONS: The patient is currently on Pierc[place], Ventolin, Zosyn, Cardizem, Pepcid, Dilaudid, Mag oxide, Singulair, and Prednisone, Xarelto, Flomax . PHYSICAL EXAMINATION: Blood pressure is 132/79 with a pulse of 90, temperature 97.7. He is 98% on 2 L nasal cannula. General description is an elderly male lying in bed in no distress. No tachypnea or accessory muscles of respiration use. HEENT: Examination shows slight pallor. No scleral icterus. Oral mucous membrane is dry. NECK trachea central. No thyromegaly. LUNGS unlabored breathing. Clear to auscultation. No wheeze or crackles. HEART S1, S2. Regular rate and rhythm. ABDOMEN: Soft, no tenderness. No guarding. No rigidity. EXTREMITIES: Left leg did have diffuse swelling and redness with redness extending on the medial left thigh area. Currently with no obvious focus or any open wound drainage. The patient did have evidence of athlete's foot in between the toes. NEUROLOGICAL: Patient is awake, alert, oriented times three. Mood and affect normal. LABS: The patient's lower extremity Doppler has been negative for DVT. White count was 30,000 blood culture obtained, currently pending. DIAGNOSTIC IMPRESSION/PLAN: 1. Patient admitted to the hospital with acute left lower extremity cellulitis in this patient who did have diffuse swelling and redness with evidence of athlete's foot likely streptococcal disease. Clinically doubt a gram-negative or MRSA infection. 2. Oral thrush. 3. Athlete's foot. PLAN: 1. Discontinue Zosyn. 2. Start the patient on cefazolin 2 grams q.8 hours. 3. Nystatin powder in between the toes twice a day. 4. Mycostatin suspension 4 times daily. 5. We will follow on his clinical condition and culture to further adjust medication if needed. Thank you for this consultation. Will follow this patient along with you. MMODL / IJN: [id number] /
[2020-11-19] MEDS: MAGNESIUM OXIDE 400 MG TAB PO SCH (09:07)
[2020-11-19] MEDS: CYANOCOBALAMIN 500 MCG TAB PO SCH (09:07)
[2020-11-19] MEDS: MONTELUKAST 10 MG TAB PO SCH (09:07)
[2020-11-19] MEDS: predniSONE 10 MG TAB PO SCH (09:07)
[2020-11-19] MEDS: FAMOTIDINE 20 MG TAB PO SCH (09:07)
[2020-11-19] MEDS: TAMSULOSIN 0.4 MG CAP.ER.24H PO SCH (09:07)
[2020-11-19] MEDS: NYSTATIN 100,000 UNIT/ML SUSP 500,000 UNIT/5 ML CUP PO SCH ×3 (09:07→17:52)
[2020-11-19] MEDS: NYSTATIN 100,000 UNIT/GM POWD 15 GM TOPICAL SCH (09:08)
[2020-11-19] MEDS: HYDROcodone/APAP 10-325MG 1 EACH TAB PO PRN ×2 (09:16→18:25)
[2020-11-19] MEDS: DILTIAZEM CD 180 MG CAP.ER.24H PO SCH (10:20)
[2020-11-19] MEDS: THEOPHYLLINE 24 HOUR 300 MG CAP.ER.24H PO SCH (10:21)
[2020-11-19] MEDS: RIVAROXABAN 20 MG TAB PO SCH (10:21)
--- NOTE | 2020-11-19 12:38 | P.PN ---
Subjective This is a pleasant 80 years old male past medical history of atrial fibrillation on Xarelto, coronary artery disease status post stent , obstructive sleep apnea. He is a patient of Dr. Velez. Patient is a known case of bilateral leg swelling and difficulty walking however over the last 2 days is becoming more hard for him to wake and more painful At baseline and he uses a walker and the last couple days he had difficulty walking due to his left leg swelling and pain. Also patient reports shortness of breath with exertion for more than a week. However he denies chest pain. He is not on home oxygen. He saw his sketch liner Dr. Cancino about one week ago for him visit and they recommended he put a heart monitor also just routine. Patient denies any syncope or dizziness. No abdominal pain, no urinary complaints. Vital showing tachycardia with heart rate around 110, blood pressure 99/75. He is saturating 96% on 2 L Labs showing worsening leukocytosis from 12.7 last month up to 28.8 KG today. His hemoglobin went down to 11.6 down to 10.0 today. While his platelets are normal at 280. INR is 1.4. Sodium 1 potassium are within the reference range, creatinine is stable at 1.1. Plasma lactic that is slightly elevated at 2.4. Liver enzymes not increased Chest x-ray: Correlate for pulmonary venous hypertension and interstitial edema in a patient with pre-existing COPD Venous Doppler: Negative DVT in the left leg Air Quality Chemist felt patient was started on Zosyn 11/18/2020 Patient with left leg cellulitis, still complaining of from redness and tenderness in his left lower extremity. He is hemodynamically stable. Tachycar eileen is better Labs showing persistent leukocytosis at 22. Creatinine is slightly up to 1.2.going to order a urine analysis and check a bladder scan. Probecalcitonin is elevated at 1.56 Patient remains on Zosyn Horizontal consult infectious disease team as well as. 11/19/2020 Patient left leg cellulitis is improving gradually. His breathing is quiet and he denies dyspnea or chest pain. Most likely he is a stable. From today, we ordered and follow-up the results. Excess disease team input is appreciated and his antibiotics was switched to cefazolin, nystatin for athlete's foot. Vascular surgery team input is appreciated. No surgical intervention Objective - Vital Signs Vital signs: Vital Signs Temp 97.9 F 11/19/20 08:00 Pulse 113 H 11/19/20 08:00 Resp 19 11/19/20 08:00 BP 102/65 11/19/20 08:00 Pulse Ox 94 L 11/19/20 08:00 Intake & Output 11/18/20 11/19/20 11/19/20 18:59 06:59 18:59 Output Total 300 Balance -300 Weight 83.915 kg Output: Post Void Residual 300 - Exam GENERAL: The patient is alert and oriented x3, not in any acute distress. Well developed, well nourished. HEENT: Pupils are round and equally reacting to light. EOMI. No scleral icterus. No conjunctival pallor. Normocephalic, atraumatic. No pharyngeal erythema. No thyromegaly. CARDIOVASCULAR: S1 and S2 present. No murmurs, rubs, or gallops. -PULMONARY: Chest is clear to auscultation, no wheezing or crackles. Bilateral basal crepitation, more on the right side ABDOMEN: Soft, nontender, nondistended, normoactive bowel sounds. No palpable organomegaly. MUSCULOSKELETAL: No joint swelling or deformity. -EXTREMITIES: No cyanosis, clubbing, bilateral pitting leg edema, significantly more on the left side. Left leg with redness, tenderness and swelling mainly posteriorly through both the leg and the left side NEUROLOGICAL: Gross neurological examination did not reveal any focal deficits. SKIN: No rashes. No petechiae - Labs CBC & Chem 7: 11/18/20 05:32 11/18/20 05:32 Labs: Abnormal Lab Results - Last 24 Hours (Table) 11/18/20 Range/Units 17:44 Urine Protein 1+ H (Negative) Urine Glucose (UA) Trace H (Negative) Urine Mucus Rare H (None) /hpf Microbiology - Last 24 Hours (Table) 11/17/20 09:35 Blood Culture - Preliminary Blood No Growth after 48 hours 11/17/20 09:35 Blood Culture - Preliminary Blood No Growth after 48 hours Assessment and Plan Assessment: Left leg cellulitis Atrial fibrillation on Xarelto acute on chronic congestive heart failure, unknown ejection fraction. Old echo from 2017 showing ejection fraction of 55-60% History of coronary artery disease, status post stent placement Obstructive sleep apnea Chronic bilateral leg swelling with chronic venous insufficiency Chronic gait difficulty secondary to his bilateral leg swelling Plan: This is a pleasant 80 years old male who presents with left leg cellulitis. Continue with cefazolin Follow-up blood culture. Follow-up WBC. Vascular surgery consult. Infectious disease consult Labs and medication were reviewed.. Continue same treatment. Continue with symptomatic treatment. Resume home medication. Monitor lytes and vitals. DVT and GI prophylaxis. Further recommendationsas per clinical course of the patient DVT prophylaxis: Xarelto GI Prophylaxis: Pepcid PT/OT: Pending Prognosis is guarded
[2020-11-19 13:56] LABS: Anisocytosis Slight; Basophils % (A) 0 %; Eosinophils % (A) 0 %; HCT 31.2 % (39.0-53.0); HGB 9.1 gm/dL (13.0-17.5); Hypochromasia Marked; Lymphocytes # (A) 0.2 k/uL (1.0-4.8); Lymphocytes % (A) 2 %; MCH 24.5 pg (25.0-35.0); MCHC 29.3 g/dL (31.0-37.0); MCV 83.6 fL (80.0-100.0); Mean Platelet Volume 7.9; Monocytes # (A) 0.1 k/uL (0-1.0); Monocytes % (A) 1 %; Neutrophils # (A) 13.9 k/uL (1.3-7.7); Neutrophils % (A) 97 %; Platelet Count 260 k/uL (150-450); RBC 3.73 m/uL (4.30-5.90); RDW 17.3 % (11.5-15.5); WBC 14.4 k/uL (3.8-10.6)
[2020-11-19 14:50] LABS: African American GFR (CKD) 73 (>60 ml/min/1.73 sqM); Anion Gap 8 mmol/L; Blood Urea Nitrogen 30 mg/dL (9-20); Calcium 8.7 mg/dL (8.4-10.2); Carbon Dioxide 28 mmol/L (22-30); Chloride 97 mmol/L (98-107); Glucose 209 mg/dL (74-99); Non-African American GFR(CKD) 63 (>60 ml/min/1.73 sqM); Potassium 4.9 mmol/L (3.5-5.1); Sodium 133 mmol/L (137-145)
[2020-11-19] MEDS ORDERED: MAG HYDROX/AL HYDROX/SIMETH 30 ML CUP PO PRN (17:41)
--- NOTE | 2020-11-19 19:23 | PN ---
PROGRESS NOTE DATE OF SERVICE: 11/19/2020 REASON FOR FOLLOWUP: 1. Left lower extremity cellulitis. 2. Oral thrush. 3. Athlete's foot. INTERVAL HISTORY: The patient is afebrile. The patient is breathing comfortably. Denies having any chest pain. No shortness of breath or cough. No abdominal pain. No worsening pain in the left lower extremity. PHYSICAL EXAMINATION: Blood pressure 102/69, pulse of 104, temperature 98.7. She is 96% on 2 L nasal cannula. General description is a middle-aged male lying in in no distress. Respiratory system: Unlabored breathing, clear to auscultation anteriorly. HEART: S1, S2. Regular rate and rhythm. Abdomen soft, no tenderness. Left lower extremity did have some swelling and redness minimally decreased. LABS: Hemoglobin is 9.1, white count 14.4, BUN of 30, creatinine 1.11. Blood cultures have been negative. DIAGNOSTIC IMPRESSION AND PLAN: 1. Patient with acute left lower extremity cellulitis with diffuse swelling and redness likely streptococcal disease. Patient clinically responding to cefazolin. White count came down to 14,000 to continue. 2. Athlete's foot. Continue nystatin powder. 3. Oral thrush. Continue nystatin swish and swallow. MMODL / IJN: [id number] /
[2020-11-20] MEDS: HYDROmorphone 0.5 MG/0.5 ML SYRINGE IVP PRN ×6 (00:31→23:18)
[2020-11-20] MEDS: NYSTATIN 100,000 UNIT/GM POWD 15 GM TOPICAL SCH ×3 (00:34→21:20)
[2020-11-20] MEDS: NYSTATIN 100,000 UNIT/ML SUSP 500,000 UNIT/5 ML CUP PO SCH ×5 (03:05→23:01)
[2020-11-20] MEDS: THEOPHYLLINE 24 HOUR 300 MG CAP.ER.24H PO SCH (07:21)
[2020-11-20] MEDS: FAMOTIDINE 20 MG TAB PO SCH (07:21)
[2020-11-20] MEDS: RIVAROXABAN 20 MG TAB PO SCH (07:21)
[2020-11-20] MEDS: predniSONE 10 MG TAB PO SCH (07:21)
[2020-11-20] MEDS: MONTELUKAST 10 MG TAB PO SCH (07:21)
[2020-11-20] MEDS: DILTIAZEM CD 180 MG CAP.ER.24H PO SCH ×2 (07:21→13:41)
[2020-11-20] MEDS: TAMSULOSIN 0.4 MG CAP.ER.24H PO SCH (07:22)
[2020-11-20] MEDS: MAGNESIUM OXIDE 400 MG TAB PO SCH (07:23)
[2020-11-20] MEDS: CYANOCOBALAMIN 500 MCG TAB PO SCH (07:24)
[2020-11-20] MEDS ORDERED: DILTIAZEM 125 MG in SODIUM CHLORIDE 0.9% 100 ML IV SCH (09:15)
--- NOTE | 2020-11-20 09:46 | PN ---
PROGRESS NOTE Mr. Reina is known to me from the past. The patient came with history of cellulitis of both lower extremities, more on the right than on the left. The patient is under care of Infectious Disease, IV antibiotics. We have been using Silvadene cream with compression wrap and leg elevation. Cellulitis is improving. The patient discharged from the hospital, will follow up in my office. MMODL / IJN: [id number] /
[2020-11-20] MEDS: HYDROcodone/APAP 10-325MG 1 EACH TAB PO PRN ×2 (10:46→21:32)
--- NOTE | 2020-11-20 10:49 | US ---
EXAMINATION TYPE: US venous doppler duplex LE LT DATE OF EXAM: 11/20/2020 10:32 AM COMPARISON: NONE CLINICAL HISTORY: Patient has severe redness, swelling and interstitial edema. Patient in enormous am ount of pain, following pain management. SIDE PERFORMED: Left TECHNIQUE: The lower extremity deep venous system is examined utilizing real time linear array sonog jeancarlos with graded compression, doppler sonography and color-flow sonography. VESSELS IMAGED: Common Femoral Vein Deep Femoral Vein Greater Saphenous Vein * Femoral Vein Popliteal Vein Small Saphenous Vein * Proximal Calf Veins (* superficial vessels) Left Leg: Appears negative for DVT from groin to distal popliteal. Scanning of popliteal limited due to patients severe pain and excessive intersitial edema. Greater Saph scanned per Dr. request. Able to visualize from groin to knee. There is an area the spi nal thigh that may have some clot. The vein is partially compressible here. Unable to visualize GSV f rom below knee due to excessive edema. IMPRESSION: Grayscale, color doppler, spectral doppler imaging performed of the deep veins of the lo wer extremities. There is normal flow, compressibility, vascular waveforms. No evidence of left low er extremity DVT. There is probable SVT of the great saphenous vein.
--- NOTE | 2020-11-20 12:00 | PN ---
PROGRESS NOTE HISTORY: Mr. Reina has been transferred to the 3rd floor because patient was having heart rate high and the patient is starting some Cardizem drip. The patient has been complaining of more pain on the left lower extremity. The patient came with cellulitis of the left lower extremity. Patient is on IV antibiotic and Silvadene cream. Compression wrap with one pillow elevation. PHYSICAL EXAM: By the Doppler, swelling is less, but the medial aspect of the thigh has some more redness. I will repeat the ultrasound to rule out the possibility of superficial thrombophlebitis. We will continue with pain management and IV antibiotics. MMODL / IJN: [id number] /
--- NOTE | 2020-11-20 12:46 | P.PN ---
Subjective This is a pleasant 80 years old male past medical history of atrial fibrillation on Xarelto, coronary artery disease status post stent , obstructive sleep apnea. He is a patient of Dr. Velez. Patient is a known case of bilateral leg swelling and difficulty walking however over the last 2 days is becoming more hard for him to wake and more painful At baseline and he uses a walker and the last couple days he had difficulty walking due to his left leg swelling and pain. Also patient reports shortness of breath with exertion for more than a week. However he denies chest pain. He is not on home oxygen. He saw his yard assistant Dr. Cancino about one week ago for him visit and they recommended he put a heart monitor also just routine. Patient denies any syncope or dizziness. No abdominal pain, no urinary complaints. Vital showing tachycardia with heart rate around 110, blood pressure 99/75. He is saturating 96% on 2 L Labs showing worsening leukocytosis from 12.7 last month up to 28.8 KG today. His hemoglobin went down to 11.6 down to 10.0 today. While his platelets are normal at 280. INR is 1.4. Sodium 1 potassium are within the reference range, creatinine is stable at 1.1. Plasma lactic that is slightly elevated at 2.4. Liver enzymes not increased Chest x-ray: Correlate for pulmonary venous hypertension and interstitial edema in a patient with pre-existing COPD Venous Doppler: Negative DVT in the left leg [employer] felt patient was started on Zosyn 11/18/2020 Patient with left leg cellulitis, still complaining of from redness and tenderness in his left lower extremity. He is hemodynamically stable. Tachycar eileen is better Labs showing persistent leukocytosis at 22. Creatinine is slightly up to 1.2.going to order a urine analysis and check a bladder scan. Probecalcitonin is elevated at 1.56 Patient remains on Zosyn Horizontal consult infectious disease team as well as. 11/19/2020 Patient left leg cellulitis is improving gradually. His breathing is quiet and he denies dyspnea or chest pain. Most likely he is a stable. From today, we ordered and follow-up the results. Excess disease team input is appreciated and his antibiotics was switched to cefazolin, nystatin for athlete's foot. Vascular surgery team input is appreciated. No surgical intervention 11/20/2020 Patient this morning developed A. fib and RVR with heart rate in 140s to 150s (heart rate over the last 2 days was running 96-113), no chest pain or dyspnea. Patient somewhat transverse to [facility]. unit, where he was started on Cardizem drip and yard assistant evaluated the patient and continue His Home Dose of Cardizem 180 Mg Daily. Also He Added Metoprolol 25 Mg twice a day and Lasix 20 mg IV twice daily. Other vitals are stable, no labs from today which are still pending. Lactic acid was 2.6. Also patient has Doppler of the lower extremity showing superficial thrombophlebitis. Patient is to continue with cefazolin. Review of systems CONSTITUTIONAL: No fever, no malaise, no fatigue. HEENT: No recent visual problems or hearing problems. Denied any sore throat. CARDIOVASCULAR: No orthopnea, PND, no palpitations, no syncope. PULMONARY: No shortness of breath, no cough, no hemoptysis. GASTROINTESTINAL: No diarrhea, no nausea, no vomiting, no abdominal pain. Normoactive bowel sounds. Active Medications Generic Name Dose Route Start Last Admin Trade Name Freq PRN Reason Stop Dose Admin Hydrocodone Bitart/Acetaminophen 1 each 11/17/20 11:28 11/20/20 10:46 Hydrocodone/Apap 10-325mg 1 Each Tab PO 1 each Q8H PRN Administration Pain Al Hydroxide/Mg Hydroxide 30 ml 11/19/20 17:41 Mag Hydrox/Al Hydrox/Simeth 30 Ml Cup PO Q4HR PRN GI Upset Albuterol Sulfate 2.5 mg 11/17/20 11:28 Albuterol Nebulized 2.5 Mg/3 Ml INHALATION RT-Q6H PRN Shortness Of Breath Cyanocobalamin 500 mcg 11/18/20 09:00 11/20/20 07:24 Cyanocobalamin 500 Mcg Tab PO 500 mcg DAILY JIMMY Administration Diltiazem HCl 180 mg 11/20/20 11:00 Diltiazem Cd 180 Mg Cap.Er.24h PO DAILY JIMMY Epinephrine HCl 0.3 mg 11/17/20 11:28 Epinephrine 1 Mg/Ml 1 Ml Vial IM ONCE PRN Anaphylaxis Famotidine 20 mg 11/19/20 09:00 11/20/20 07:21 Famotidine 20 Mg Tab PO 20 mg DAILY JIMMY Administration Furosemide 20 mg 11/20/20 11:00 Furosemide 10 Mg/Ml 2 Ml Vial IV Q12HR JIMMY Hydromorphone HCl 0.5 mg 11/17/20 11:06 11/20/20 09:31 Hydromorphone 0.5 Mg/0.5 Ml Syringe IVP 0.5 mg Q4HR PRN Administration Pain Cefazolin Sodium 2 gm/ Sodium 50 mls @ 100 mls/hr 11/19/20 00:00 11/20/20 07:22 Chloride IVPB 100 mls/hr Q8HR JIMMY Administration Magnesium Oxide 400 mg 11/18/20 09:00 11/20/20 07:23 Magnesium Oxide 400 Mg Tab PO 400 mg DAILY JIMMY Administration Metoprolol Tartrate 25 mg 11/20/20 11:00 Metoprolol Tartrate 25 Mg Tab PO BID JIMYM Montelukast Sodium 10 mg 11/18/20 09:00 11/20/20 07:21 Montelukast 10 Mg Tab PO 10 mg DAILY JIMMY Administration Nystatin 1 applic 11/19/20 09:00 11/20/20 07:23 Nystatin 100,000 Unit/Gm Powd 15 Gm TOPICAL 1 applic BID JIMMY Administration Nystatin 500,000 unit 11/19/20 09:00 11/20/20 07:21 Nystatin 100,000 Unit/Ml Susp 500,000 Unit/5 Ml Cup PO 500,000 unit QID JIMMY Administration Prednisone 10 mg 11/18/20 09:00 11/20/20 07:21 Prednisone 10 Mg Tab PO 10 mg DAILY JIMMY Administration Rivaroxaban 20 mg 11/18/20 09:00 11/20/20 07:21 Rivaroxaban 20 Mg Tab PO 20 mg DAILY JIMMY Administration Silver Sulfadiazine 1 applic 11/20/20 21:00 Silver Sulfadiazine 1% Cream 25 Gm Tube TOPICAL HS JIMMY Tamsulosin HCl 0.4 mg 11/18/20 09:00 11/20/20 07:22 Tamsulosin 0.4 Mg Cap.Er.24h PO 0.4 mg DAILY JIMMY Administration Theophylline 300 mg 11/18/20 09:00 11/20/20 07:21 Theophylline 24 Hour 300 Mg Cap.Er.24h PO 300 mg DAILY JIMMY Administration Objective - Vital Signs Vital signs: Vital Signs Temp 97.9 F 11/20/20 09:11 Pulse 98 11/20/20 09:11 Resp 16 11/20/20 09:11 BP 150/78 11/20/20 09:11 Pulse Ox 98 11/20/20 09:11 Intake & Output 11/19/20 11/20/20 11/20/20 18:59 06:59 18:59 Intake Total 540 50 Output Total 300 683 Balance 240 -633 Intake: Intake, IV Titration 50 Amount ceFAZolin 2 gm In Sodium 50 Chloride 0.9% 50 ml @ 100 mls/hr IVPB Q8HR [facility] Rx# :[id number] Oral 540 Output: Urine 300 650 Post Void Residual 33 Other: # Voids 3 # Bowel Movements 1 - Exam GENERAL: The patient is alert and oriented x3, not in any acute distress. Well developed, well nourished. HEENT: Pupils are round and equally reacting to light. EOMI. No scleral icterus. No conjunctival pallor. Normocephalic, atraumatic. No pharyngeal erythema. No thyromegaly. CARDIOVASCULAR: S1 and S2 present. No murmurs, rubs, or gallops. -PULMONARY: Chest is clear to auscultation, no wheezing or crackles. Bilateral basal crepitation, more on the right side ABDOMEN: Soft, nontender, nondistended, normoactive bowel sounds. No palpable organomegaly. MUSCULOSKELETAL: No joint swelling or deformity. -EXTREMITIES: No cyanosis, clubbing, bilateral pitting leg edema, significantly more on the left side. Left leg with redness, tenderness and swelling mainly posteriorly through both the leg and the left side NEUROLOGICAL: Gross neurological examination did not reveal any focal deficits. SKIN: No rashes. No petechiae - Labs CBC & Chem 7: 11/19/20 13:35 11/19/20 13:35 Labs: Abnormal Lab Results - Last 24 Hours (Table) 11/19/20 11/19/20 11/20/20 Range/Units 13:35 13:35 05:10 WBC 14.4 H (3.8-10.6) k/uL RBC 3.73 L (4.30-5.90) m/uL Hgb 9.1 L (13.0-17.5) gm/dL Hct 31.2 L (39.0-53.0) % MCH 24.5 L (25.0-35.0) pg MCHC 29.3 L (31.0-37.0) g/dL RDW 17.3 H (11.5-15.5) % Neutrophils # 13.9 H (1.3-7.7) k/uL Lymphocytes # 0.2 L (1.0-4.8) k/uL Sodium 133 L (137-145) mmol/L Chloride 97 L (98-107) mmol/L BUN 30 H (9-20) mg/dL Glucose 209 H (74-99) mg/dL Plasma Lactic Acid Alvaro 2.3 H* (0.7-2.0) mmol/L 11/20/20 11/20/20 Range/Units 08:01 10:52 WBC (3.8-10.6) k/uL RBC (4.30-5.90) m/uL Hgb (13.0-17.5) gm/dL Hct (39.0-53.0) % MCH (25.0-35.0) pg MCHC (31.0-37.0) g/dL RDW (11.5-15.5) % Neutrophils # (1.3-7.7) k/uL Lymphocytes # (1.0-4.8) k/uL Sodium (137-145) mmol/L Chloride (98-107) mmol/L BUN (9-20) mg/dL Glucose (74-99) mg/dL Plasma Lactic Acid Alvaro 2.1 H* 2.6 H* (0.7-2.0) mmol/L Microbiology - Last 24 Hours (Table) 11/17/20 09:35 Blood Culture - Preliminary Blood No Growth after 72 hours 11/17/20 09:35 Blood Culture - Preliminary Blood No Growth after 72 hours Assessment and Plan Assessment: Left leg cellulitis Atrial fibrillation on Xarelto , patient developed RVR and started on Cardizem drip and metoprolol added. acute on chronic congestive heart failure, unknown ejection fraction. Old echo from 2017 showing ejection fraction of 55-60% Left thigh superficial thrombophlebitis. Doppler: no difficulty History of coronary artery disease, status post stent placement Obstructive sleep apnea Chronic bilateral leg swelling with chronic venous insufficiency Chronic gait difficulty secondary to his bilateral leg swelling Plan: This is a pleasant 80 years old male who presents with left leg cellulitis. Continue with cefazolin Follow-up blood culture. Follow-up WBC. Vascular surgery consult. Infectious disease consult Continue with Cardizem, metoprolol, Lasix. Cardiology consult Labs and medication were reviewed.. Continue same treatment. Continue with symptomatic treatment. Resume home medication. Monitor lytes and vitals. DVT and GI prophylaxis. Further recommendationsas per clinical course of the patient DVT prophylaxis: Xarelto GI Prophylaxis: Pepcid PT/OT: Pending Prognosis is guarded
--- NOTE | 2020-11-20 13:09 | CONS ---
CONSULTATION Mr. Reina is a 80-year-old male with known history of coronary artery disease, known history of paroxysmal atrial fibrillation, history of severe osteoarthritis, history of back discomfort, who presented with progressive discomfort in the left foot with swelling and was diagnosed with cellulitis. Cardiology consultation was requested for atrial fibrillation with rapid ventricular response. The patient denies any chest pain. He has mild dyspnea. He does not feel the palpitation but he has a lot of discomfort in the left lower extremity. He denies any dizziness or syncope. He has no PND, no orthopnea. His activity level is somewhat limited. He was seen by Dr. Sanchez and Dr. Hinkle. From the cardiac standpoint, he has been relatively stable. He has a history of hypertension. He is nondiabetic, nonsmoker. MEDICATION: Include prednisone 10 mg daily, theophylline, Xarelto 20 mg daily, Singulair, furosemide 40 mg twice a day, diltiazem CD 180 mg daily, vitamin C and ProAir. REVIEW OF SYSTEMS: RESPIRATORY SYSTEM: Has dyspnea on exertion, history of bronchial asthma. GI SYSTEM: No recent GI bleeding. No peptic ulcer disease. SYSTEM: No dysuria or hematuria. NERVOUS SYSTEM: No history of seizure. PHYSICAL EXAMINATION: He is a 80-year-old male, alert, oriented, in mild discomfort from his leg. Blood pressure running in the 100-118 with a heart rate in the 100-120s. HEAD: Normocephalic. EYES: Sclerae nonicteric. NECK: Good upstroke, no bruit. LUNGS: Clear to auscultation. HEART: Irregular regular, S1, S2. No S3. Tachycardic plus systolic murmur. No diastolic murmur. ABDOMEN: Soft, nontender . EXTREMITIES: With chronic discoloration bilaterally, swelling bilaterally, more on the left side with erythema on the left side and uncomfortable with pain. LAB DATA: White blood cells up to 30.5, down to 14.4. Hemoglobin 9.1. BUN and creatinine 30 and 1.1. Potassium 4.9. His plasma lactic acid is 2.1 today. EKG revealed atrial fibrillation with nonspecific ST-T wave changes. His chest x-ray showed mild interstitial edema. Duplex scan of the lower extremities revealed no evidence of DVT. IMPRESSION: 1. Cellulitis with discomfort in the left lower extremity. 2. Atrial fibrillation with rapid ventricular response, probably worsened by the discomfort and infection. 3. History of coronary artery disease, stable. 4. History of hypertension. 5. Hyperlipidemia, intolerant to statin. RECOMMENDATION: I will continue on the oral Cardizem and I will add the low-dose beta norma to his regimen. We will continue anticoagulation. I will give him intravenous diuretics. Will follow his renal function and depending on his progress further recommendations made. A repeat echocardiogram will be performed. Thank you for this consult. We will follow with you. MMALICIAL / IJN: [id number] /
[2020-11-20] MEDS: METOPROLOL TARTRATE 25 MG TAB PO SCH ×2 (13:41→21:19)
[2020-11-20] MEDS: FUROSEMIDE 10 MG/ML 2 ML VIAL IV SCH ×2 (13:41→21:20)
[2020-11-20 15:54] LABS: INR 1.6 (<1.2); Partial Thromboplastin Time 43.7 sec (22.0-30.0); Prothrombin Time 16.2 sec (9.0-12.0)
[2020-11-20 16:08] LABS: Anisocytosis Slight; HCT 31.3 % (39.0-53.0); HGB 9.1 gm/dL (13.0-17.5); Hypochromasia Marked; MCH 24.4 pg (25.0-35.0); MCV 84.1 fL (80.0-100.0); Mean Platelet Volume 7.9; Platelet Count 227 k/uL (150-450); RBC 3.72 m/uL (4.30-5.90); RDW 17.3 % (11.5-15.5); WBC 13.9 k/uL (3.8-10.6)
--- NOTE | 2020-11-20 16:58 | ECHOF ---
Referral Reason:afib MEASUREMENTS -------- HEIGHT: 172.7 cm WEIGHT: 83.9 kg BP: 150/78 RVIDd: 3.7 cm (< 3.3) IVSd: 1.5 cm (0.6 - 1.1) LVIDd: 4.0 cm (3.9 - 5.3) LVPWd: 1.5 cm (0.6 - 1.1) IVSs: 2.2 cm LVIDs: 3.0 cm LVPWs: 1.8 cm LA Diam: 3.9 cm (2.7 - 3.8) Ao Diam: 4.0 cm (2.0 - 3.7) AV Cusp: 2.5 cm (1.5 - 2.6) MV EXCURSION: 19.523 mm (> 18.000) MV EF SLOPE: 66 mm/s (70 - 150) EPSS: 1.0 cm AV maxP.95 mmHg AV meanP.43 mmHg RAP: 5.00 mmHg RVSP: 33.21 mmHg FINDINGS -------- Atrial fibrillation. This was a technically adequate study. The left ventricular size is normal. There is moderate concentric left ventricular hypertrophy. O verall left ventricular systolic function is low-normal with, an EF between 50 - 55 %. The right ventricle is mildly enlarged. The left atrium is normal in size. The right atrial size is normal. There is mild aortic valve sclerosis. Mild mitral annular calcification present. Mild tricuspid regurgitation present. Right ventricular systolic pressure is normal at < 35 mmHg. The right ventricular systolic pressure, as measured by Doppler, is 33.21mmHg. The pulmonic valve was not well visualized. There is no pulmonic regurgitation present. The aortic root is dilated measuring 4.0cm. IVC Not well visulized. There is no pericardial effusion. CONCLUSIONS -------- 1. Atrial fibrillation. 2. There is moderate concentric left ventricular hypertrophy. 3. Overall left ventricular systolic function is low-normal with, an EF between 50 - 55 %. 4. The right ventricle is mildly enlarged. 5. There is mild aortic valve sclerosis. 6. Mild mitral annular calcification present. 7. Mild tricuspid regurgitation present. 8. The aortic root is dilated measuring 4.0cm. 9. There is no pericardial effusion. MATTRESS INSPECTOR: Greta Hdz [facility]
[2020-11-20 17:16] LABS: Band Neutrophils % 23 %; Lymphocytes # (M) 0.14 k/uL (1.0-4.8); Monocytes # (M) 0.14 k/uL (0-1.0); Neutrophils % (M) 76 %; Nucleated Red Blood Cells 0 /100 WBC (0-0); Total Cells Counted 200
[2020-11-20 17:17] LABS: Polychromasia Present
[2020-11-20] MEDS: CLINDAMYCIN 900 MG in DEXTROSE 5% IN WATER 50 ML IVPB SCH ×4 (18:16→23:59)
--- NOTE | 2020-11-20 19:53 | PN ---
PROGRESS NOTE DATE OF SERVICE: 11/20/2020 REASON FOR FOLLOWUP: Left lower extremity cellulitis. INTERVAL HISTORY: Patient is afebrile. The patient did develop atrial fibrillation with RVR and has been transferred to the telemetry unit, started on Cardizem drip. The patient noticed to having some blistering to the left medial thigh area. He was complaining of pain this morning though seemed to have eased off. Overall swelling and redness of the leg has decreased per the nurse who changed the dressing on the area. Denies having any chest pain or cough. No abdominal pain. No diarrhea. PHYSICAL EXAMINATION: Blood pressure 132/57, pulse 100, temperature 97.9. He is 98% on room air. GENERAL DESCRIPTION: The patient is an elderly male lying in bed in no distress. RESPIRATORY system: Unlabored breathing, decreased breath sounds in the base, with no wheeze. HEART S1, S2. Irregular. ABDOMEN soft, no tenderness. Left medial thigh did have some blistering. No significant or worsening redness or any foul-smelling drainage. LABS: Hemoglobin 9.1, white count 13.9. DIAGNOSTIC IMPRESSION AND PLAN: Patient with acute left lower extremity cellulitis with diffuse swelling and redness likely streptococcal disease. The patient white count came down from 30 to 13,000, shows improvement. Blistering to the thigh is more likely due to fluid overload and could be worsened by the atrial fibrillation with RVR as no evidence of any worsening infection clinically with no worsening cellulitis, he is not running a fever and white count is trending down. This has been explained to the patient and the family. He is on cefazolin. We will add clindamycin for added coverage. Blood culture has been repeated. Care was also discussed in detail with the surgeon on the phone. MMODL / IJN: [id number] /
[2020-11-21] MEDS ORDERED: SODIUM CHLORIDE 0.9% 500 ML 500 ML IV ONE (04:30)
[2020-11-21] MEDS ORDERED: ALBUMIN HUMAN 5% 250 ML in EMPTY BAG 1 BAG IVPB ONE (04:50)
--- NOTE | 2020-11-21 05:08 | P.EN ---
A team note Activated at 4:01 AM. Arrived on the scene shortly after. Reviewed the chart and discussed the case with RN. The patient was admitted for left lower extremity cellulitis and has been receiving IV antibiotics with infectious disease following. The patient was also being treated for an acute CHF exacerbation and was recently diagnosed with A. fib with RVR during this h ospitalization. The patient was noted to have developed hypotension along with altered mentation for which a team was activated. Vital signs at the time of evaluation were BP 77/50, pulse 90, and SpO2 97% on 4 L nasal cannula oxygen with temp 98.7F. The patient was seen at the bedside. He reported feeling well and did not endorse any active complaints. Reported some pain at the site of the cellulitis in the left leg. He denied fevers, chills, chest pain, shortness of breath, nausea, vomiting, abdominal pain. Lactic acid level continues to be elevated. General: Non-toxic, in no acute distress, appears stated age, overweight HEENT: NC/AT, anicteric sclerae, moist conjunctiva, no lid-lag, PERRLA Cardiovascular: S1/S2 wnl, no murmurs, rubs, or gallops Lungs: Bibasilar rales, no wheezing or rhonchi appreciated, normal respiratory effort, no accessory muscle use Abdominal: Soft, non-tender, non-distended, no guarding, rebound, or rigidity Skin: Left lower extremity cellulitis, appears to have improved and receded from the earlier markings Extremities: No edema or contractures Psychiatric: Alert and oriented to person, knows he is in the hospital but unable to name at, oriented to time Neuro: CN II-XII grossly intact, Strength 5/5 in all 4 extremities, Speech intact, Sensation to light touch grossly intact throughout Assessment/plan Hypotension, unclear etiology as patient is currently receiving adequate broad- spectrum coverage for cellulitis -500 mL's of normal saline bolus ordered along with 250 mg of 5% albumin -If patient fails to respond, consider transfer to ICU with IV pressor support -Primary team notified -Discussed with the at the bedside -Monitor lactate Altered mental status -Likely acute illness delirium -Continue with above management
[2020-11-21] MEDS: HYDROmorphone 0.5 MG/0.5 ML SYRINGE IVP PRN ×2 (05:43→12:56)
[2020-11-21 06:46] LABS: INR 1.7 (<1.2); Prothrombin Time 16.9 sec (9.0-12.0)
[2020-11-21 06:56] LABS: Anisocytosis Slight; HCT 28.9 % (39.0-53.0); HGB 8.4 gm/dL (13.0-17.5); Hypochromasia Marked; MCH 24.6 pg (25.0-35.0); MCHC 29.2 g/dL (31.0-37.0); MCV 84.2 fL (80.0-100.0); Mean Platelet Volume 8.4; Platelet Count 215 k/uL (150-450); RBC 3.43 m/uL (4.30-5.90); RDW 17.4 % (11.5-15.5); WBC 10.9 k/uL (3.8-10.6)
[2020-11-21 06:59] LABS: Potassium 5.5 mmol/L (3.5-5.1)
[2020-11-21 08:26] LABS: Band Neutrophils % 4 %; Lymphocytes # (M) 0.22 k/uL (1.0-4.8); Metamyelocytes # (M) 0.11 k/uL (0); Metamyelocytes % 1 %; Monocytes # (M) 0.11 k/uL (0-1.0); Neutrophils % (M) 93 %; Nucleated Red Blood Cells 0 /100 WBC (0-0); Total Cells Counted 200
[2020-11-21 08:44] LABS: C Reactive Protein 44.1 mg/dL (<1.0)
[2020-11-21] MEDS: FAMOTIDINE 20 MG TAB PO SCH (10:06)
[2020-11-21] MEDS: MONTELUKAST 10 MG TAB PO SCH (10:06)
[2020-11-21] MEDS: METOPROLOL TARTRATE 25 MG TAB PO SCH ×2 (10:06→21:49)
[2020-11-21] MEDS: THEOPHYLLINE 24 HOUR 300 MG CAP.ER.24H PO SCH (10:06)
[2020-11-21] MEDS: DILTIAZEM CD 180 MG CAP.ER.24H PO SCH (10:07)
[2020-11-21] MEDS: FUROSEMIDE 10 MG/ML 2 ML VIAL IV SCH (10:07)
[2020-11-21] MEDS: NYSTATIN 100,000 UNIT/ML SUSP 500,000 UNIT/5 ML CUP PO SCH ×4 (10:07→22:09)
[2020-11-21] MEDS: CYANOCOBALAMIN 500 MCG TAB PO SCH (10:07)
[2020-11-21] MEDS: TAMSULOSIN 0.4 MG CAP.ER.24H PO SCH (10:07)
[2020-11-21] MEDS: MAGNESIUM OXIDE 400 MG TAB PO SCH (10:07)
[2020-11-21] MEDS: HEPARIN SOD,PORK IN 0.45% NACL 25,000 UNIT in 0.45% NACL 1 250ML.BAG IV SCH ×2 (10:12→16:55)
[2020-11-21] MEDS: CLINDAMYCIN 900 MG in DEXTROSE 5% IN WATER 50 ML IVPB SCH ×6 (10:59→23:49)
--- NOTE | 2020-11-21 11:04 | PN ---
PROGRESS NOTE Mr. Reina is a 80-year-old male with a known history of significant arthritis, history of atrial fibrillation, history of coronary artery disease who presented with cellulitis in the left lower extremity. He had episode of atrial fibrillation with rapid ventricular response. He is awake, alert, confused at times. He denies any chest pain. His breathing has been stable. He denies any dizziness or palpitation. He continues to have significant discomfort in the left lower extremity with significant edema. He had an echocardiogram yesterday that revealed an ejection fraction of 50% to 55% with mild tricuspid regurgitation. His blood pressure is on the low side. He had chronic low blood pressure, but it was worse yesterday. It could be related to his infectious process. He had a duplex on lower extremities that showed no evidence of left lower extremity DVT. He continues to be at this time on diltiazem CD 180 mg daily, Lasix 40 mg IV q.12 hours, he is on IV heparin, metoprolol 25 mg twice a day, tamsulosin and theophylline. PHYSICAL EXAMINATION: Blood pressure running in the high 90s. His heart rate is down in the 90s. LUNGS: Clear. HEART: Irregular regular S1, S2. No S3 with systolic murmur. No diastolic murmur. No rub. ABDOMEN: Soft and nontender. EXTREMITIES: Dressing on the left lower extremity. Significant edema noted bilaterally with evidence of chronic stasis and discoloration. LAB DATA: Revealed an INR of 1.7, BUN and creatinine 38 and 1.4. His plasma lactic acid is down to 2.0. His potassium is 5.5, hemoglobin is 8.4, which is down compared to yesterday. IMPRESSION: 1. Sepsis with cellulitis on the left leg. 2. Chronic persistent atrial fibrillation with rate under better control. 3. History of coronary artery disease. 4. Chronic kidney disease. 5. History of arthritic pain. 6. Hypotension noted in the past, worse now because of the infectious process. 7. Episode of confusion could be related to the infectious process. RECOMMENDATION: We will continue on the present therapy. We will follow his renal function closely. His renal functions are worse today. I will cut down his diuretic and depending on his progress, further recommendation will be made. MMODL / IJN: [id number] /
--- NOTE | 2020-11-21 11:15 | PN ---
PROGRESS NOTE Mr. Reina is a 80-year-old male with a known history of coronary artery disease, history of atrial fibrillation, history of arthritis who presented with cellulitis, left lower extremity with significant edema and discomfort. He had an episode of atrial fibrillation with rapid ventricular response. His ventricular response is better. He had some episode of hypotension. He denies any chest pain. He has some episode of confusion. He has no clear anginal pain. He continues to be on IV heparin and he has been followed by Dr. Sanchez and Dr. Hinkle. His echocardiogram revealed an ejection fraction of 50% to 55%. He continues to be at this time on diltiazem CD 180 mg daily, metoprolol tartrate 25 mg twice a day. He is on Lasix 20 mg IV q.12 hours, prednisone 10 mg daily. PHYSICAL EXAMINATION: Blood pressure running in the high 90s with a heart rate in 90s. LUNGS: Clear. HEART: Irregularly irregular S1, S2. No S3 with systolic ejection murmur heard at the base. No diastolic murmur. ABDOMEN: Soft, nontender. EXTREMITIES: Dressing on the left lower extremity with edema noted and chronic discoloration bilaterally. LAB DATA: Lab data revealed BUN and creatinine 38 and 1.4, potassium 5.5, INR 1.7, hemoglobin of 8.4. His plasma lactic acid is down to 2. IMPRESSION: 1. Sepsis with cellulitis in the left lower extremity, being treated. 2. Atrial fibrillation with rapid ventricular response. Under better control. 3. History of coronary artery disease. 4. Arthritis. 5. Worsening renal function. RECOMMENDATION: I will cut down the dose of his Lasix to 20 mg once a day. Follow his renal function. His change in mental status and the blood pressure could be worsened by his infectious process. At this time, I see no evidence to suggest an ischemic event. MMODL / IJN: [id number] /
--- NOTE | 2020-11-21 12:30 | P.PN ---
Subjective This is a pleasant 80 years old male past medical history of atrial fibrillation on Xarelto, coronary artery disease status post stent , obstructive sleep apnea. He is a patient of Dr. Velez. Patient is a known case of bilateral leg swelling and difficulty walking however over the last 2 days is becoming more hard for him to wake and more painful At baseline and he uses a walker and the last couple days he had difficulty walking due to his left leg swelling and pain. Also patient reports shortness of breath with exertion for more than a week. However he denies chest pain. He is not on home oxygen. He saw his marble setter Dr. Cancino about one week ago for him visit and they recommended he put a heart monitor also just routine. Patient denies any syncope or dizziness. No abdominal pain, no urinary complaints. Vital showing tachycardia with heart rate around 110, blood pressure 99/75. He is saturating 96% on 2 L Labs showing worsening leukocytosis from 12.7 last month up to 28.8 KG today. His hemoglobin went down to 11.6 down to 10.0 today. While his platelets are normal at 280. INR is 1.4. Sodium 1 potassium are within the reference range, creatinine is stable at 1.1. Plasma lactic that is slightly elevated at 2.4. Liver enzymes not increased Chest x-ray: Correlate for pulmonary venous hypertension and interstitial edema in a patient with pre-existing COPD Venous Doppler: Negative DVT in the left leg [employer] felt patient was started on Zosyn 11/18/2020 Patient with left leg cellulitis, still complaining of from redness and tenderness in his left lower extremity. He is hemodynamically stable. Tachycar eileen is better Labs showing persistent leukocytosis at 22. Creatinine is slightly up to 1.2.going to order a urine analysis and check a bladder scan. Probecalcitonin is elevated at 1.56 Patient remains on Zosyn Horizontal consult infectious disease team as well as. 11/19/2020IV Lasix dose was lowered to 20 mg daily Patient left leg cellulitis is improving gradually. His breathing is quiet and he denies dyspnea or chest pain. Most likely he is a stable. From today, we ordered and follow-up the results. Excess disease team input is appreciated and his antibiotics was switched to cefazolin, nystatin for athlete's foot. Vascular surgery team input is appreciated. No surgical intervention 11/20/2020 Patient this morning developed A. fib and RVR with heart rate in 140s to 150s (heart rate over the last 2 days was running 96-113), no chest pain or dyspnea. Patient somewhat transverse to select 3 S. unit, where he was started on Cardizem drip and marble setter evaluated the patient and continue His Home Dose of Cardizem 180 Mg Daily. Also He Added Metoprolol 25 Mg twice a day and Lasix 20 mg IV twice daily. Other vitals are stable, no labs from today which are still pending. Lactic acid was 2.6. Also patient has Doppler of the lower extremity showing superficial thrombophlebitis. Patient is to continue with cefazolin. 11/21/2020 This is a pleasant 80 years old male who presents with left leg cellulitis and acute CHF. He was treated with antibiotics with cefazolin and IV Lasix 20 mg twice daily, however yesterday he developed A. fib and RVR, he was already on Zyvox to for his history of A. fib, patient wanted to select unit and has been evaluated by marble setter, was started on heparin drip and also Cardizem drip, later on evaluated by marble setter respiratory Cardizem, home dose and added metoprolol. Overnight patient developed low blood pressure and A- team was called, a bolus of normal saline and albumin is ordered, blood pressure is better now. iv lasix dose was lowered to 20 mg iv dailiy by marble setter patient currently on cafazolin and clindamycin added today .creatinine went up to 1.4, mostly secondary to her episode of hypotension. Hemoglobin is slightly low 9.1 down to 8.4 , keep monitoring hemoglobin.leukocytosis improving down to 10.9 K.potential 5.5 Review of systems CONSTITUTIONAL: No fever, no malaise, no fatigue. HEENT: No recent visual problems or hearing problems. Denied any sore throat. CARDIOVASCULAR: No orthopnea, PND, no palpitations, no syncope. PULMONARY: No shortness of breath, no cough, no hemoptysis. GASTROINTESTINAL: No diarrhea, no nausea, no vomiting, no abdominal pain. Normoactive bowel sounds. Active Medications Generic Name Dose Route Start Last Admin Trade Name Freq PRN Reason Stop Dose Admin Hydrocodone Bitart/Acetaminophen 1 each 11/17/20 11:28 11/20/20 21:32 Hydrocodone/Apap 10-325mg 1 Each Tab PO 1 each Q8H PRN Administration Pain Al Hydroxide/Mg Hydroxide 30 ml 11/19/20 17:41 Mag Hydrox/Al Hydrox/Simeth 30 Ml Cup PO Q4HR PRN GI Upset Albuterol Sulfate 2.5 mg 11/17/20 11:28 Albuterol Nebulized 2.5 Mg/3 Ml INHALATION RT-Q6H PRN Shortness Of Breath Cyanocobalamin 500 mcg 11/18/20 09:00 11/21/20 10:07 Cyanocobalamin 500 Mcg Tab PO 500 mcg DAILY JIMMY Administration Diltiazem HCl 180 mg 11/20/20 11:00 11/21/20 10:07 Diltiazem Cd 180 Mg Cap.Er.24h PO 180 mg DAILY JIMMY Administration Epinephrine HCl 0.3 mg 11/17/20 11:28 Epinephrine 1 Mg/Ml 1 Ml Vial IM ONCE PRN Anaphylaxis Famotidine 20 mg 11/19/20 09:00 11/21/20 10:06 Famotidine 20 Mg Tab PO 20 mg DAILY JIMMY Administration Furosemide 20 mg 11/22/20 09:00 Furosemide 10 Mg/Ml 2 Ml Vial IV DAILY JIMMY Heparin Sodium (Porcine) 0 unit 11/20/20 14:14 Heparin Sodium 1,000 Un/Ml (10ml Vl) IV PER PROTOCOL PRN Low PTT Protocol Hydromorphone HCl 0.5 mg 11/17/20 11:06 11/21/20 05:43 Hydromorphone 0.5 Mg/0.5 Ml Syringe IVP 0.5 mg Q4HR PRN Administration Pain Cefazolin Sodium 2 gm/ Sodium 50 mls @ 100 mls/hr 11/19/20 00:00 11/21/20 10:21 Chloride IVPB 100 mls/hr Q8HR JIMMY Administration Heparin Sodium/Sodium Chloride 250 mls @ 10 mls/hr 11/20/20 14:15 11/21/20 10:12 25,000 unit/ Sodium Chloride IV 11.917 units/kg/hr .Q24H JIMMY 10 mls/hr Administration Protocol 11.917 UNITS/KG/HR Clindamycin Phosphate 900 mg/ 56 mls @ 50 mls/hr 11/20/20 17:15 11/21/20 10:59 Dextrose/Water IVPB 50 mls/hr Q8HR JIMMY Administration Magnesium Oxide 400 mg 11/18/20 09:00 11/21/20 10:07 Magnesium Oxide 400 Mg Tab PO 400 mg DAILY JIMMY Administration Metoprolol Tartrate 25 mg 11/20/20 11:00 11/21/20 10:06 Metoprolol Tartrate 25 Mg Tab PO 25 mg BID JIMMY Administration Montelukast Sodium 10 mg 11/18/20 09:00 11/21/20 10:06 Montelukast 10 Mg Tab PO 10 mg DAILY JIMMY Administration Nystatin 1 applic 11/19/20 09:00 11/20/20 21:20 Nystatin 100,000 Unit/Gm Powd 15 Gm TOPICAL 1 applic BID JIMMY Administration Nystatin 500,000 unit 11/19/20 09:00 11/21/20 10:07 Nystatin 100,000 Unit/Ml Susp 500,000 Unit/5 Ml Cup PO 500,000 unit QID JIMMY Administration Prednisone 10 mg 11/18/20 09:00 11/20/20 07:21 Prednisone 10 Mg Tab PO 10 mg DAILY JIMMY Administration Silver Sulfadiazine 1 applic 11/20/20 21:00 11/20/20 21:20 Silver Sulfadiazine 1% Cream 25 Gm Tube TOPICAL 1 applic HS JIMMY Administration Tamsulosin HCl 0.4 mg 11/18/20 09:00 11/21/20 10:07 Tamsulosin 0.4 Mg Cap.Er.24h PO 0.4 mg DAILY JIMMY Administration Theophylline 300 mg 11/18/20 09:00 11/21/20 10:06 Theophylline 24 Hour 300 Mg Cap.Er.24h PO 300 mg DAILY JIMMY Administration Objective - Vital Signs Vital signs: Vital Signs Temp 98.7 F 11/21/20 01:45 Pulse 96 11/21/20 01:45 Resp 20 11/21/20 01:45 BP 90/53 11/21/20 06:30 Pulse Ox 96 11/21/20 04:19 Intake & Output 11/20/20 11/21/20 11/21/20 18:59 06:59 18:59 Intake Total 0 Output Total 500 500 Balance -500 -500 0 Weight 88.5 kg Intake: Oral 0 Output: Urine 500 500 Other: Voiding Method Urinal # Voids 1 # Bowel Movements 1 - Exam GENERAL: The patient is alert and oriented x3, not in any acute distress. Well developed, well nourished. HEENT: Pupils are round and equally reacting to light. EOMI. No scleral icterus. No conjunctival pallor. Normocephalic, atraumatic. No pharyngeal erythema. No thyromegaly. CARDIOVASCULAR: S1 and S2 present. No murmurs, rubs, or gallops. -PULMONARY: Chest is clear to auscultation, no wheezing or crackles. Bilateral basal crepitation, more on the right side ABDOMEN: Soft, nontender, nondistended, normoactive bowel sounds. No palpable organomegaly. MUSCULOSKELETAL: No joint swelling or deformity. -EXTREMITIES: No cyanosis, clubbing, bilateral pitting leg edema, significantly more on the left side. Left leg with redness, tenderness and swelling mainly posteriorly through both the leg and the left side NEUROLOGICAL: Gross neurological examination did not reveal any focal deficits. SKIN: No rashes. No petechiae - Labs CBC & Chem 7: 11/21/20 06:06 11/21/20 06:06 Labs: Abnormal Lab Results - Last 24 Hours (Table) 11/20/20 11/20/20 11/20/20 Range/Units 13:48 15:15 15:15 WBC 13.9 H (3.8-10.6) k/uL RBC 3.72 L (4.30-5.90) m/uL Hgb 9.1 L (13.0-17.5) gm/dL Hct 31.3 L (39.0-53.0) % MCH 24.4 L (25.0-35.0) pg MCHC 29.0 L (31.0-37.0) g/dL RDW 17.3 H (11.5-15.5) % Neutrophils # (Manual) 13.70 H (1.3-7.7) k/uL Lymphocytes # (Manual) 0.14 L (1.0-4.8) k/uL Metamyelocytes # (Man) (0) k/uL PT 16.2 H (9.0-12.0) sec INR 1.6 H (<1.2) APTT 43.7 H (22.0-30.0) sec Sodium (137-145) mmol/L Potassium (3.5-5.1) mmol/L BUN (9-20) mg/dL Creatinine (0.66-1.25) mg/dL Glucose (74-99) mg/dL Plasma Lactic Acid Alvaro 2.2 H* (0.7-2.0) mmol/L Calcium (8.4-10.2) mg/dL C-Reactive Protein (<1.0) mg/dL 11/20/20 11/20/20 11/20/20 Range/Units 17:38 20:11 21:51 WBC (3.8-10.6) k/uL RBC (4.30-5.90) m/uL Hgb (13.0-17.5) gm/dL Hct (39.0-53.0) % MCH (25.0-35.0) pg MCHC (31.0-37.0) g/dL RDW (11.5-15.5) % Neutrophils # (Manual) (1.3-7.7) k/uL Lymphocytes # (Manual) (1.0-4.8) k/uL Metamyelocytes # (Man) (0) k/uL PT (9.0-12.0) sec INR (<1.2) APTT 38.6 H (22.0-30.0) sec Sodium (137-145) mmol/L Potassium (3.5-5.1) mmol/L BUN (9-20) mg/dL Creatinine (0.66-1.25) mg/dL Glucose (74-99) mg/dL Plasma Lactic Acid Alvaro 2.7 H* 2.5 H* (0.7-2.0) mmol/L Calcium (8.4-10.2) mg/dL C-Reactive Protein (<1.0) mg/dL 11/21/20 11/21/20 11/21/20 Range/Units 00:43 06:06 06:06 WBC 10.9 H (3.8-10.6) k/uL RBC 3.43 L (4.30-5.90) m/uL Hgb 8.4 L (13.0-17.5) gm/dL Hct 28.9 L (39.0-53.0) % MCH 24.6 L (25.0-35.0) pg MCHC 29.2 L (31.0-37.0) g/dL RDW 17.4 H (11.5-15.5) % Neutrophils # (Manual) 10.50 H (1.3-7.7) k/uL Lymphocytes # (Manual) 0.22 L (1.0-4.8) k/uL Metamyelocytes # (Man) 0.11 H (0) k/uL PT (9.0-12.0) sec INR (<1.2) APTT (22.0-30.0) sec Sodium 134 L (137-145) mmol/L Potassium 5.5 H (3.5-5.1) mmol/L BUN 38 H (9-20) mg/dL Creatinine 1.40 H (0.66-1.25) mg/dL Glucose 132 H (74-99) mg/dL Plasma Lactic Acid Alvaro 2.4 H* (0.7-2.0) mmol/L Calcium 8.0 L (8.4-10.2) mg/dL C-Reactive Protein 44.1 H (<1.0) mg/dL 11/21/20 11/21/20 Range/Units 06:06 06:06 WBC (3.8-10.6) k/uL RBC (4.30-5.90) m/uL Hgb (13.0-17.5) gm/dL Hct (39.0-53.0) % MCH (25.0-35.0) pg MCHC (31.0-37.0) g/dL RDW (11.5-15.5) % Neutrophils # (Manual) (1.3-7.7) k/uL Lymphocytes # (Manual) (1.0-4.8) k/uL Metamyelocytes # (Man) (0) k/uL PT 16.9 H (9.0-12.0) sec INR 1.7 H (<1.2) APTT (22.0-30.0) sec Sodium (137-145) mmol/L Potassium (3.5-5.1) mmol/L BUN (9-20) mg/dL Creatinine (0.66-1.25) mg/dL Glucose (74-99) mg/dL Plasma Lactic Acid Alvaro 2.3 H* (0.7-2.0) mmol/L Calcium (8.4-10.2) mg/dL C-Reactive Protein (<1.0) mg/dL Microbiology - Last 24 Hours (Table) 11/17/20 09:35 Blood Culture - Preliminary Blood No Growth after 96 hours 11/17/20 09:35 Blood Culture - Preliminary Blood No Growth after 96 hours 11/20/20 05:10 Blood Culture - Preliminary Blood No Growth after 24 hours Assessment and Plan Assessment: Left leg cellulitis Atrial fibrillation onheparin drip , patient developed RVR and started on Cardizem and metoprolol added. acute on chronic congestive heart failure, unknown ejection fraction. Old echo from 2017 showing ejection fraction of 55-60% acute kidney injury mostly secondary to episode of hypotension. Left thigh superficial thrombophlebitis. Doppler: no difficulty History of coronary artery disease, status post stent placement Obstructive sleep apnea Chronic bilateral leg swelling with chronic venous insufficiency Chronic gait difficulty secondary to his bilateral leg swelling Plan: This is a pleasant 80 years old male who presents with left leg cellulitis. Continue with cefazolin Follow-up blood culture. Follow-up WBC. Vascular surgery consult. Infectious disease consult Continue with Cardizem, metoprolol, Lasix. Cardiology consult monitor creatinine and potassium level, check bladder scan, nephrology consult. Labs and medication were reviewed.. Continue same treatment. Continue with symptomatic treatment. Resume home medication. Monitor lytes and vitals. DVT and GI prophylaxis. Further recommendationsas per clinical course of the patient DVT prophylaxis: heparin drip GI Prophylaxis: Pepcid PT/OT: Pending Prognosis is guarded
[2020-11-21] MEDS: predniSONE 10 MG TAB PO SCH (12:56)
[2020-11-21] MEDS: NYSTATIN 100,000 UNIT/GM POWD 15 GM TOPICAL SCH ×2 (12:57→21:48)
--- NOTE | 2020-11-21 14:32 | XR ---
EXAMINATION TYPE: XR chest 1V portable DATE OF EXAM: 11/21/2020 COMPARISON: November 17, 2020 HISTORY: Cellulitis TECHNIQUE: Single view FINDINGS: Heart is enlarged. There is right shoulder prosthesis. There are chest leads. There is incr eased interstitial pulmonary density in both lungs. There is mild pulmonary congestion. There is slig ht blunting of the costophrenic angles. IMPRESSION: Mild congestive heart failure with small pleural effusions. Pulmonary congestion increase d slightly compared to recent exam.
[2020-11-21] MEDS: HYDROcodone/APAP 10-325MG 1 EACH TAB PO PRN (15:04)
--- NOTE | 2020-11-21 15:13 | CT ---
EXAMINATION TYPE: CT lower extremity LT wo con DATE OF EXAM: 11/21/2020 COMPARISON: None HISTORY: CT DLP: mGycm Automated exposure control for dose reduction was used. Images obtained from the distal femoral metaphysis to the bottom of the foot without contrast. FINDINGS: There is diffuse subcutaneous edema around the entire lower leg. There is no discrete drainable fluid collection identified. There is a left knee prosthesis. There is no evidence of any soft tissue air. There is muscle atrophy. The tibia and fibula appear intact. I see no bony destructive process. Ther e is some vascular calcification. There is plantar calcaneal spurring. There is some osteoarthritic c hanges in the intertarsal joints. There is spurring at the talonavicular joint. IMPRESSION: Extensive subcutaneous edema around the lower leg. No soft tissue air seen to suggest gas gangrene. Atherosclerotic vascular disease. Hypertrophic degenerative changes in the hindfoot.
--- NOTE | 2020-11-21 15:54 | CT ---
EXAMINATION TYPE: CT chest wo con DATE OF EXAM: 11/21/2020 COMPARISON: 08/19/2015 HISTORY: H/O atelctasis CT DLP: 573.6 mGycm Automated exposure control for dose reduction was used. Images obtained from the thoracic inlet to the diaphragm without contrast. There is airspace infiltrate and atelectasis at both lung bases and more on the right side. There is minimal pleural thickening at the lung bases and pleural fluid. There is also some mild infiltrate in the left upper lobe. Heart is top normal in size. There is no pericardial effusion. There is coronar y artery calcification. There is no mediastinal adenopathy. There are no hilar masses. Thoracic aorta is atheromatous. 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 There is right shoulder prosthe sis. The thoracic spine is intact. There is no significant compression deformity. There is mild thora cic dextroscoliosis. I see no evidence of a rib fracture. Upper abdominal soft tissues appear intact. There are left renal cortical cysts. IMPRESSION: There is bilateral pulmonary infiltrates and atelectasis which are essentially new compared to old ex am. There is 4 cm aneurysm of the ascending aorta without significant change.
--- NOTE | 2020-11-21 18:29 | PN ---
PROGRESS NOTE DATE OF SERVICE: 11/21/2020. REASON FOR FOLLOWUP: Left lower extremity cellulitis. INTERVAL HISTORY: Patient remains to be afebrile. No fever recorded in last 3 days. The patient did have evidence of hypertension this morning for which A team was called. The patient received fluid bolus. Patient is slightly sleepy, lethargic. However, the mentioned did not sleep last night. The patient is currently not on any pressor support. The patient was sleepy and did not provide any history. No vomiting or diarrhea or any other changes reported. PHYSICAL EXAMINATION: Blood pressure 92/53 with a pulse of 91, temperature 97.5. He is 95% on 4 L nasal cannula. General description is an elderly male lying in bed in no distress. Respiratory system: Unlabored breathing. Few crackles at bases bilaterally. Heart S1-S2 regular rate and rhythm. Abdomen soft, no tenderness. Extremities: The patient did have a 3+ edema feet bilateral lower extremity. Left leg did have swelling. Redness has decreased, especially the thigh area. No more blister formation. LABS: Hemoglobin is 8.4. White count normal at 10.9, BUN of 38, creatinine 1.40. Lactic acid is down to 2.0. The patient's chest x-ray with evidence of cardiomegaly and effusion. Did have a CT of the leg, no soft tissues seen to suggest ischemia and no abscess. DIAGNOSTIC IMPRESSION AND PLAN: Patient with extensive left lower extremity cellulitis with diffuse swelling and redness likely streptococcal disease in this patient who did have evidence of athlete's foot. The patient has responded to cefazolin and clindamycin as the patient is afebrile. The patient's white count has normalized. He came with white count of 30,000, the patient blood cultures negative. Worsening of his condition could be more likely explained on the basis of cardiac condition. The patient did have atrial fibrillation with RVR and did have a 3+ edema feet both legs and not just one leg. This was explained in detail to the patient. Clinically not behaving as a necrotizing infection. In view of the patient's improvement as far as the redness is concerned and the white count normalizing with cefazolin, I will keep on these antibiotic, more aggressive underlying cardiac condition. Multiple family members at the bedside. All those questions were all answered in layman's terms and in the presence of Dr. Hinkle, the surgeon on the case and was discussed with as well as Dr. Padilla. Time spent has been 35 minutes. MMODL / IJN: [id number] /
--- NOTE | 2020-11-21 19:54 | PN ---
PROGRESS NOTE This patient is a 80-year-old gentleman who came with marked cellulitis of both lower extremities, more on the left than on the right. Patient had a venous ultrasound, showed no DVT noted in the deep system. Then repeat ultrasound was concern about thrombophlebitis and report came back as small in caliber. No dilatation. There is a possibility of mild thrombophlebitis. The patient is under care of Infectious Disease. His blood count from 30,000 became to 10,000 and the patient is on IV antibiotic. Today, the patient has been complaining of more pain on the left leg and there is some redness noted on the dorsal aspect of the foot with cellulitis and medial aspect of the thigh there is some redness noted. The CT of the leg which shows no evidence of . No evidence of abscess formation. There is a fluid collection noted in the left lower extremity. Discussed with the patient and the family. The patient had a chest x-ray which shows bilateral pulmonary infiltrate which is new compared to the previous one. Discussed with the family and Internal Medicine. Most likely patient they want transferred to the tertiary center. MMODL / IJN: [id number] /
[2020-11-22] MEDS: HYDROmorphone 0.5 MG/0.5 ML SYRINGE IVP PRN ×4 (04:46→17:55)
[2020-11-22] MEDS: HEPARIN SOD,PORK IN 0.45% NACL 25,000 UNIT in 0.45% NACL 1 250ML.BAG IV SCH (07:00)
[2020-11-22] MEDS: FUROSEMIDE 10 MG/ML 2 ML VIAL IV SCH ×2 (10:29→11:35)
[2020-11-22] MEDS: CLINDAMYCIN 900 MG in DEXTROSE 5% IN WATER 50 ML IVPB SCH ×2 (10:46)
[2020-11-22] MEDS: METOPROLOL TARTRATE 25 MG TAB PO SCH ×2 (11:19→21:02)
[2020-11-22] MEDS: DILTIAZEM CD 180 MG CAP.ER.24H PO SCH ×3 (11:19→19:29)
[2020-11-22] MEDS: THEOPHYLLINE 24 HOUR 300 MG CAP.ER.24H PO SCH ×2 (11:20→14:46)
[2020-11-22] MEDS: CEFEPIME 2 GM in SODIUM CHLORIDE 0.9% 100 ML IVPB SCH ×2 (11:28→22:12)
[2020-11-22 11:30] LABS: Anisocytosis Slight; HCT 26.4 % (39.0-53.0); HGB 8.1 gm/dL (13.0-17.5); Hypochromasia Marked; MCH 25.3 pg (25.0-35.0); MCHC 30.7 g/dL (31.0-37.0); MCV 82.2 fL (80.0-100.0); Mean Platelet Volume 8.6; Platelet Count 182 k/uL (150-450); RBC 3.21 m/uL (4.30-5.90); RDW 17.5 % (11.5-15.5); WBC 11.5 k/uL (3.8-10.6)
[2020-11-22] MEDS: HYDROcodone/APAP 10-325MG 1 EACH TAB PO PRN (11:49)
[2020-11-22] MEDS ORDERED: DAPTOmycin 500 MG in SODIUM CHLORIDE 0.9% 50 ML IVPB SCH (12:00)
[2020-11-22] MEDS: HEPARIN SODIUM 1,000 UN/ML (10ML VL) IV PRN ×2 (12:04→19:28)
[2020-11-22 12:15] LABS: Calcium 8.3 mg/dL (8.4-10.2); Potassium 5.2 mmol/L (3.5-5.1)
--- NOTE | 2020-11-22 14:20 | PN ---
PROGRESS NOTE DATE OF SERVICE: 11/22/2020 REASON FOR FOLLOWUP: Left lower extremity cellulitis. INTERVAL HISTORY: Patient remains to be afebrile. The patient remains to be lethargic. Patient did have significant swelling to lower extremity both bilateral legs. Some blister formation to the left foot. The patient was lethargic and unable to provide any history. Complaining of pain in the bilateral lower leg areas. PHYSICAL EXAMINATION: Blood pressure 124/62 with pulse 97, temperature 98.5. He is 97% on 4 L nasal cannula. General description is an elderly male lying in in no distress. Respiratory system: Unlabored breathing, decreased breath sounds in the bases. Heart S1, S2 regular rate and rhythm. Abdomen: Soft. No tenderness. The patient did have 3+ edema feet bilateral lower extremity with some numbness to the left leg and blister formation of the foot. LABS: Hemoglobin 8.1, white count 9.5. DIAGNOSTIC IMPRESSION AND PLAN: Patient with acute left lower extremity cellulitis in this patient who did have initial improvement subsequent worsening of clinical condition after the patient went into atrial fibrillation with RVR. The patient now has significant swelling to the bilateral lower extremity, likely fluid overload status and is being monitored by Cardiology. I do not think the patient has antibiotic failure as the patient is afebrile and his white count normalized. In view of the concern by the admitting physician, antibiotic adjusted to daptomycin and cefepime. However, he will need more aggressive renal management to cut down swelling in the leg that will help cellulitis as well. There were multiple family members. Questions were answered in the meantime. MMODL / IJN: [id number] /
--- NOTE | 2020-11-22 14:40 | PN ---
PROGRESS NOTE ADDENDUM: Small saphenous vein and CT of the leg which shows no evidence of air. MMODL / IJN: [id number] /
[2020-11-22] MEDS: FAMOTIDINE 20 MG TAB PO SCH (14:45)
[2020-11-22] MEDS: predniSONE 10 MG TAB PO SCH (14:45)
[2020-11-22] MEDS: MONTELUKAST 10 MG TAB PO SCH (14:45)
[2020-11-22] MEDS: NYSTATIN 100,000 UNIT/ML SUSP 500,000 UNIT/5 ML CUP PO SCH ×4 (14:45→22:00)
[2020-11-22] MEDS: NYSTATIN 100,000 UNIT/GM POWD 15 GM TOPICAL SCH ×2 (14:45→21:03)
[2020-11-22] MEDS: TAMSULOSIN 0.4 MG CAP.ER.24H PO SCH (14:45)
[2020-11-22] MEDS: CYANOCOBALAMIN 500 MCG TAB PO SCH (14:45)
[2020-11-22] MEDS: MAGNESIUM OXIDE 400 MG TAB PO SCH (14:45)
--- NOTE | 2020-11-22 15:22 | US ---
EXAMINATION TYPE: US kidneys/renal and bladder DATE OF EXAM: 11/22/2020 COMPARISON: CT abdomen and pelvis November 07, 2020 CLINICAL HISTORY: RF. renal failure, h/o right nephrectomy EXAM MEASUREMENTS: Right Kidney: Surgically absent Left Kidney: 15.0 x 5.4 x 8.2 cm Right Kidney: Surgically absent Left Kidney: enlarged, multiple cysts largest = 3.8cm, 1.4cm mid pole stone seen Bladder: morales cath Right kidney surgically absent. Morales catheter decompresses bladder. Left kidney is enlarged in size with scattered thin walled cysts measuring up to 3.8 cm long axis pole level. There is 1.1 cm hyperec hoic shadowing focus suspected calculus mid to lower pole level left kidney. No left-sided hydronephr osis. IMPRESSION: No left sided hydronephrosis.
--- NOTE | 2020-11-22 15:32 | P.CNPUL ---
History of Present Illness Consult date: 11/22/20 Requesting physician: Pepe Padilla Reason for consult: other Chief complaint: Sepsis, cellulitis, CHF, atrial fibrillation. History of present illness: Pulmonary consult dated 11/22/2020. 80-year-old male who presents to the emergency department on November 17. He came with complaints of left leg pain and swelling and cellulitis of the left lower extremity. He does have a history of chronic atrial fibrillation. Since she's been here, his overall condition has worsened. He is much less alert and oriented when he first came in. I saw him in his room 374. His and daughter were in the room with him. The patient's currently on IV heparin. He is receiving supplemental oxygen. Apparently the family is planning to have her transferred to [facility]. Apparently no better yet available. In addition to the above, he has a history of atrial fibrillation, asthma, coronary disease, osteoarthritis, and sleep apnea. He also has a history of cataracts, and has only a left kidney. He has had a heart catheterization with stent as well as an ablation. Currently, white count 11.5, hemoglobin 8.1, hematocrit 26.4, and platelet count 182,000. PTT is 40.6. Sodium 134, potassium 5.2, chlorides 98, CO2 27, anion gap 9, BUN and creatinine were 51 and 1.58. Lactic acid initially was 2.4. All his culture data including blood and left leg cultures are negative thus far. Chest CT suggests bilateral pulmonary infiltrates and atelectasis, which are new compared to the older examination. Chest x-rays consistent with mild fluid overload and small effusions. Review of Systems REVIEW OF SYSTEMS: CONSTITUTIONAL: [Negative.] NEUROLOGIC: [ Negative.] HEENT: [ Negative.] CARDIAC: [Negative.] PULMONARY: [Negative.] GI: [Negative.] : [Negative.] RHEUMATOLOGIC: [ Negative.] IMMUNOLOGIC: [ Negative.] ENDOCRINE: [Negative. ] DERMATOLOGIC: Left leg cellulitis with maceration of tissues and blister formation. Past Medical History Past Medical History: Atrial Fibrillation, Asthma, Coronary Artery Disease (CAD), Chest Pain / Angina, Eye Disorder, Osteoarthritis (OA), Sleep Apnea/CPAP/BIPAP Additional Past Medical History / Comment(s): HX CATARACTS. ONLY HAS LEFT KIDNEY- RT ONE REMOVED "BECAUSE IT WAS DETERIORATING". USES CPAP, HX POLIO LT ARM.. History of Any Multi-Drug Resistant Organisms: MRSA Date of last positivie culture/infection: 12/29/19 MDRO Source:: LEG MRSA Past Surgical History: Ablation, Appendectomy, Heart Catheterization With Stent, Hernia Repair, Joint Replacement, Orthopedic Surgery Additional Past Surgical History / Comment(s): RT KIDNEY REMOVED. EXC CATARACTS. LEFT HAND THUMB AND INDEX FINGER SX ON MUSCLE, LEFT KNEE REPLACEMENT, REVERSE TOTAL RT Shoulder. PTCA W/ STENT X2.ALEXANDER, CARDIVERSION, cervical cage neck, and back vertaflex Past Anesthesia/Blood Transfusion Reactions: No Reported Reaction Additional Past Anesthesia/Blood Transfusion Reaction / Comment(s): "has never received blood" Date of Last Stent Placement:: 2010 Smoking Status: Former smoker - Past Family History Father Family Medical History: CVA/TIA Mother Family Medical History: Cancer Additional Family Medical History / Comment(s): BREAST CANCER Medications and Allergies Home Medications Medication Instructions Recorded Confirmed Type Omeprazole [PriLOSEC] 20 mg PO AC-BRKFST 06/24/15 11/17/20 History predniSONE 10 mg PO DAILY 06/24/15 11/17/20 History Rivaroxaban [Xarelto] 20 mg PO DAILY 08/19/15 11/17/20 History Tamsulosin [Flomax] 0.4 mg PO DAILY 02/12/17 11/17/20 History Cholecalciferol [Vitamin D3 (25 1,000 unit PO DAILY tab 02/16/17 11/17/20 Rx Mcg = 1000 Iu)] Cyanocobalamin [Vitamin B-12] 500 mcg PO DAILY tab 02/16/17 11/17/20 Rx Diltiazem Cd [Cardizem CD] 180 mg PO DAILY cap 02/16/17 11/17/20 Rx Montelukast [Singulair] 10 mg PO DAILY tab 02/16/17 11/17/20 Rx Theophylline 24 Hour [Topher-24] 300 mg PO DAILY cap 02/16/17 11/17/20 Rx Ascorbic Acid [Vitamin C] 1,000 mg PO DAILY 04/22/18 11/17/20 History Magnesium 200 mg PO DAILY 04/22/18 11/17/20 History Albuterol Sulfate [Proair Hfa] 1 - 2 puff INHALATION RT-Q6H PRN 11/07/20 0 11/17/20 History Beclomethasone Dip 80 Mcg/Puff 2 puff INHALATION RT-DAILY 11/07/20 11/17/20 History [Qvar 80 mcg] Budesonide/Glycopyr/Formoterol 2 puff INHALATION RT-DAILY 11/07/20 11/17/20 H istory [Breztri Aerosphere Inhaler] EPINEPHrine (Auto Inject) [Epipen] 0.3 mg IM ONCE PRN 11/07/20 11/17/20 History HYDROcodone/APAP 10-325MG [[place] 1 tab PO Q8H PRN 11/07/20 11/17/20 History 10-325] Furosemide [Lasix] 40 mg PO BID@0900,1600 4 Days #8 11/08/20 11/17/20 Rx tab Clotrimazole Chato [Mycelex 10 mg MUCOUS MEM 5XD 11/17/20 11/17/20 History Chato] Allergies Allergy/AdvReac Type Severity Reaction Status Date / Time aspirin Allergy Rash/Hives Verified 11/17/20 09:51 Iodinated Contrast Media Allergy Dyspnea, Verified 11/17/20 09:51 [Iodinated Contrast Media - HIVES IV Dye] CHLORINE Allergy Dyspnea Uncoded 11/17/20 08:57 Physical Exam Osteopathic Statement: *. No significant issues noted on an osteopathic structural exam other than those noted in the History and Physical/Consult. Vitals: Vital Signs Temp Pulse Pulse Resp BP Pulse Ox 11/22/20 11:18 80 16 124/62 97 11/22/20 08:00 97 16 93/55 96 11/22/20 04:00 98.5 F 95 18 93/54 96 11/21/20 23:30 97.8 F 95 18 105/60 97 11/21/20 20:00 98.9 F 85 20 98/57 96 11/21/20 16:00 98.6 F 96 20 91/54 96 Intake and Output 11/22/20 11/22/20 11/22/20 06:59 14:59 22:59 Intake Total 438 Balance 438 Intake: Intake, IV Titration 258 Amount Heparin Sod,Pork in 0.45% 258 NaCl 25,000 unit In 0.45 % NaCl 1 250ml.bag @ 11. 917 UNITS/KG/HR 10 mls/hr IV .Q24H [facility] Rx#: [id number] Oral 180 Other: Voiding Method Urinal Indwelling Catheter # Voids 0 # Bowel Movements 0 Weight 88 kg No acute distress, confused and disoriented. Nasal O2 2 L, with saturation 97%. HEENT examination is grossly unremarkable. Neck supple. Full range of motion. No adenopathy thyromegaly or neck vein distention. Cardiovascular examination reveals an irregular rhythm and rate. S1-S2 normal. No S3 or S4. No discernible murmur noted. Lungs reveal scattered rhonchi. No wheezes or crackles. Breath sounds equal bilaterally. He does not take deep breaths. Abdomen soft bowel sounds are heard. No masses or tenderness. Extremities significant cellulitis of the left lower extremity, but tissue maceration, blister formation, edema, and erythema.. Skin as above. Neurologic examination reveals this patient to be very confused. Results - Laboratory Findings CBC and BMP: 11/22/20 10:35 11/22/20 10:35 PT/INR, D-dimer PT 16.9 sec (9.0-12.0) H 11/21/20 06:06 INR 1.7 (<1.2) H 11/21/20 06:06 Abnormal lab findings: Abnormal Labs 11/17/20 11/17/20 11/17/20 09:35 09:35 09:35 WBC 28.8 H RBC 3.89 L Hgb 10.0 L D Hct 31.3 L MCH MCHC RDW 17.7 H Immature Gran # Neutrophils # 28.1 H Neutrophils # (Manual) Lymphocytes # 0.3 L Lymphocytes # (Manual) Monocytes # Metamyelocytes # (Man) PT 14.3 H INR 1.4 H APTT 37.0 H Sodium Potassium Chloride Carbon Dioxide BUN 34 H Creatinine Glucose 197 H Plasma Lactic Acid Alvaro Calcium C-Reactive Protein Total Protein 5.2 L Albumin 2.6 L Procalcitonin Urine Protein Urine Glucose (UA) Urine Mucus 11/17/20 11/17/20 11/17/20 09:35 13:02 21:30 WBC 30.5 H 23.8 H RBC 3.66 L 3.84 L Hgb 9.3 L 9.7 L Hct 29.5 L 31.6 L MCH MCHC 30.6 L RDW 17.6 H 17.5 H Immature Gran # Neutrophils # 23.3 H Neutrophils # (Manual) 28.90 H Lymphocytes # 0.2 L Lymphocytes # (Manual) 0.61 L Monocytes # Metamyelocytes # (Man) 0.31 H PT INR APTT Sodium Potassium Chloride Carbon Dioxide BUN Creatinine Glucose Plasma Lactic Acid Alvaro 2.4 H* Calcium C-Reactive Protein Total Protein Albumin Procalcitonin Urine Protein Urine Glucose (UA) Urine Mucus 11/18/20 11/18/20 11/18/20 05:32 05:32 05:32 WBC 22.91 H RBC 3.54 L Hgb 8.7 L Hct 30.6 L MCH 24.6 L MCHC 28.4 L RDW 19.2 H Immature Gran # 0.20 H Neutrophils # 22.13 H Neutrophils # (Manual) Lymphocytes # 0.28 L Lymphocytes # (Manual) Monocytes # 0.12 L Metamyelocytes # (Man) PT INR APTT Sodium 134 L Potassium Chloride Carbon Dioxide 31 H BUN 31 H Creatinine 1.27 H Glucose 130 H Plasma Lactic Acid Alvaro Calcium 7.8 L C-Reactive Protein Total Protein Albumin Procalcitonin 1.56 H Urine Protein Urine Glucose (UA) Urine Mucus 11/18/20 11/19/20 11/19/20 17:44 13:35 13:35 WBC 14.4 H RBC 3.73 L Hgb 9.1 L Hct 31.2 L MCH 24.5 L MCHC 29.3 L RDW 17.3 H Immature Gran # Neutrophils # 13.9 H Neutrophils # (Manual) Lymphocytes # 0.2 L Lymphocytes # (Manual) Monocytes # Metamyelocytes # (Man) PT INR APTT Sodium 133 L Potassium Chloride 97 L Carbon Dioxide BUN 30 H Creatinine Glucose 209 H Plasma Lactic Acid Alvaro Calcium C-Reactive Protein Total Protein Albumin Procalcitonin Urine Protein 1+ H Urine Glucose (UA) Trace H Urine Mucus Rare H 11/20/20 11/20/20 11/20/20 05:10 08:01 10:52 WBC RBC Hgb Hct MCH MCHC RDW Immature Gran # Neutrophils # Neutrophils # (Manual) Lymphocytes # Lymphocytes # (Manual) Monocytes # Metamyelocytes # (Man) PT INR APTT Sodium Potassium Chloride Carbon Dioxide BUN Creatinine Glucose Plasma Lactic Acid Alvaro 2.3 H* 2.1 H* 2.6 H* Calcium C-Reactive Protein Total Protein Albumin Procalcitonin Urine Protein Urine Glucose (UA) Urine Mucus 11/20/20 11/20/20 11/20/20 13:48 15:15 15:15 WBC 13.9 H RBC 3.72 L Hgb 9.1 L Hct 31.3 L MCH 24.4 L MCHC 29.0 L RDW 17.3 H Immature Gran # Neutrophils # Neutrophils # (Manual) 13.70 H Lymphocytes # Lymphocytes # (Manual) 0.14 L Monocytes # Metamyelocytes # (Man) PT 16.2 H INR 1.6 H APTT 43.7 H Sodium Potassium Chloride Carbon Dioxide BUN Creatinine Glucose Plasma Lactic Acid Alvaro 2.2 H* Calcium C-Reactive Protein Total Protein Albumin Procalcitonin Urine Protein Urine Glucose (UA) Urine Mucus 11/20/20 11/20/20 11/20/20 17:38 20:11 21:51 WBC RBC Hgb Hct MCH MCHC RDW Immature Gran # Neutrophils # Neutrophils # (Manual) Lymphocytes # Lymphocytes # (Manual) Monocytes # Metamyelocytes # (Man) PT INR APTT 38.6 H Sodium Potassium Chloride Carbon Dioxide BUN Creatinine Glucose Plasma Lactic Acid Alvaro 2.7 H* 2.5 H* Calcium C-Reactive Protein Total Protein Albumin Procalcitonin Urine Protein Urine Glucose (UA) Urine Mucus 11/21/20 11/21/20 11/21/20 00:43 06:06 06:06 WBC 10.9 H RBC 3.43 L Hgb 8.4 L Hct 28.9 L MCH 24.6 L MCHC 29.2 L RDW 17.4 H Immature Gran # Neutrophils # Neutrophils # (Manual) 10.50 H Lymphocytes # Lymphocytes # (Manual) 0.22 L Monocytes # Metamyelocytes # (Man) 0.11 H PT INR APTT Sodium 134 L Potassium 5.5 H Chloride Carbon Dioxide BUN 38 H Creatinine 1.40 H Glucose 132 H Plasma Lactic Acid Alvaro 2.4 H* Calcium 8.0 L C-Reactive Protein 44.1 H Total Protein Albumin Procalcitonin Urine Protein Urine Glucose (UA) Urine Mucus 11/21/20 11/21/20 11/21/20 06:06 06:06 16:39 WBC RBC Hgb Hct MCH MCHC RDW Immature Gran # Neutrophils # Neutrophils # (Manual) Lymphocytes # Lymphocytes # (Manual) Monocytes # Metamyelocytes # (Man) PT 16.9 H INR 1.7 H APTT 49.3 H Sodium Potassium Chloride Carbon Dioxide BUN Creatinine Glucose Plasma Lactic Acid Alvaro 2.3 H* Calcium C-Reactive Protein Total Protein Albumin Procalcitonin Urine Protein Urine Glucose (UA) Urine Mucus 11/22/20 11/22/20 11/22/20 10:35 10:35 10:35 WBC 11.5 H RBC 3.21 L Hgb 8.1 L Hct 26.4 L MCH MCHC 30.7 L RDW 17.5 H Immature Gran # Neutrophils # Neutrophils # (Manual) Lymphocytes # Lymphocytes # (Manual) Monocytes # Metamyelocytes # (Man) PT INR APTT 40.6 H Sodium 134 L Potassium 5.2 H Chloride Carbon Dioxide BUN 51 H Creatinine 1.58 H Glucose 101 H Plasma Lactic Acid Alvaro Calcium 8.3 L C-Reactive Protein Total Protein Albumin Procalcitonin Urine Protein Urine Glucose (UA) Urine Mucus - Diagnostic Findings Chest x-ray: image reviewed CT scan - chest: image reviewed Assessment and Plan Assessment: Left lower extremity cellulitis with sepsis. Atrial fibrillation, chronic. Mental status changes, secondary to metabolic encephalopathy and sepsis. Congestive heart failure. History of chronic bronchial asthma. History of CAD with previous Heart catheterization and stent placement. Right nephrectomy. History of cataracts. History of osteoarthritis. History of obstructive sleep apnea syndrome. Prior history of MRSA infection of the leg. Anemia. Prerenal azotemia. Plan: Plan dated 11/22/2020. The patient will be transferred to [facility] eventually. Currently there is no beds available. The patient be transferred up into the intensive care unit for further monitoring and evaluation. Additional recommendations and suggestions are forthcoming. Prognosis is guarded. The patient is currently on cefepime and daptomycin. The patient's also on midodrine for low blood pressure. Time with Patient: Greater than 30
[2020-11-22] MEDS: MIDODRINE 5 MG TAB PO SCH (18:27)
--- NOTE | 2020-11-22 18:51 | CONS ---
CONSULTATION REASON FOR CONSULT: Renal failure. HISTORY OF PRESENT ILLNESS: Patient is a 80-year-old male who was admitted to the hospital with redness and pain and ulcers on his left lower extremity, this has worsened for the past few days prior to admission. It appears that there are plans for possible transfer to [facility]. Patient's blood pressure had dropped yesterday with systolic in the 70s. He did get 500 mL bolus as well. The patient's states that his blood pressure normally runs on the lower side with systolic just above 100 mmHg. Patient's serum creatinine was 1.4 mg/dL yesterday. Today it is at 1.5. He was 1.15 on initial admission on 11/17/2020. He is currently incontinent and a Man catheter will be placed. Blood pressure remains around 90s for systolic with repeat pressure at around 11:00 am this morning was 124/62. The patient has not received any IV contrast. He is currently maintained on daptomycin. Lactic acid was elevated 2.3. Repeat level did come down to 2.0. PAST MEDICAL HISTORY: Past medical history: Atrial fibrillation, asthma coronary artery disease, osteoarthritis, obstructive sleep apnea, cataracts, solitary kidney with history of right nephrectomy, history of MRSA infection in the leg. PAST SURGICAL HISTORY: Ablation, appendectomy, cardiac catheterization, coronary stent placement, hernia repair, left knee arthroplasty, right shoulder arthroplasty, PTCA, cardioversion. SOCIAL HISTORY: Negative for smoking, drug abuse or alcohol abuse. MEDICATIONS: Medications prior to admission included Prilosec, prednisone, Xarelto, Flomax, vitamin D, Cardizem, Singulair, Theophylline, vitamin C, albuterol, Lasix and [place]. ALLERGIES: ALLERGIES include IV CONTRAST, ASPIRIN, CHLORINE. PHYSICAL EXAMINATION: Patient is currently lying in bed. He does respond to simple questions but has been more confused. Blood pressure this morning was 93/55, heart rate 97 per minute. He is afebrile. Examination of the heart S1, S2. Examination of the lungs, decreased breath sounds at the bases. Abdomen is soft, nontender. Examination of lower extremities shows left lower extremity currently wrapped. There is edema noted. Peeling of the skin is seen. It appears to be draining 1+ edema noted in the right lower extremity. [employer] exam shows patient is confused. He is moving all 4 extremities. LAB: Show sodium 134, potassium 5.2, chloride 98, BUN 51, serum creatinine 1.58, hemoglobin 8.1 g/dL. ASSESSMENT: 1. Acute kidney injury mostly acute tubular necrosis associated with hypoperfusion as systolic blood pressure was in the 70s yesterday. I will add midodrine and we will hold off on any hypertensive medications. We also need accurate I's and O's. Therefore Man catheter will be placed. The patient's CT scan of the chest from yesterday shows bilateral new pulmonary infiltrates. Concern for possible increased pulmonary vasculature. Clinically patient does not appear to be significantly short of breath. We can continue the Lasix. The patient also has a solitary kidney. I will check an ultrasound of the kidneys. 2. History of right nephrectomy. 3. Left leg cellulitis maintained on antibiotics being followed by ID and vascular surgery. PLAN: Place Man catheter. Decrease dose of Lopressor. Add midodrine if blood pressure remains low. Add Lasix. Repeat labs in a.m. Avoid nephrotoxic agents. Thank you for this consultation. We will continue to follow the patient with you during his hospitalization. MURIEL / JANESN: [id number] / MTDD
--- NOTE | 2020-11-22 18:53 | P.PN ---
Subjective HISTORY OF PRESENTING ILLNESS This is a pleasant 80-year-old with past medical history significant for Coronary artery disease, atrial fibrillation, arthritis, obstructive sleep apnea, cellulitis, bilateral venous insufficiency worse on the left, low normal ejection fraction 50-55% who presented 11/17/2020 secondary to increased left lower extremity edema and erythema. Patient currently is fairly confused and most of history is supplied by . notes increased erythema over the prior few days prior to presentation. He was noted to have leukocytosis, mildly increased lactic acid, left leg cellulitis. He normally follows with Dr. Foster in for hia vascular issues. His admits he is normally in a boot on the left side for 45 minutes a day to help with his chronic venous insufficiency. He was placed on antibiotics and the erythema has somewhat improved however father is significant blistering and a fair amount of edema. Patient was noted to be in A. fib with RVR and was placed on Cardizem 180 mg daily which is his home dose as well as addition of metoprolol 25 mg twice a day. He is being diuresed with Lasix 40 mg IV daily. states she has not necessarily eaten in the last 3 days and is fairly lethargic, mainly from narcotics that he has been given. REVIEW OF SYSTEMS At the time of my exam: CONSTITUTIONAL: Denies fever or chills. CARDIOVASCULAR: Denies chest pain, shortness of breath, orthopnea, PND or palpi tations. RESPIRATORY: Denies cough. GASTROINTESTINAL: Denies abdominal pain, diarrhea, constipation, nausea or vomiting. MUSCULOSKELETAL: Denies myalgias. NEUROLOGIC: Denies numbness, tingling or weakness. ENDOCRINE: Denies fatigue, weight change, polydipsia or polyurina. GENITOURINARY: Denies burning, hematuria or urgency with micturation. HEMATOLOGIC: Denies history of anemia or bleeding. PHYSICAL EXAMINATION Vital signs reviewed. CONSTITUTIONAL: No apparent distress, lethargic but arousable HEENT: Head is normocephalic. Pupils are equal, round. Sclerae anicteric. Mucous membranes of the mouth are moist. No JVD. No carotid bruit. CHEST EXAMINATION: Lungs are clear to auscultation. No chest wall tenderness is noted on palpation or with deep breathing. HEART EXAMINATION: Irregular rate and rhythm. S1, S2 heard. No murmurs, gallops or rub. ABDOMEN: Soft, nontender. Positive bowel sounds. EXTREMITIES: 2+ pitting edema bilaterally with left lower extremity erythema up to thigh. NEUROLOGIC EXAMINATION: Patient is somnolent but arousable ASSESSMENT 1. Persistent Afib with intermittent Afib 2. Chronic diastolic heart failure 3. Essential hypertension 4. Chronic venous insufficiency 5. Ascending aortic aneurysm stable at 4.0 cm 6. Left lower extremity cellulitis 7. Altered mental status, likely mainly related to narcotic use, sepsis PLAN Heart rates are predominantly controlled on current medications. He does have continued lower extremity edema and we will continue with diuresis. Advised patient to continue to attempt to increase PO intake, proBNP increased to 4300. Objective - Vital Signs Vital signs: Vital Signs Temp 98.5 F 11/22/20 04:00 Pulse 95 11/22/20 16:00 Resp 16 11/22/20 16:00 BP 131/65 11/22/20 16:00 Pulse Ox 96 11/22/20 16:00 Intake & Output 11/21/20 11/22/20 11/22/20 18:59 06:59 18:59 Intake Total 0 438 Output Total 100 Balance 0 338 Weight 88 kg Intake: Intake, IV Titration 258 Amount Heparin Sod,Pork in 0.45% 258 NaCl 25,000 unit In 0.45 % NaCl 1 250ml.bag @ 11. 917 UNITS/KG/HR 10 mls/hr IV .Q24H [facility] Rx#: [id number] Oral 0 180 Output: Urine 100 Post Void Residual 0 Other: Voiding Method Urinal Indwelling Catheter # Voids 0 0 # Bowel Movements 0 0 - Labs CBC & Chem 7: 11/22/20 10:35 11/22/20 10:35 Labs: Abnormal Lab Results - Last 24 Hours (Table) 11/22/20 11/22/20 11/22/20 Range/Units 10:35 10:35 10:35 WBC 11.5 H (3.8-10.6) k/uL RBC 3.21 L (4.30-5.90) m/uL Hgb 8.1 L (13.0-17.5) gm/dL Hct 26.4 L (39.0-53.0) % MCHC 30.7 L (31.0-37.0) g/dL RDW 17.5 H (11.5-15.5) % APTT 40.6 H (22.0-30.0) sec Sodium 134 L (137-145) mmol/L Potassium 5.2 H (3.5-5.1) mmol/L BUN 51 H (9-20) mg/dL Creatinine 1.58 H (0.66-1.25) mg/dL Glucose 101 H (74-99) mg/dL Calcium 8.3 L (8.4-10.2) mg/dL Microbiology - Last 24 Hours (Table) 11/17/20 09:35 Blood Culture - Preliminary Blood No Growth after 120 hours 11/17/20 09:35 Blood Culture - Preliminary Blood No Growth after 120 hours 11/21/20 12:54 Gram Stain - Preliminary Leg - Left Wound Culture - Preliminary 11/21/20 06:06 Blood Culture - Preliminary Blood No Growth after 24 hours 11/20/20 05:10 Blood Culture - Preliminary Blood No Growth after 48 hours
[2020-11-22] MEDS: FORMOTEROL FUMARATE 20 MCG/2 ML NEBU INHALATION SCH (19:40)
[2020-11-22] MEDS: BUDESONIDE 1 MG/2 ML NEBU INHALATION SCH (19:40)
--- NOTE | 2020-11-22 20:13 | PN ---
PROGRESS NOTE DATE OF SERVICE: 11/22/2020 This 80-year-old gentleman with a past medical history of multiple medical problems admitted with significant cellulitis of the left leg. The patient also had significant pain also. The patient also had CHF as well as hypotension. Patient also had atrial fibrillation. Patient being closely monitored at this time. Lasix being introduced. The patient also had an episode of hypotension the night before. Blood pressure dropped in the 70s. Lactic acid was elevated. The possibility of sepsis and necrotic fascitis also considered. I discussed the case at length with the [facility] on the medical floor initially and subsequently with ICU and the patient is accepted for transfer at this time but apparently there is no bed at [facility] at this time. The patient is slightly restless and complaining of pain at this time. Please note the patient was stuporous and unconscious the day before. The chest CT was done which showed evidence of atelectasis and possible infiltrates as well. The patient also had a 4 cm aneurysm ascending aorta without any significant change. The patient is followed by Dr. Toney in the outpatient setting. PAST MEDICAL HISTORY: Reviewed. REVIEW OF SYSTEMS: Could not be taken, the patient is confused. CURRENT MEDICATIONS: Maalox, Pharr, Pulmicort, Cefepime, daptomycin, Cardizem. Medications reviewed. PHYSICAL EXAMINATION: Patient is conscious, confused. Pulse 95. Blood pressure 131/60, respirations 16, temperature is normal. Pulse ox 97% on 3 L. HEENT: Conjunctivae normal. NECK: No JVD. CARDIOVASCULAR: S1, S2 muffled. RESPIRATION: A few scattered rhonchi. ABDOMEN: Soft, nontender. LEGS: Significant pain and swelling and blisters of the left leg present. NERVOUS SYSTEM: Diffusely weak. LAB STUDIES: WBC 11.1, hemoglobin is 8.9, sodium 134, potassium 5.2. ASSESSMENT: 1. Acute severe cellulitis of the left leg with possible sepsis, present on admission. Rule out necrotic fasciitis. 2. Congestive heart failure, acute exacerbation, acute on chronic systolic to diastolic dysfunction ejection fraction 50-60 percent. 3. Atrial fibrillation with rapid ventricular rate. 4. Hypotension, multifactorial, possible cardiogenic shock or possibly secondary to sepsis. 5. Acute renal failure and acute kidney injury with acute tubular necrosis. 6. Left thigh superficial thrombophlebitis on IV heparin. 7. Heparin monitoring. 8. History of coronary artery disease/stent placement. 9. Obstructive sleep apnea. 10.Chronic bilateral swelling. 11.Gait dysfunction. 12.Possible bilateral pulmonary infiltrates, possible congestive heart failure, rule out pneumonia. 13.Hyponatremia. 14.Hyperkalemia. 15.Increased WBC. 16.Anemia multifactorial. RECOMMENDATIONS AND DISCUSSION: In this 80-year-old gentleman who presented with multiple complex medical issues, at this time, I recommend to continue current medications, symptomatic treatment. Continue with cautious diuresis. Ensure oxygenation. Continue the rest of medications and antibiotics per Infectious Disease and as mentioned earlier I recommended the patient to be transferred to [facility] once the bed is available. See orders for details. I had a detailed discussion with the family and understands and agrees. MURIEL / JANESN: [id number] /
[2020-11-22 20:58] LABS: Glucose,Whole Blood 97 mg/dL (75-99)
[2020-11-22] MEDS ORDERED: NALOXONE 0.4 MG/ML 1 ML VIAL IV PRN (21:54)
[2020-11-22 23:02] LABS: ABG Base Excess 3.6 mmol/L; ABG HCO3 27 mmol/L (21-25); ABG Oxygen Saturation 94.6 % (94-97); ABG PCO2 38 mmHg (35-45); ABG PH 7.47 (7.35-7.45); ABG PO2 78 mmHg (83-108); ABG TCO2 29 mmol/L (19-24); Allen Test Performed? Yes
[2020-11-23] MEDS: HYDROmorphone 0.5 MG/0.5 ML SYRINGE IVP PRN ×2 (01:30→06:49)
[2020-11-23 04:02] VITALS: TEMP 97.9
[2020-11-23] MEDS: HYDROcodone/APAP 10-325MG 1 EACH TAB PO PRN (04:28)
[2020-11-23 04:51] LABS: Anisocytosis Slight; Basophils # (A) 0.1 k/uL (0-0.2); Basophils % (A) 0 %; Eosinophils # (A) 0.1 k/uL (0-0.7); Eosinophils % (A) 1 %; HCT 31.9 % (39.0-53.0); HGB 9.3 gm/dL (13.0-17.5); Hypochromasia Marked; Lymphocytes # (A) 0.4 k/uL (1.0-4.8); Lymphocytes % (A) 3 %; MCH 24.3 pg (25.0-35.0); MCV 83.7 fL (80.0-100.0); Mean Platelet Volume 8.1; Monocytes # (A) 0.1 k/uL (0-1.0); Monocytes % (A) 1 %; Neutrophils # (A) 11.9 k/uL (1.3-7.7); Neutrophils % (A) 95 %; Platelet Count 180 k/uL (150-450); RBC 3.81 m/uL (4.30-5.90); RDW 17.3 % (11.5-15.5); WBC 12.5 k/uL (3.8-10.6)
[2020-11-23 05:05] LABS: ALT <6 U/L (4-49); AST 37 U/L (17-59); African American GFR (CKD) 50 (>60 ml/min/1.73 sqM); Alkaline Phosphatase 89 U/L (38-126); Anion Gap 10 mmol/L; Blood Urea Nitrogen 51 mg/dL (9-20); Calcium 8.5 mg/dL (8.4-10.2); Carbon Dioxide 23 mmol/L (22-30); Chloride 100 mmol/L (98-107); Glucose 77 mg/dL (74-99); Non-African American GFR(CKD) 44 (>60 ml/min/1.73 sqM); Potassium 5.1 mmol/L (3.5-5.1); Sodium 133 mmol/L (137-145); Total Bilirubin 0.3 mg/dL (0.2-1.3); Total Protein 4.3 g/dL (6.3-8.2)
[2020-11-23] MEDS: HEPARIN SOD,PORK IN 0.45% NACL 25,000 UNIT in 0.45% NACL 1 250ML.BAG IV SCH (05:20)
[2020-11-23] MEDS: MIDODRINE 5 MG TAB PO SCH (06:37)
--- NOTE | 2020-11-23 06:37 | P.PN ---
Subjective Progress Note Date: 11/23/20 Principal diagnosis: Sepsis, mental status changes. Pulmonary consult dated 11/22/2020. 80-year-old male who presents to the emergency department on November 17. He came with complaints of left leg pain and swelling and cellulitis of the left lower extremity. He does have a history of chronic atrial fibrillation. Since she's been here, his overall condition has worsened. He is much less alert and oriented when he first came in. I saw him in his room 374. His and daugh alida were in the room with him. The patient's currently on IV heparin. He is receiving supplemental oxygen. Apparently the family is planning to have her transferred to [facility]. Apparently no better yet available. In addition to the above, he has a history of atrial fibrillation, asthma, coronary disease, osteoarthritis, and sleep apnea. He also has a history of cataracts, and has only a left kidney. He has had a heart catheterization with stent as well as an ablation. Currently, white count 11.5, hemoglobin 8.1, hematocrit 26.4, and platelet count 182,000. PTT is 40.6. Sodium 134, potassium 5.2, chlorides 98, CO2 27, anion gap 9, BUN and creatinine were 51 and 1.58. Lactic acid initially was 2.4. All his culture data including blood and left leg cultures are negative thus far. Chest CT suggests bilateral pulmonary infiltrates and atelectasis, which are new compared to the older examination. Chest x-rays consistent with mild fluid overload and small effusions. Progress note dated 11/23/2020. The patient was transferred to the intensive care unit after I saw him yesterday. Was concerned about his mental status changes encephalopathy, as well as sepsis, heart failure, and atrial fibrillation. He is currently in room 262. He's on 2 L nasal cannula. Saturations are 92-93%. His heart rate is irregular at 1 18 bpm. The patient's getting saline at 10 mL an hour, and heparin via weightbased protocol. Clinically, he seems a bit more awake today than he did yesterday but he is very fidgety. White count 12.5, hemoglobin 9.3, hematocrit 31.9, platelet count 180,000. PTT is 46.3. Blood gases show pO2 of 78, pCO2 of 38, and pH 7.47. Sodium was 133, potassium 5.1, chlorides 100, CO2 23, anion gap 10, BUN 51, creatinine 1.51. N-terminal proBNP is elevated at 5250. Abdomen thus far, blood cultures and wound cultures from the leg are negative. Objective - Vital Signs Vital signs: Vital Signs Temp 97.9 F 11/23/20 04:00 Pulse 112 H 11/23/20 05:00 Resp 19 11/23/20 05:00 BP 106/58 11/23/20 05:00 Pulse Ox 93 L 11/23/20 05:00 Intake & Output 11/22/20 11/22/20 11/23/20 06:59 18:59 06:59 Intake Total 638 280.000 Output Total 100 515 Balance 538 -235.000 Weight 88 kg 87.5 kg Intake: IV 50 80 DAPTOmycin 500 mg In 50 Sodium Chloride 0.9% 50 ml @ 100 mls/hr IVPB Q24H JIMMY Rx#:[id number] Normal Saline 80 Intake, IV Titration 408 200.000 Amount Cefepime 2 gm In Sodium 100 Chloride 0.9% 100 ml @ 25 mls/hr IVPB Q12H JIMMY Rx# :[id number] Clindamycin 900 mg In 50 Dextrose 5% in Water 50 ml @ 50 mls/hr IVPB Q8HR JIMMY Rx#:[id number] Heparin Sod,Pork in 0.45% 258 200.000 NaCl 25,000 unit In 0.45 % NaCl 1 250ml.bag @ 11. 917 UNITS/KG/HR 10 mls/hr IV .Q24H JIMMY Rx#: [id number] Oral 180 Output: Urine 100 515 Post Void Residual 0 Other: Voiding Method Urinal Indwelling Catheter Indwelling Catheter # Voids 0 # Bowel Movements 0 - Exam No acute distress, confused and disoriented. Nasal O2 2 L, with saturation 93%. Very fidgety this morning. HEENT examination is grossly unremarkable. Neck supple. Full range of motion. No adenopathy thyromegaly or neck vein distention. Cardiovascular examination reveals an irregular rhythm and rate. S1-S2 normal. No S3 or S4. No discernible murmur noted. Heart sounds are distant. Heart rate is anywhere from 105 up to 125 bpm. Lungs reveal scattered rhonchi. No wheezes or crackles. Breath sounds equal bilaterally. He does not take deep breaths. Abdomen soft bowel sounds are heard. No masses or tenderness. Extremities significant cellulitis of the left lower extremity, significant tissue maceration, blister formation, edema, and erythema. Skin as above. Neurologic examination reveals this patient to be very confused. He is a bit more awake today. Very fidgety. - Labs CBC & Chem 7: 11/23/20 03:59 11/23/20 03:59 Labs: Abnormal Lab Results - Last 24 Hours (Table) 11/22/20 11/22/20 11/22/20 Range/Units 10:35 10:35 10:35 WBC 11.5 H (3.8-10.6) k/uL RBC 3.21 L (4.30-5.90) m/uL Hgb 8.1 L (13.0-17.5) gm/dL Hct 26.4 L (39.0-53.0) % MCH (25.0-35.0) pg MCHC 30.7 L (31.0-37.0) g/dL RDW 17.5 H (11.5-15.5) % Neutrophils # (1.3-7.7) k/uL Lymphocytes # (1.0-4.8) k/uL APTT 40.6 H (22.0-30.0) sec ABG pH (7.35-7.45) ABG pO2 (83-108) mmHg ABG HCO3 (21-25) mmol/L ABG Total CO2 (19-24) mmol/L Sodium 134 L (137-145) mmol/L Potassium 5.2 H (3.5-5.1) mmol/L BUN 51 H (9-20) mg/dL Creatinine 1.58 H (0.66-1.25) mg/dL Glucose 101 H (74-99) mg/dL Calcium 8.3 L (8.4-10.2) mg/dL Total Protein (6.3-8.2) g/dL Albumin (3.5-5.0) g/dL 11/22/20 11/22/20 11/23/20 Range/Units 18:20 22:57 01:20 WBC (3.8-10.6) k/uL RBC (4.30-5.90) m/uL Hgb (13.0-17.5) gm/dL Hct (39.0-53.0) % MCH (25.0-35.0) pg MCHC (31.0-37.0) g/dL RDW (11.5-15.5) % Neutrophils # (1.3-7.7) k/uL Lymphocytes # (1.0-4.8) k/uL APTT 43.0 H 46.3 H (22.0-30.0) sec ABG pH 7.47 H (7.35-7.45) ABG pO2 78 L (83-108) mmHg ABG HCO3 27 H (21-25) mmol/L ABG Total CO2 29 H (19-24) mmol/L Sodium (137-145) mmol/L Potassium (3.5-5.1) mmol/L BUN (9-20) mg/dL Creatinine (0.66-1.25) mg/dL Glucose (74-99) mg/dL Calcium (8.4-10.2) mg/dL Total Protein (6.3-8.2) g/dL Albumin (3.5-5.0) g/dL 11/23/20 11/23/20 Range/Units 03:59 03:59 WBC 12.5 H (3.8-10.6) k/uL RBC 3.81 L (4.30-5.90) m/uL Hgb 9.3 L (13.0-17.5) gm/dL Hct 31.9 L (39.0-53.0) % MCH 24.3 L (25.0-35.0) pg MCHC 29.0 L (31.0-37.0) g/dL RDW 17.3 H (11.5-15.5) % Neutrophils # 11.9 H (1.3-7.7) k/uL Lymphocytes # 0.4 L (1.0-4.8) k/uL APTT (22.0-30.0) sec ABG pH (7.35-7.45) ABG pO2 (83-108) mmHg ABG HCO3 (21-25) mmol/L ABG Total CO2 (19-24) mmol/L Sodium 133 L (137-145) mmol/L Potassium (3.5-5.1) mmol/L BUN 51 H (9-20) mg/dL Creatinine 1.51 H (0.66-1.25) mg/dL Glucose (74-99) mg/dL Calcium (8.4-10.2) mg/dL Total Protein 4.3 L (6.3-8.2) g/dL Albumin 2.0 L (3.5-5.0) g/dL Microbiology - Last 24 Hours (Table) 11/17/20 09:35 Blood Culture - Preliminary Blood No Growth after 120 hours 11/17/20 09:35 Blood Culture - Preliminary Blood No Growth after 120 hours 11/21/20 12:54 Gram Stain - Preliminary Leg - Left Wound Culture - Preliminary 11/21/20 06:06 Blood Culture - Preliminary Blood No Growth after 24 hours 11/20/20 05:10 Blood Culture - Preliminary Blood No Growth after 48 hours Assessment and Plan Assessment: Left lower extremity cellulitis with sepsis. Atrial fibrillation, chronic. Mental status changes, secondary to metabolic encephalopathy and sepsis. Congestive heart failure. History of chronic bronchial asthma, stable. History of CAD with previous Heart catheterization and stent placement. Right nephrectomy. History of cataracts. History of osteoarthritis. History of obstructive sleep apnea syndrome. Prior history of MRSA infection of the leg. Anemia. Prerenal azotemia. Plan: Plan dated 11/22/2020. The patient will be transferred to [facility] eventually. Currently there is no beds available. The patient be transferred up into the intensive care unit for further monitoring and evaluation. Additional recommendations and suggestions are forthcoming. Prognosis is guarded. The patient is currently on cefepime and daptomycin. The patient's also on midodrine for low blood pressure. Plan dated 11/23/2020. The patient remains on cefepime and daptomycin. Thus far, culture data is all negative. The patient appears to be a bit more awake and alert today but is much more fidgety. He is moving his arms and legs more and taking things. His saturations are about 92-93% on 2 L. The patient is still in atrial fibrillation. Rate is anywhere from about 105 up to 125 bpm. The patient remains on IV heparin. Additional recommendations and suggestions are forthcoming. The patient was to be transferred to [facility] as soon as a bed is made available. Time with Patient: Less than 30
[2020-11-23] MEDS: FORMOTEROL FUMARATE 20 MCG/2 ML NEBU INHALATION SCH (07:52)
[2020-11-23] MEDS: BUDESONIDE 1 MG/2 ML NEBU INHALATION SCH (07:52)
[2020-11-23 08:50] VITALS: RESP 21
[2020-11-23] MEDS ORDERED: FUROSEMIDE 10 MG/ML 4 ML VIAL IV SCH (09:00)
[2020-11-23] MEDS: MAGNESIUM OXIDE 400 MG TAB PO SCH (09:46)
[2020-11-23] MEDS: CYANOCOBALAMIN 500 MCG TAB PO SCH (09:46)
[2020-11-23] MEDS: FAMOTIDINE 20 MG TAB PO SCH (09:46)
[2020-11-23] MEDS: DILTIAZEM CD 180 MG CAP.ER.24H PO SCH (09:46)
[2020-11-23] MEDS: predniSONE 10 MG TAB PO SCH (09:47)
[2020-11-23] MEDS: TAMSULOSIN 0.4 MG CAP.ER.24H PO SCH (09:47)
[2020-11-23] MEDS: MONTELUKAST 10 MG TAB PO SCH (09:47)
[2020-11-23] MEDS: NYSTATIN 100,000 UNIT/GM POWD 15 GM TOPICAL SCH (09:47)
[2020-11-23] MEDS: NYSTATIN 100,000 UNIT/ML SUSP 500,000 UNIT/5 ML CUP PO SCH (09:47)
--- NOTE | 2020-11-23 10:00 | P.PN ---
Subjective Patient is seen in follow-up for acute kidney injury on chronic kidney disease. No improvement in mentation. Does not respond to verbal commands. Daughter present at bedside. Vital signs are stable. HEENT: Head exam is unremarkable. LUNGS: Breath sounds decreased. HEART: Irregular rate and rhythm. ABDOMEN: Soft, no distention. EXTREMITITES: Left lower extremity wrapped. 2+ edema right lower extremity. Objective - Vital Signs Vital signs: Vital Signs Temp 97.9 F 11/23/20 04:00 Pulse 115 H 11/23/20 08:18 Resp 21 11/23/20 08:00 BP 105/72 11/23/20 08:00 Pulse Ox 97 11/23/20 08:00 Intake & Output 11/22/20 11/23/20 11/23/20 18:59 06:59 18:59 Intake Total 638 290.000 20 Output Total 100 555 80 Balance 538 -265.000 -60 Weight 87.5 kg Intake: IV 50 90 20 DAPTOmycin 500 mg In 50 Sodium Chloride 0.9% 50 ml @ 100 mls/hr IVPB Q24H JIMMY Rx#:[id number] Normal Saline 90 20 Intake, IV Titration 408 200.000 Amount Cefepime 2 gm In Sodium 100 Chloride 0.9% 100 ml @ 25 mls/hr IVPB Q12H JIMMY Rx# :[id number] Clindamycin 900 mg In 50 Dextrose 5% in Water 50 ml @ 50 mls/hr IVPB Q8HR JIMMY Rx#:[id number] Heparin Sod,Pork in 0.45% 258 200.000 NaCl 25,000 unit In 0.45 % NaCl 1 250ml.bag @ 11. 917 UNITS/KG/HR 10 mls/hr IV .Q24H JIMMY Rx#: [id number] Oral 180 Output: Urine 100 555 80 Post Void Residual 0 Other: Voiding Method Indwelling Catheter Indwelling Catheter - Labs CBC & Chem 7: 11/23/20 03:59 11/23/20 03:59 Labs: Abnormal Lab Results - Last 24 Hours (Table) 11/22/20 11/22/20 11/22/20 Range/Units 10:35 10:35 10:35 WBC 11.5 H (3.8-10.6) k/uL RBC 3.21 L (4.30-5.90) m/uL Hgb 8.1 L (13.0-17.5) gm/dL Hct 26.4 L (39.0-53.0) % MCH (25.0-35.0) pg MCHC 30.7 L (31.0-37.0) g/dL RDW 17.5 H (11.5-15.5) % Neutrophils # (1.3-7.7) k/uL Lymphocytes # (1.0-4.8) k/uL APTT 40.6 H (22.0-30.0) sec ABG pH (7.35-7.45) ABG pO2 (83-108) mmHg ABG HCO3 (21-25) mmol/L ABG Total CO2 (19-24) mmol/L Sodium 134 L (137-145) mmol/L Potassium 5.2 H (3.5-5.1) mmol/L BUN 51 H (9-20) mg/dL Creatinine 1.58 H (0.66-1.25) mg/dL Glucose 101 H (74-99) mg/dL Calcium 8.3 L (8.4-10.2) mg/dL Total Protein (6.3-8.2) g/dL Albumin (3.5-5.0) g/dL 11/22/20 11/22/20 11/23/20 Range/Units 18:20 22:57 01:20 WBC (3.8-10.6) k/uL RBC (4.30-5.90) m/uL Hgb (13.0-17.5) gm/dL Hct (39.0-53.0) % MCH (25.0-35.0) pg MCHC (31.0-37.0) g/dL RDW (11.5-15.5) % Neutrophils # (1.3-7.7) k/uL Lymphocytes # (1.0-4.8) k/uL APTT 43.0 H 46.3 H (22.0-30.0) sec ABG pH 7.47 H (7.35-7.45) ABG pO2 78 L (83-108) mmHg ABG HCO3 27 H (21-25) mmol/L ABG Total CO2 29 H (19-24) mmol/L Sodium (137-145) mmol/L Potassium (3.5-5.1) mmol/L BUN (9-20) mg/dL Creatinine (0.66-1.25) mg/dL Glucose (74-99) mg/dL Calcium (8.4-10.2) mg/dL Total Protein (6.3-8.2) g/dL Albumin (3.5-5.0) g/dL 11/23/20 11/23/20 Range/Units 03:59 03:59 WBC 12.5 H (3.8-10.6) k/uL RBC 3.81 L (4.30-5.90) m/uL Hgb 9.3 L (13.0-17.5) gm/dL Hct 31.9 L (39.0-53.0) % MCH 24.3 L (25.0-35.0) pg MCHC 29.0 L (31.0-37.0) g/dL RDW 17.3 H (11.5-15.5) % Neutrophils # 11.9 H (1.3-7.7) k/uL Lymphocytes # 0.4 L (1.0-4.8) k/uL APTT (22.0-30.0) sec ABG pH (7.35-7.45) ABG pO2 (83-108) mmHg ABG HCO3 (21-25) mmol/L ABG Total CO2 (19-24) mmol/L Sodium 133 L (137-145) mmol/L Potassium (3.5-5.1) mmol/L BUN 51 H (9-20) mg/dL Creatinine 1.51 H (0.66-1.25) mg/dL Glucose (74-99) mg/dL Calcium (8.4-10.2) mg/dL Total Protein 4.3 L (6.3-8.2) g/dL Albumin 2.0 L (3.5-5.0) g/dL Microbiology - Last 24 Hours (Table) 11/21/20 06:06 Blood Culture - Preliminary Blood No Growth after 48 hours 11/20/20 05:10 Blood Culture - Preliminary Blood No Growth after 72 hours 11/17/20 09:35 Blood Culture - Preliminary Blood No Growth after 120 hours 11/17/20 09:35 Blood Culture - Preliminary Blood No Growth after 120 hours 11/21/20 12:54 Gram Stain - Preliminary Leg - Left Wound Culture - Preliminary Assessment and Plan Plan: Assessment: 1. Acute kidney injury secondary to ATN secondary to infection and hemodynamic instability. Renal function stable. Creatinine 1.51 today. 2. 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 3. A. fib with RVR. Maintained on heparin drip. Cardiology following. 4. Lower extremity cellulitis maintained on antibiotics. Concern for necrotizing fasciitis. 5. Acute on chronic diastolic CHF. Plan: Maintain IV Lasix. Avoid nephrotoxins. Plan for transfer to [facility] today. Case was discussed with the daughter who was present at bedside.
[2020-11-23 10:03] VITALS: BMI 29.3
[2020-11-23] MEDS ORDERED: HALOPERIDOL LACTATE 5 MG/ML 1 ML VIAL IVP PRN (10:36)
[2020-11-23 10:52] VITALS: BP 95/53; PULSE 122
--- NOTE | 2020-11-23 11:16 | P.PN ---
Subjective HISTORY OF PRESENTING ILLNESS This is a pleasant 80-year-old with past medical history significant for Coronary artery disease with PCI to distal RCA and proximal OM1 in 2007, atrial fibrillation (on Xarelto), arthritis, obstructive sleep apnea, cellulitis, bilateral venous insufficiency worse on the left, low normal ejection fraction 50-55% who presented 11/17/2020 secondary to increased left lower extremity edema and erythema. notes increased erythema over the prior few days prior to presentation. He was noted to have leukocytosis, mildly increased lactic acid, left leg cellulitis. His admits he is normally in a boot on the left side for 45 minutes a day to help with his chronic venous insufficiency. states she has not necessarily eaten in the last 3 days and is fairly lethargic, mainly from narcotics that he has been given. He follows in the office with Dr. Cancino. We are being consulted for atrial fibrillation with rapid ventricular response. Patient was placed on Cardizem 180 mg daily which is his home dose as well as addition of metoprolol 25 mg twice a day. He is being diuresed with Lasix 40 mg IV daily. 11/23/2020: Patient seen and examined at bedside in the intensive care unit. Patient currently is fairly confused, somnolent but arousable. He has significant blistering of the left lower extremity, erythema up to thigh. He is currently being maintained on daptomycin IV, cefepime IV, Cardizem 180 mg daily, IV Lasix 40 mg daily, heparin drip, metoprolol tartrate 25 mg twice a day, midodrine 5 mg twice a day PHYSICAL EXAMINATION Vital signs reviewed. CONSTITUTIONAL: No apparent distress, lethargic but arousable HEENT: Mucous membranes of the mouth are moist. No JVD. No carotid bruit. CHEST EXAMINATION: Lungs are clear to auscultation. No chest wall tenderness is noted on palpation or with deep breathing. HEART EXAMINATION: Irregular rate and rhythm. S1, S2 heard. No murmurs, gallops or rub. ABDOMEN: Soft, nontender. Positive bowel sounds. EXTREMITIES: 2+ pitting edema bilaterally with left lower extremity erythema up to thigh. Wrapped in yesika bandages. Blistering at the top of the foot. NEUROLOGIC EXAMINATION: Patient is somnolent but arousable. Confused ASSESSMENT Chronic Persistent atrial fibrillation on Xarelto at home, Currently on heparin drip Coronary artery disease with PCI to distal RCA and proximal OM1 in 2007 Chronic diastolic heart failure Essential hypertension Chronic venous insufficiency Ascending aortic aneurysm stable at 4.0 cm Left lower extremity cellulitis Altered mental status, likely mainly related to narcotic use, sepsis PLAN Heart rates are slightly tachycardic this morning HR 100-120, however, did not get his metoprolol this morning We recommend continuing Cardizem, IV Lasix, Heparin drip, metoprolol tartrate 25mg BID Patient is being transferred to [facility] for further management this morning Objective - Vital Signs Vital signs: Vital Signs Temp 97.9 F 11/23/20 04:00 Pulse 122 H 11/23/20 10:00 Resp 21 11/23/20 08:00 BP 95/53 11/23/20 10:00 Pulse Ox 94 L 11/23/20 10:00 Intake & Output 11/22/20 11/23/20 11/23/20 18:59 06:59 18:59 Intake Total 638 290.000 40 Output Total 100 555 180 Balance 538 -265.000 -140 Weight 87.5 kg 87.5 kg Intake: IV 50 90 40 DAPTOmycin 500 mg In 50 Sodium Chloride 0.9% 50 ml @ 100 mls/hr IVPB Q24H JIMMY Rx#:[id number] Normal Saline 90 40 Intake, IV Titration 408 200.000 Amount Cefepime 2 gm In Sodium 100 Chloride 0.9% 100 ml @ 25 mls/hr IVPB Q12H JIMMY Rx# :[id number] Clindamycin 900 mg In 50 Dextrose 5% in Water 50 ml @ 50 mls/hr IVPB Q8HR JIMMY Rx#:[id number] Heparin Sod,Pork in 0.45% 258 200.000 NaCl 25,000 unit In 0.45 % NaCl 1 250ml.bag @ 11. 917 UNITS/KG/HR 10 mls/hr IV .Q24H JIMMY Rx#: [id number] Oral 180 Output: Urine 100 555 180 Post Void Residual 0 Other: Voiding Method Indwelling Catheter Indwelling Catheter Indwelling Catheter - Labs CBC & Chem 7: 11/23/20 03:59 11/23/20 03:59 Labs: Abnormal Lab Results - Last 24 Hours (Table) 11/22/20 11/22/20 11/22/20 Range/Units 10:35 10:35 10:35 WBC 11.5 H (3.8-10.6) k/uL RBC 3.21 L (4.30-5.90) m/uL Hgb 8.1 L (13.0-17.5) gm/dL Hct 26.4 L (39.0-53.0) % MCH (25.0-35.0) pg MCHC 30.7 L (31.0-37.0) g/dL RDW 17.5 H (11.5-15.5) % Neutrophils # (1.3-7.7) k/uL Lymphocytes # (1.0-4.8) k/uL APTT 40.6 H (22.0-30.0) sec ABG pH (7.35-7.45) ABG pO2 (83-108) mmHg ABG HCO3 (21-25) mmol/L ABG Total CO2 (19-24) mmol/L Sodium 134 L (137-145) mmol/L Potassium 5.2 H (3.5-5.1) mmol/L BUN 51 H (9-20) mg/dL Creatinine 1.58 H (0.66-1.25) mg/dL Glucose 101 H (74-99) mg/dL Calcium 8.3 L (8.4-10.2) mg/dL Total Protein (6.3-8.2) g/dL Albumin (3.5-5.0) g/dL 11/22/20 11/22/20 11/23/20 Range/Units 18:20 22:57 01:20 WBC (3.8-10.6) k/uL RBC (4.30-5.90) m/uL Hgb (13.0-17.5) gm/dL Hct (39.0-53.0) % MCH (25.0-35.0) pg MCHC (31.0-37.0) g/dL RDW (11.5-15.5) % Neutrophils # (1.3-7.7) k/uL Lymphocytes # (1.0-4.8) k/uL APTT 43.0 H 46.3 H (22.0-30.0) sec ABG pH 7.47 H (7.35-7.45) ABG pO2 78 L (83-108) mmHg ABG HCO3 27 H (21-25) mmol/L ABG Total CO2 29 H (19-24) mmol/L Sodium (137-145) mmol/L Potassium (3.5-5.1) mmol/L BUN (9-20) mg/dL Creatinine (0.66-1.25) mg/dL Glucose (74-99) mg/dL Calcium (8.4-10.2) mg/dL Total Protein (6.3-8.2) g/dL Albumin (3.5-5.0) g/dL 11/23/20 11/23/20 Range/Units 03:59 03:59 WBC 12.5 H (3.8-10.6) k/uL RBC 3.81 L (4.30-5.90) m/uL Hgb 9.3 L (13.0-17.5) gm/dL Hct 31.9 L (39.0-53.0) % MCH 24.3 L (25.0-35.0) pg MCHC 29.0 L (31.0-37.0) g/dL RDW 17.3 H (11.5-15.5) % Neutrophils # 11.9 H (1.3-7.7) k/uL Lymphocytes # 0.4 L (1.0-4.8) k/uL APTT (22.0-30.0) sec ABG pH (7.35-7.45) ABG pO2 (83-108) mmHg ABG HCO3 (21-25) mmol/L ABG Total CO2 (19-24) mmol/L Sodium 133 L (137-145) mmol/L Potassium (3.5-5.1) mmol/L BUN 51 H (9-20) mg/dL Creatinine 1.51 H (0.66-1.25) mg/dL Glucose (74-99) mg/dL Calcium (8.4-10.2) mg/dL Total Protein 4.3 L (6.3-8.2) g/dL Albumin 2.0 L (3.5-5.0) g/dL Microbiology - Last 24 Hours (Table) 11/21/20 06:06 Blood Culture - Preliminary Blood No Growth after 48 hours 11/20/20 05:10 Blood Culture - Preliminary Blood No Growth after 72 hours 11/17/20 09:35 Blood Culture - Preliminary Blood No Growth after 120 hours 11/17/20 09:35 Blood Culture - Preliminary Blood No Growth after 120 hours 11/21/20 12:54 Gram Stain - Preliminary Leg - Left Wound Culture - Preliminary
--- NOTE | 2020-11-23 19:43 | DS ---
DISCHARGE SUMMARY FINAL DIAGNOSES: 1. Acute severe cellulitis of the left leg with possible sepsis with failure of improvement, present on admission, rule out necrotizing fasciitis. 2. Congestive heart failure exacerbation with acute on chronic diastolic dysfunction, ejection fraction 50-60 percent. 3. Atrial fibrillation with rapid ventricular rate. 4. Hypotension multifactorial possibly cardiogenic shock, possible secondary to sepsis. 5. Acute renal failure with acute kidney injury with acute tubular necrosis. 6. Left thigh superficial thrombophlebitis on IV heparin. 7. Heparin monitoring. 8. History of coronary artery disease, stent placement. 9. Obstructive sleep apnea. 10.Chronic bilateral leg swelling. 11.Gait dysfunction. 12.Possible bilateral pulmonary infiltrates, possible congestive heart failure, rule out pneumonia. 13.Hyponatremia. 14.Hyperkalemia. 15.WBC. 16.Anemia, multifactorial. 17.FULL CODE. DISCHARGE DISPOSITION: The patient being transferred in stable condition with guarded prognosis to [facility] ICU. Total time 35 minutes. HISTORY OF PRESENT ILLNESS: This 80-year-old gentleman with a past medical history of multiple medical problems was admitted with acute bilateral leg cellulitis. The patient also had significantly worsening cellulitis with blister formation and necrotic fascitis. Patient is suspected but CT scan of the leg did not show any acute changes. The patient also had hypotension, multiple cardiac issues as mentioned earlier. Patient was also monitored in the telemetry. I discussed the case at length with the [facility] MICU fellow and the patient being transferred to [facility] for further evaluation and treatment. Prognosis remained guarded through hospital stay and discussed with the family on multiple occasions. Please refer to the multiple progress notes and consultation notes and as well as staff notes for further information. MMODL / IJN: [id number] /
== END 2020-11-23 11:45 | disposition short-term general hospital (02) | DRG 871 ==
LOC: EC 08:51 → 4SSUR 11:05 → 1SOBS 18:26 → 4SSUR 18:28 → 3SCARD 11-20 08:43 → 2SICU 11-22 20:44
PROVIDERS: ADMIT Internal Medicine; ATTEND Internal Medicine
DX: A41.9 Sepsis, unspecified organism (principal); M72.6 Necrotizing fasciitis; G93.41 Metabolic encephalopathy; I50.43 Acute on chronic combined systolic (congestive) and diastolic (congestive) heart failure; N17.0 Acute kidney failure with tubular necrosis; R65.21 Severe sepsis with septic shock; R57.0 Cardiogenic shock; B37.0 Candidal stomatitis; E87.1 Hypo-osmolality and hyponatremia; I13.0 Hypertensive heart and chronic kidney disease with heart failure and stage 1 through stage 4 chronic kidney disease, or unspecified chronic kidney disease; I48.19 Other persistent atrial fibrillation; J98.11 Atelectasis; L03.115 Cellulitis of right lower limb; L03.116 Cellulitis of left lower limb; B35.3 Tinea pedis; B95.5 Unspecified streptococcus as the cause of diseases classified elsewhere; E78.5 Hyperlipidemia, unspecified; E87.5 Hyperkalemia; G47.33 Obstructive sleep apnea (adult) (pediatric); I25.10 Atherosclerotic heart disease of native coronary artery without angina pectoris; I71.2 Thoracic aortic aneurysm, without rupture; D63.1 Anemia in chronic kidney disease; Z20.822 Contact with and (suspected) exposure to COVID-19; I80.9 Phlebitis and thrombophlebitis of unspecified site; I87.2 Venous insufficiency (chronic) (peripheral); I89.0 Lymphedema, not elsewhere classified; J44.9 Chronic obstructive pulmonary disease, unspecified; M19.90 Unspecified osteoarthritis, unspecified site; N18.2 Chronic kidney disease, stage 2 (mild); Z79.01 Long term (current) use of anticoagulants; Z79.51 Long term (current) use of inhaled steroids; Z79.899 Other long term (current) drug therapy; Z80.3 Family history of malignant neoplasm of breast; Z82.49 Family history of ischemic heart disease and other diseases of the circulatory system; Z86.12 Personal history of poliomyelitis; Z86.14 Personal history of Methicillin resistant Staphylococcus aureus infection; Z87.891 Personal history of nicotine dependence; Z90.49 Acquired absence of other specified parts of digestive tract; Z90.5 Acquired absence of kidney; Z95.5 Presence of coronary angioplasty implant and graft; Z96.611 Presence of right artificial shoulder joint; Z96.652 Presence of left artificial knee joint; Z98.49 Cataract extraction status, unspecified eye; Z88.6 Allergy status to analgesic agent; Z91.041 Radiographic dye allergy status; Z82.3 Family history of stroke
CPT/HCPCS: 36415; 36600; 71045; 71046; 71250; 76770; 80048; 80053; 81001; 82805; 83605; 83735; 83880; 84145; 84443; 85025; 85027; 85610; 85730; 86140; 87040; 87070; 87205; 87635; 93005; 93306; 94640; 94760; 96365; 96375; 99291